=== PATIENT | male | born 1965 | race African-American/Black ===

== ENCOUNTER 2016-09-10 13:02 | Inpatient (IN) | payer MEDICARE, MEDICAID ==
[2016-09-10] VITALS (7 sets, daily range): BP systolic 167–184; BP diastolic 80–99
[~2016-09-10] VITALS: Ht 185.4 cm; Wt 95.0 kg
[~2016-09-10 13:02] MED LIST: CEPHALEXIN500 MG OR; FLEXERIL OR; GLIPIZIDE ER10 MG OR; KEFLEX500 MG PO; LORTAB 10 PO; LORTAB 5 OR; MEDDOSEPAK OR; METFORMIN500 MG PO; NAPROXEN375 MG OR; NEURONTIN100 MG PO; NEURONTIN300 MG OR; NOVOLIN 70/30 SC; NOVOLIN 701000 UNITS SC; NOVOLOG MIX100 U/ML SC; REGLAN10 MG PO; ULTRAM50 M1 PO; ZOFRAN ODT8 MG OR; [UNRECOGNIZED DRUG - REMARK]
[2016-09-10 14:32] LABS: HEMATOCRIT 29.3 % (39.0-50.0); HEMOGLOBIN 9.3 g/dl (14.0-18.0); IMMATURE GRANULOCYTES 1.3 % (0.0-1.0); MEAN CELL VOLUME 79.8 fL CALC (80.0-100.0); MEAN CORPUSCULAR HGB 25.3 pG CALC (26.0-32.0); MEAN CORPUSCULAR HGB CONC 31.7 g/L CALC (32.0-36.0); NEUT# 24.48 thou/uL (1.82-7.42); RED BLOOD COUNT 3.67 mill/uL (4.70-6.10); RED CELL DISTRI WIDTH 14.7 % (11.5-15.5)
[2016-09-10 14:51] LABS: ALBUMIN 3.9 g/dL (3.2-5.0); ALKALINE PHOSPHATASE 207 u/l (38-126); AMYLASE 187 u/l (30-110); ANION GAP 31 (6-22 (CALC)); BILIRUBIN, TOTAL 1.1 mg/dL (0.0-1.4); BUN 21 mg/dL (9-20); BUN/CREATININE RATIO 14 (12-20 (CALC)); CALCIUM 9.9 mg/dL (8.4-10.2); CARBON DIOXIDE 16 mmol/l (22-30); CHLORIDE 97 mmol/l (95-108); CREATININE 1.6 mg/dL (0.7-1.3); GFR 45 ML/MIN (>=60 (CALC)); GFR FOR AFR.AMER. 55 ML/MIN (>=60 (CALC)); LIPASE 17 u/l (23-300); POTASSIUM 4.2 mmol/l (3.5-5.1); SGOT/AST 14 u/l (17-59); SGPT/ALT 15 u/l (21-72); SODIUM 139 mmol/l (137-146); TOTAL PROTEIN 8.9 g/dL (6.3-8.2)
[2016-09-10 14:59] LABS: GLUCOSE 630 mg/dL (75-110)
[2016-09-10 15:02] LABS: MYOGLOBIN 79 ng/mL (0 - 121)
[2016-09-10 18:52] LABS: POTASSIUM 4.5 mmol/l (3.5-5.1)
[2016-09-10 23:37] LABS: URINE BILIRUBIN - DIPSTICK NEGATIVE (NEGATIVE); URINE BLOOD DIPSTICK LARGE (NEGATIVE); URINE CLARITY CLEAR; URINE COLOR YELLOW; URINE GLUCOSE - DIPSTICK >=1000 mg/dL (NEGATIVE); URINE KETONE >=80 mg/dL (NEGATIVE); URINE LEUK ESTERASE NEGATIVE (Negative); URINE NITRITE - DIPSTICK NEGATIVE (Negative); URINE PH 5.5 (4.5-8.0); URINE PROTEIN - DIPSTICK >=300 mg/dL (NEG-TRACE); URINE UROBILINOGEN - DIPSTICK 0.2 E.U./dL (0.2)
[2016-09-10 23:52] LABS: URINE WBC 0-2 WBC/hpf (0-5)
[2016-09-11] VITALS (26 sets, daily range): BP systolic 142–197; BP diastolic 55–112
[2016-09-11 00:52] LABS: POTASSIUM 4.1 mmol/l (3.5-5.1)
[2016-09-11 04:40] LABS: HEMATOCRIT 31.4 % (39.0-50.0); HEMOGLOBIN 10.2 g/dl (14.0-18.0); MEAN CELL VOLUME 78.3 fL CALC (80.0-100.0); MEAN CORPUSCULAR HGB 25.4 pG CALC (26.0-32.0); MEAN CORPUSCULAR HGB CONC 32.5 g/L CALC (32.0-36.0); NEUT# 22.36 thou/uL (1.82-7.42); RED BLOOD COUNT 4.01 mill/uL (4.70-6.10); RED CELL DISTRI WIDTH 15.2 % (11.5-15.5)
[2016-09-11 04:58] LABS: MAGNESIUM 1.8 mg/dL (1.6-2.3)
[2016-09-11 05:01] LABS: ANION GAP 24 (6-22 (CALC)); BUN 18 mg/dL (9-20); BUN/CREATININE RATIO 16 (12-20 (CALC)); CALCIUM 9.7 mg/dL (8.4-10.2); CARBON DIOXIDE 18 mmol/l (22-30); CHLORIDE 109 mmol/l (95-108); CREATININE 1.1 mg/dL (0.7-1.3); GFR > 60 ML/MIN (>=60 (CALC)); GFR FOR AFR.AMER. > 60 ML/MIN (>=60 (CALC)); GLUCOSE 373 mg/dL (75-110); POTASSIUM 3.9 mmol/l (3.5-5.1); SODIUM 147 mmol/l (137-146)
[2016-09-11 10:42] LABS: ANION GAP 19 (6-22 (CALC)); BUN 16 mg/dL (9-20); BUN/CREATININE RATIO 16 (12-20 (CALC)); CALCIUM 9.5 mg/dL (8.4-10.2); CARBON DIOXIDE 22 mmol/l (22-30); CHLORIDE 109 mmol/l (95-108); GFR > 60 ML/MIN (>=60 (CALC)); GFR FOR AFR.AMER. > 60 ML/MIN (>=60 (CALC)); GLUCOSE 300 mg/dL (75-110); POTASSIUM 3.6 mmol/l (3.5-5.1); SODIUM 146 mmol/l (137-146)
[2016-09-11 14:09] LABS: ANION GAP 19 (6-22 (CALC)); BUN 14 mg/dL (9-20); BUN/CREATININE RATIO 15 (12-20 (CALC)); CALCIUM 9.4 mg/dL (8.4-10.2); CARBON DIOXIDE 20 mmol/l (22-30); CHLORIDE 109 mmol/l (95-108); GFR > 60 ML/MIN (>=60 (CALC)); GFR FOR AFR.AMER. > 60 ML/MIN (>=60 (CALC)); GLUCOSE 283 mg/dL (75-110); POTASSIUM 3.7 mmol/l (3.5-5.1); SODIUM 145 mmol/l (137-146)
[2016-09-12] VITALS (10 sets, daily range): BP systolic 150–179; BP diastolic 78–97
[2016-09-12 04:40] LABS: HEMATOCRIT 35.5 % (39.0-50.0); HEMOGLOBIN 11.6 g/dl (14.0-18.0); IMMATURE GRANULOCYTES 0.9 % (0.0-1.0); MEAN CORPUSCULAR HGB 25.2 pG CALC (26.0-32.0); MEAN CORPUSCULAR HGB CONC 32.7 g/L CALC (32.0-36.0); NEUT# 16.95 thou/uL (1.82-7.42); RED BLOOD COUNT 4.61 mill/uL (4.70-6.10); RED CELL DISTRI WIDTH 15.5 % (11.5-15.5)
[2016-09-12 05:03] LABS: ALBUMIN 3.3 g/dL (3.2-5.0); ALKALINE PHOSPHATASE 190 u/l (38-126); ANION GAP 19 (6-22 (CALC)); BILIRUBIN, TOTAL 0.7 mg/dL (0.0-1.4); BUN 15 mg/dL (9-20); BUN/CREATININE RATIO 16 (12-20 (CALC)); CALCIUM 9.3 mg/dL (8.4-10.2); CARBON DIOXIDE 22 mmol/l (22-30); CHLORIDE 103 mmol/l (95-108); CREATININE 0.9 mg/dL (0.7-1.3); GFR > 60 ML/MIN (>=60 (CALC)); GFR FOR AFR.AMER. > 60 ML/MIN (>=60 (CALC)); GLUCOSE 280 mg/dL (75-110); MAGNESIUM 1.5 mg/dL (1.6-2.3); POTASSIUM 3.7 mmol/l (3.5-5.1); SGOT/AST 14 u/l (17-59); SGPT/ALT 21 u/l (21-72); SODIUM 139 mmol/l (137-146)
== END 2016-09-12 12:25 | DRG 871 ==
LOC: ED 13:02 → ED-I 16:00 → ED 17:44 → ICU 17:45
PROVIDERS: Emergency Medicine; ADMIT Internal Medicine; ATTEND Internal Medicine
PROC: 02HV33Z Insertion of Infusion Device into Superior Vena Cava, Percutaneous Approach (ICD-10-PCS; principal; 2016-09-11)
PROC: B518ZZA Fluoroscopy of Superior Vena Cava, Guidance (ICD-10-PCS; 2016-09-11)
DX: A41.02 Sepsis due to Methicillin resistant Staphylococcus aureus (principal); E13.10 Other specified diabetes mellitus with ketoacidosis without coma; N17.9 Acute kidney failure, unspecified; M86.9 Osteomyelitis, unspecified; R65.20 Severe sepsis without septic shock; E11.40 Type 2 diabetes mellitus with diabetic neuropathy, unspecified; E11.621 Type 2 diabetes mellitus with foot ulcer; E11.69 Type 2 diabetes mellitus with other specified complication; I10 Essential (primary) hypertension; L97.529 Non-pressure chronic ulcer of other part of left foot with unspecified severity; Z79.4 Long term (current) use of insulin; Z91.14 Patient's other noncompliance with medication regimen
CPT/HCPCS: J3370

== ENCOUNTER 2017-09-14 19:41 | Emergency (ER) | payer MEDICARE, MEDICAID ==
[~2017-09-14] VITALS: Ht 185.4 cm; Wt 102.6 kg
[2017-09-14 20:45] VITALS: BP 149/81
== END 2017-09-14 20:45 | disposition home or self-care (01) ==
LOC: ED 19:41
DX: T63.2X1A Toxic effect of venom of scorpion, accidental (unintentional), initial encounter (principal); E11.9 Type 2 diabetes mellitus without complications; C95.90 Leukemia, unspecified not having achieved remission; Z89.512 Acquired absence of left leg below knee

== ENCOUNTER 2018-06-14 20:40 | Emergency (ER) | payer MEDICARE, OTHER ==
[~2018-06-14] VITALS: Ht 185.4 cm; Wt 95.0 kg
[2018-06-14] MEDS ORDERED: AMOXICILLIN500 MG PO (22:47)
[2018-06-14 22:50] VITALS: BP 151/92
== END 2018-06-14 23:10 | disposition home or self-care (01) ==
LOC: ED 20:40
DX: J20.9 Acute bronchitis, unspecified (principal); E11.9 Type 2 diabetes mellitus without complications; C95.90 Leukemia, unspecified not having achieved remission; Z89.512 Acquired absence of left leg below knee

== ENCOUNTER 2018-10-02 09:39 | Emergency (ER) | payer MEDICARE, MEDICAID ==
[~2018-10-02] VITALS: Ht 185.4 cm; Wt 100.0 kg
[~2018-10-02 09:39] MED LIST changes: +AMOXICILLIN500 MG PO
[2018-10-02] MEDS ORDERED: CLEOCIN300 MG PO (10:42)
[2018-10-02 10:45] VITALS: BP 146/78
== END 2018-10-02 10:51 | disposition home or self-care (01) ==
LOC: ED 09:39
DX: S91.331A Puncture wound without foreign body, right foot, initial encounter (principal); E11.9 Type 2 diabetes mellitus without complications; Z89.512 Acquired absence of left leg below knee; W45.0XXA Nail entering through skin, initial encounter

== ENCOUNTER 2018-12-11 10:58 | Observation (INO) | payer MEDICARE, MEDICAID ==
[~2018-12-11] VITALS: Ht 185.4 cm; Wt 93.9 kg
[~2018-12-11 10:58] MED LIST changes: +CLEOCIN300 MG PO
[2018-12-11 11:21] LABS: HEMATOCRIT 36.7 % (39.0-50.0); HEMOGLOBIN 12.2 g/dl (14.0-18.0); IMMATURE GRANULOCYTES 0.4 % (0.0-5.0); MEAN CORPUSCULAR HGB 26.9 pG CALC (26.0-32.0); MEAN CORPUSCULAR HGB CONC 33.2 g/L CALC (32.0-36.0); NEUT# 5.59 thou/uL (1.82-7.42); RED BLOOD COUNT 4.53 mill/uL (4.70-6.10); RED CELL DISTRI WIDTH 12.7 % (11.5-15.5)
[2018-12-11 11:40] LABS: ALBUMIN 3.4 g/dL (3.2-5.0); BILIRUBIN, TOTAL 0.7 mg/dL (0.0-1.4); CREATININE 1.5 mg/dL (0.7-1.3); POTASSIUM 4.5 mmol/l (3.5-5.1); TOTAL PROTEIN 6.9 g/dL (6.3-8.2)
[2018-12-11 13:31] LABS: URINE BILIRUBIN - DIPSTICK NEGATIVE (NEGATIVE); URINE BLOOD DIPSTICK SMALL (NEGATIVE); URINE COLOR YELLOW; URINE GLUCOSE - DIPSTICK >=1000 mg/dL (NEGATIVE); URINE KETONE NEGATIVE (NEGATIVE); URINE LEUK ESTERASE NEGATIVE (NEGATIVE); URINE NITRITE - DIPSTICK NEGATIVE (Negative); URINE PH 5.5 (4.5-8.0); URINE PROTEIN - DIPSTICK 100 mg/dL (NEG-TRACE); URINE SPECIFIC GRAVITY 1.015; URINE UROBILINOGEN - DIPSTICK 0.2 E.U./dL (0.2)
[2018-12-11 13:34] LABS: URINE EPITHELIAL CELLS FEW EPI/hpf (0-FEW); URINE MUCUS FEW hpf (NONE-FEW); URINE WBC 0-2 WBC/hpf (0-5)
[2018-12-11 14:49] VITALS: BP 164/80
[2018-12-11 19:15] VITALS: BP 128/76
[2018-12-12 00:10] VITALS: BP 131/80
[2018-12-12 04:22] VITALS: BP 139/83
[2018-12-12 05:56] LABS: HEMATOCRIT 33.7 % (39.0-50.0); HEMOGLOBIN 11.2 g/dl (14.0-18.0); IMMATURE GRANULOCYTES 0.4 % (0.0-5.0); MEAN CELL VOLUME 81.2 fL CALC (80.0-100.0); MEAN CORPUSCULAR HGB CONC 33.2 g/L CALC (32.0-36.0); NEUT# 3.78 thou/uL (1.82-7.42); RED BLOOD COUNT 4.15 mill/uL (4.70-6.10); RED CELL DISTRI WIDTH 12.7 % (11.5-15.5)
[2018-12-12 06:07] LABS: ALBUMIN 2.7 g/dL (3.2-5.0); ALKALINE PHOSPHATASE 113 u/l (38-126); AMYLASE 62 u/l (30-110); ANION GAP 8 (6-22 (CALC)); BILIRUBIN, TOTAL 0.6 mg/dL (0.0-1.4); BUN 19 mg/dL (9-20); BUN/CREATININE RATIO 19 (12-20 (CALC)); CARBON DIOXIDE 26 mmol/l (22-30); CHLORIDE 107 mmol/l (95-108); GFR > 60 ML/MIN (>=60 (CALC)); GFR FOR AFR.AMER. > 60 ML/MIN (>=60 (CALC)); LIPASE 38 u/l (23-300); MAGNESIUM 1.4 mg/dL (1.6-2.3); POTASSIUM 4.1 mmol/l (3.5-5.1); SGOT/AST 14 u/l (17-59); SODIUM 138 mmol/l (137-146); TOTAL PROTEIN 5.7 g/dL (6.3-8.2)
[2018-12-12 08:07] VITALS: BP 140/78
[2018-12-12 12:12] VITALS: BP 139/83
[2018-12-12] MEDS ORDERED: LEVEMIR100 UNIT/M SC (13:58)
[2018-12-12] MEDS ORDERED: LISINOPRIL20 M1 PO (13:58)
[2018-12-12] MEDS ORDERED: PANTOPRAZOLE SO40 M1 PO (13:58)
== END 2018-12-12 14:30 | disposition home or self-care (01) ==
LOC: ED 10:58 → ED-I 13:12 → ED 13:30 → MS2 13:31
PROVIDERS: Family Medicine; ADMIT Internal Medicine Nephrology; ATTEND Internal Medicine Nephrology
DX: E11.65 Type 2 diabetes mellitus with hyperglycemia (principal); E11.40 Type 2 diabetes mellitus with diabetic neuropathy, unspecified; E11.51 Type 2 diabetes mellitus with diabetic peripheral angiopathy without gangrene; I10 Essential (primary) hypertension; C95.90 Leukemia, unspecified not having achieved remission; Z91.11 Patient's noncompliance with dietary regimen; Z79.4 Long term (current) use of insulin; Z89.512 Acquired absence of left leg below knee
CPT/HCPCS: J1650

== ENCOUNTER 2019-02-17 11:09 | Emergency (ER) | payer MEDICARE, MEDICAID ==
[~2019-02-17] VITALS: Ht 185.4 cm; Wt 100.0 kg
[~2019-02-17 11:09] MED LIST changes: +LEVEMIR100 UNIT/M SC; +LISINOPRIL20 M1 PO; +PANTOPRAZOLE SO40 M1 PO
[2019-02-17] MEDS ORDERED: LISINOPRIL20 M1 PO (12:03)
[2019-02-17] MEDS ORDERED: PROTONIX40 MG PO (12:04)
[2019-02-17] MEDS ORDERED: MEDDOSEPAK PO (12:19)
[2019-02-17] MEDS ORDERED: DICLOFENAC50 MG PO (12:19)
[2019-02-17 12:25] VITALS: BP 149/87
== END 2019-02-17 12:25 | disposition home or self-care (01) ==
LOC: ED 11:09
DX: M25.512 Pain in left shoulder (principal); G89.29 Other chronic pain; E11.9 Type 2 diabetes mellitus without complications; Z89.512 Acquired absence of left leg below knee; Z79.4 Long term (current) use of insulin

== ENCOUNTER 2019-03-19 10:52 | Emergency (ER) | payer MEDICARE, MEDICAID ==
[~2019-03-19] VITALS: Ht 185.4 cm; Wt 110.0 kg
[~2019-03-19 10:52] MED LIST changes: +DICLOFENAC50 MG PO; +MEDDOSEPAK PO; +PROTONIX40 MG PO
[2019-03-19] MEDS ORDERED: IBUPROFEN600 MG PO (11:52)
[2019-03-19] MEDS ORDERED: KEFLEX500 MG PO (11:52)
[2019-03-19 12:30] VITALS: BP 121/86
== END 2019-03-19 12:29 | disposition home or self-care (01) ==
LOC: ED 10:52
DX: S80.02XA Contusion of left knee, initial encounter (principal); E11.9 Type 2 diabetes mellitus without complications; W17.2XXA Fall into hole, initial encounter; Z96.653 Presence of artificial knee joint, bilateral; Z79.4 Long term (current) use of insulin

== ENCOUNTER 2019-05-25 10:18 | Emergency (ER) | payer MEDICARE, MEDICAID ==
[~2019-05-25] VITALS: Ht 185.4 cm; Wt 111.0 kg
[~2019-05-25 10:18] MED LIST changes: +IBUPROFEN600 MG PO
[2019-05-25 12:49] LABS: HEMATOCRIT 35.7 % (39.0-50.0); HEMOGLOBIN 11.2 g/dl (14.0-18.0); IMMATURE GRANULOCYTES 0.3 % (0.0-5.0); MEAN CELL VOLUME 84.6 fL CALC (80.0-100.0); MEAN CORPUSCULAR HGB 26.5 pG CALC (26.0-32.0); MEAN CORPUSCULAR HGB CONC 31.4 g/L CALC (32.0-36.0); NEUT# 4.06 thou/uL (1.82-7.42); RED BLOOD COUNT 4.22 mill/uL (4.70-6.10); RED CELL DISTRI WIDTH 13.7 % (11.5-15.5)
[2019-05-25 13:05] LABS: ALBUMIN 2.9 g/dL (3.2-5.0); ALKALINE PHOSPHATASE 137 u/l (38-126); ANION GAP 10 (6-22 (CALC)); BILIRUBIN, TOTAL 0.4 mg/dL (0.0-1.4); BUN 16 mg/dL (9-20); BUN/CREATININE RATIO 14 (12-20 (CALC)); CARBON DIOXIDE 22 mmol/l (22-30); CHLORIDE 113 mmol/l (95-108); CREATININE 1.2 mg/dL (0.7-1.3); GFR > 60 ML/MIN (>=60 (CALC)); GFR FOR AFR.AMER. > 60 ML/MIN (>=60 (CALC)); POTASSIUM 4.4 mmol/l (3.5-5.1); SODIUM 140 mmol/l (137-146); TOTAL PROTEIN 6.3 g/dL (6.3-8.2)
[2019-05-25 13:08] LABS: SGOT/AST 25 u/l (17-59)
[2019-05-25] MEDS ORDERED: KEFLEX500 MG PO (13:44)
[2019-05-25 14:34] VITALS: BP 159/60
--- NOTE | 2019-05-28 09:08 | NUR ---
Received critical results of blood culture growing gram positive cocci in 1 of 2 sets. Attempted to reach pt by phone, left voicemail message to return call. Per previous note, pt was contacted by ED nurse yesterday and pt stated he was feeling better. Possible contaminant in blood culture, however will continue to attempt to contact patient. Will follow-up with final results tomorrow.
--- NOTE | 2019-05-28 11:17 | NUR ---
DR GIRALDO NOTIFIED OF PRELIMINARY BLOOD CULTURE RESULTS.
--- NOTE | 2019-05-29 14:22 | NUR ---
Attempted to contact patient again, no answer. Notified Kayden Richard APRN, in ED of final blood culture results growing staph epi in 1 of 2 sets. Most likely a contaminant.
== END 2019-05-25 14:42 | disposition home or self-care (01) ==
LOC: ED 10:18
DX: T87.44 Infection of amputation stump, left lower extremity (principal); L03.116 Cellulitis of left lower limb; E11.9 Type 2 diabetes mellitus without complications; Y83.5 Amputation of limb(s) as the cause of abnormal reaction of the patient, or of later complication, without mention of misadventure at the time of the procedure; Z79.4 Long term (current) use of insulin

== ENCOUNTER 2019-06-27 13:43 | Emergency (ER) | payer MEDICARE, MEDICAID ==
[2019-06-27] MEDS ORDERED: NOVOLOG MIX SC (14:00)
[2019-06-27] MEDS ORDERED: TESSALON PER100 MG PO (14:34)
[2019-06-27] MEDS ORDERED: ZITHROMAX500 MG PO (14:34)
[2019-06-27 14:43] VITALS: BP 123/71
== END 2019-06-27 14:44 | disposition home or self-care (01) ==
LOC: ED 13:43
DX: J20.9 Acute bronchitis, unspecified (principal); E11.9 Type 2 diabetes mellitus without complications; Z79.4 Long term (current) use of insulin

== ENCOUNTER 2020-02-05 17:03 | Observation (INO) | payer MEDICARE, MEDICAID ==
[~2020-02-05] VITALS: Ht 185.4 cm; Wt 99.1 kg
[~2020-02-05 17:03] MED LIST changes: +NOVOLOG MIX SC; +TESSALON PER100 MG PO; +ZITHROMAX500 MG PO
--- NOTE | 2020-02-05 17:15 | NUR ---
PATIENT TO ROOM WITH A STEADY GAIT.
[2020-02-05] MEDS ORDERED: NOVOLOG MIX SC ×2 (17:24→17:25)
[2020-02-05] MEDS ORDERED: NOVOLIN 70/30 SC (17:24)
[2020-02-05 17:42] LABS: HEMATOCRIT 39.5 % (39.0-50.0); HEMOGLOBIN 12.7 g/dl (14.0-18.0); IMMATURE GRANULOCYTES 0.3 % (0.0-5.0); MEAN CELL VOLUME 82.3 fL CALC (80.0-100.0); MEAN CORPUSCULAR HGB 26.5 pG CALC (26.0-32.0); MEAN CORPUSCULAR HGB CONC 32.2 g/dL CAL (32.0-36.0); NEUT# 6.28 thou/uL (1.82-7.42); RED BLOOD COUNT 4.8 mill/uL (4.70-6.10); RED CELL DISTRI WIDTH 13.2 % (11.5-15.5)
[2020-02-05 17:53] LABS: BILIRUBIN, TOTAL 0.4 mg/dL (0.0-1.4); POTASSIUM 3.7 mmol/l (3.5-5.1); TOTAL PROTEIN 7.4 g/dL (6.3-8.2)
[2020-02-05 17:54] LABS: ALBUMIN 3.5 g/dL (3.2-5.0); CREATININE 4.2 mg/dL (0.7-1.3)
--- NOTE | 2020-02-05 18:10 | NUR ---
EDP AT BEDSIDE TO DISCUSS CLINICAL FINDINGS WITH PT AND POC
--- NOTE | 2020-02-05 18:20 | NUR ---
PT PRESENTS WITH ACHES ALL OVER BODY AND STATES THAT HE IS DIABETIC, DOES NOT CHECK HIS BG FREQUENTLY BUT DOES TAKE HIS MEDICATION. INTERM HEADACHES. PT DISCRIBES ACHES CRAMPING. STARTED A FEW DAYS AGO. AOX4. DENIES ANY OTHER COMPLICATIONS. WILL CONTINUE TO MONITOR.
--- NOTE | 2020-02-05 19:30 | NUR ---
GAVE REPORT TO MED SURG NURSE
--- NOTE | 2020-02-05 19:38 | NUR ---
Admission Note Report Given to: SBAR PRINTED TO FLOOR Transported by: X Wheelchair Stretcher Transported with: X Nurse Transporter X Patent IV O2 X Small Engine Technician Location: ICU X MS2
--- NOTE | 2020-02-05 19:44 | NUR ---
PT TRANSPORTED TO MED SURG VIA W/C STABLE AND IN NO DISTRESS. CARE ASSUMED TO MED SURG NURSE
--- NOTE | 2020-02-05 19:49 | NUR ---
REPORT RECIEVED FROM NETTIE ANGULO. PT ARRIVED TO [facility] ROOM 272 IN STABLE CONDITIION VIA PORTABLE ACCOMPAINED BY OR STAFF. PT AMBULATED FROM PORTABLE TO BED WITH LITTLE DIFFICULTY. INTRODUCED SELF TO PT AND DISCUSSED POC. ASSESSMENT AND VITALS COMPLETED AT THIS TIME. RESPIRATIONS ARE EVEN AND UNLABORED WITH NO SIGNS OF DISTRESS. LUNG SOUNDS ARE CLEAR. HEART RHYTHM IS NORMAL WITH TELE IN PLACE. BOWEL SOUNDS ARE ACTIVE IN ALL QUADRANTS, LSDT REPORTED BM 02/05/20. RADIAL AND RIGHT PEDAL PULSES ARE STRONG WITH NORMAL CAPILLARY REFILL. LEFT LEG IS AMPUTATED. PT HAS CANE AND PROSTHETIC LEG AT BEDSIDE.FALL RISK BAND APPLIED. #20 IN RAC FLUSHED, SITE APPEARS HEALTHY AND PATENT. NS STARTED AT 125 ML ORDERED. PT COMPLAINS OF CRAMPING IN THIGHS, WRITTER OFFERED TYLENOL. PT REDUSED STATING "MAYBE I WILL WAIT TILL A LITTLE LATER." PT INFORMS WRITTER THAT HE DOES NOT HAVE ANY ALLERGIES, ALLERY BAND APPLIED.PT INFORMS WRITTER THAT HE DOES SMOKE MARIJUANA AND DRINK "ONCE IN A BLUE KAYE" PT INFORMED WRITTER THAT HE HAS NOT EATEN, TURKEY SANDWICH GIVEN DUE TO KITCHEN BEING CLOSED. PT ORIENTED TO ROOM AND CALL LIGHT SYSTEM AT THIS TIME. ALL SAFETY PRECAUTIONS ARE IN PLACE WITH CALL LIGHT IN REACH. WILL CONTINUE TO MONITOR.
--- NOTE | 2020-02-05 20:19 | NUR ---
REPORT FROM AMARIS SHORE. PT SITTING UP IN BED EATING SANDWICH. NO APPARENT DISTRESS NOTED. PT DENIES ANY CURRENT WANTS OR NEEDS. CALL LIGHT WITHIN REACH. WILL CONTINUE TO MONITOR.
[2020-02-05 20:57] VITALS: BP 136/83
--- NOTE | 2020-02-06 00:36 | NUR ---
PT RESTING IN BED WITH EYES CLOSED. NO APPARENT DISTRESS NOTED. RESPIRATIONS EVEN AND UNLABORED. CALL LIGHT WITHIN REACH. WILL CONTINUE TO MONITOR.
--- NOTE | 2020-02-06 03:28 | NUR ---
PT MEDICATED FOR HEADACHE WITH PRN APAP. PT DENIES ANY OTHER WANTS OR NEEDS AT THIS TIME. CALL LIGHT WITHIN REACH. WILL CONTINUE TO MONITOR.
[2020-02-06 04:50] VITALS: BP 130/87
[2020-02-06 06:50] LABS: HEMATOCRIT 37.8 % (39.0-50.0); HEMOGLOBIN 11.9 g/dl (14.0-18.0); MEAN CELL VOLUME 84.2 fL CALC (80.0-100.0); MEAN CORPUSCULAR HGB 26.5 pG CALC (26.0-32.0); MEAN CORPUSCULAR HGB CONC 31.5 g/dL CAL (32.0-36.0); RED BLOOD COUNT 4.49 mill/uL (4.70-6.10); RED CELL DISTRI WIDTH 13.2 % (11.5-15.5)
[2020-02-06 07:09] LABS: POTASSIUM 3.8 mmol/l (3.5-5.1)
[2020-02-06 07:10] LABS: CREATININE 2.8 mg/dL (0.7-1.3); MAGNESIUM 2.3 mg/dL (1.6-2.3)
[2020-02-06 07:11] VITALS: BP 118/76
--- NOTE | 2020-02-06 07:11 | NUR ---
PT SLEEPING IN BED. AWAKENED TO COMPLETE ASSESSMENT. A&O X3. NO DISTRESS NOTED. PT DENIES ANY NEEDS OR PAIN AT THIS TIME. ASSESSMENT COMPLETED. DISCUSSED POC. CALL LIGHT IN REACH. CONTINUE TO MONITOR.
[2020-02-06 11:05] VITALS: BP 137/83
--- NOTE | 2020-02-06 13:45 | NUR ---
PT SITTING IN BED WATCHING TV. NO DISTRESS OR NEEDS AT THIS TIME. CALL LIGHT IN REACH. CONTINUE TO MONITOR.
[2020-02-06 15:02] VITALS: BP 143/89
--- NOTE | 2020-02-06 16:50 | NUR ---
PT SITTING IN BED WATCHING TV. NO DISTRESS OR NEEDS AT THIS TIME. CALL LIGHT IN REACH. CONTINUE TO MONITOR.
[2020-02-06 17:01] LABS: URINE BILIRUBIN - DIPSTICK NEGATIVE (NEGATIVE); URINE BLOOD DIPSTICK SMALL (NEGATIVE); URINE COLOR YELLOW; URINE GLUCOSE - DIPSTICK NEGATIVE (NEGATIVE); URINE KETONE NEGATIVE (NEGATIVE); URINE LEUK ESTERASE NEGATIVE (NEGATIVE); URINE NITRITE - DIPSTICK NEGATIVE (Negative); URINE PROTEIN - DIPSTICK 100 mg/dL (NEG-TRACE); URINE SPECIFIC GRAVITY 1.025; URINE UROBILINOGEN - DIPSTICK 0.2 E.U./dL (0.2)
[2020-02-06 17:29] LABS: URINE SQUAMOUS EPITHELIAL CELL FEW EPI/hpf (0-FEW)
--- NOTE | 2020-02-06 19:05 | NUR ---
REPORT FROM AUTUMN RN. PT NOTED RESTING IN BED WATCHING TV. PT ALERT AND ORIENTED. NO APPARENT DISTRESS NOTED. RESPIRATIONS EVEN AND UNLABORED. PT DENIES ANY PAIN OR DISCOMFORT. IVF INFUSING WITHOUT DIFFICULTY. DISCUSSED POC. PT VERBALIZED UNDERSTANDING. CALL LIGHT WITHIN REACH. WILL CONTINUE TO MONITOR.
[2020-02-06 19:22] VITALS: BP 147/87
--- NOTE | 2020-02-06 20:41 | NUR ---
PT MEDICATED ORDERED. DIABETIC SNACK PROVIDED AT THIS TIME. PT DENIES ANY OTHER WANTS OR NEEDS. CALL LIGHT WITHIN REACH. WILL CONTINUE TO MONITOR.
--- NOTE | 2020-02-06 23:16 | NUR ---
PT RESTING IN BED WITH EYES CLOSED. NO APPARENT DISTRESS NOTED. RESPIRATIONS EVEN AND UNLABORED. CALL LIGHT WITHIN REACH. WILL CONTINUE TO MONITOR.
[2020-02-07 00:23] VITALS: BP 138/86
--- NOTE | 2020-02-07 03:45 | NUR ---
PT RESTING IN BED WITH EYES CLOSED. NO APPARENT DISTRESS NOTED. RESPIRATIONS EVEN AND UNLABORED. CALL LIGHT WITHIN REACH. WILL CONTINUE TO MONITOR.
[2020-02-07 05:03] VITALS: BP 137/79
[2020-02-07 07:36] VITALS: BP 152/92
--- NOTE | 2020-02-07 07:36 | NUR ---
PT SLEEPING IN BED. AWAKENED TO COMPLETE ASSESSMENT. A&O X3. NO DISTRESS NOTED. PT DENIES ANY PAIN AT THIS TIME. ASSESSMENT COMPLETED. DISCUSSED POC. CALL LIGHT IN REACH. CONTINUE TO MONITOR.
[2020-02-07] MEDS ORDERED: ATORVASTATIN CA40 MG PO (10:52)
[2020-02-07 11:14] VITALS: BP 150/89
--- NOTE | 2020-02-07 13:02 | NUR ---
PT SITTING IN BED WATCHING TV, NO NEEDS AT THIS TIME. CALL LIGHT IN REACH. CONTINUE TO MONITOR.
--- NOTE | 2020-02-07 13:56 | NUR ---
Discharge instructions given. Patient verbalizes understanding of same. Discharged in stable condition via Wheelchair to Home accompanied by this ticket writer. All belongings sent with pt.
== END 2020-02-07 13:56 | disposition home or self-care (01) ==
LOC: ED 17:03 → ED-I 18:02 → ED 18:12 → MS2 18:13
PROVIDERS: Family Medicine; Nurse Practitioner; ADMIT Internal Medicine; ATTEND Internal Medicine
DX: N17.9 Acute kidney failure, unspecified (principal); E86.0 Dehydration; E11.40 Type 2 diabetes mellitus with diabetic neuropathy, unspecified; E11.65 Type 2 diabetes mellitus with hyperglycemia; E11.69 Type 2 diabetes mellitus with other specified complication; E78.5 Hyperlipidemia, unspecified; C95.90 Leukemia, unspecified not having achieved remission; Z79.4 Long term (current) use of insulin; Z89.512 Acquired absence of left leg below knee; Z91.14 Patient's other noncompliance with medication regimen; Z20.828 Contact with and (suspected) exposure to other viral communicable diseases
CPT/HCPCS: G0378

== ENCOUNTER 2020-07-19 09:28 | Inpatient (IN) | payer MEDICARE, MEDICAID ==
[~2020-07-19] VITALS: Ht 185.4 cm; Wt 93.0 kg
[~2020-07-19 09:28] MED LIST changes: +ATORVASTATIN CA40 MG PO
[2020-07-19 10:08] LABS: HEMATOCRIT 34.7 % (39.0-50.0); HEMOGLOBIN 10.9 g/dl (14.0-18.0); IMMATURE GRANULOCYTES 0.6 % (0.0-5.0); MEAN CELL VOLUME 85.7 fL CALC (80.0-100.0); MEAN CORPUSCULAR HGB 26.9 pG CALC (26.0-32.0); MEAN CORPUSCULAR HGB CONC 31.4 g/dL CAL (32.0-36.0); NEUT# 16.81 thou/uL (1.82-7.42); RED BLOOD COUNT 4.05 mill/uL (4.70-6.10); RED CELL DISTRI WIDTH 14.1 % (11.5-15.5)
[2020-07-19] MEDS ORDERED: METFORMIN HCL500 M1 PO (10:10)
[2020-07-19] MEDS ORDERED: SMZ-TMP DS1 TAB PO (10:11)
[2020-07-19 10:26] LABS: ALBUMIN 3.4 g/dL (3.2-5.0); CREATININE 2.3 mg/dL (0.7-1.3); TOTAL PROTEIN 7.1 g/dL (6.3-8.2)
[2020-07-19 10:27] LABS: BILIRUBIN, TOTAL 0.9 mg/dL (0.0-1.4)
[2020-07-19 10:28] LABS: ACT PARTIAL THROMBO TIME 29.8 SECONDS (20.0-32.5); PROTHROMBIN TIME 9.8 SECONDS (9.0-12.5)
[2020-07-19 13:38] VITALS: BP 132/77
[2020-07-19 15:47] VITALS: BP 136/72
[2020-07-19 18:30] VITALS: BP 127/70
[2020-07-20] VITALS: BP 125/70
[2020-07-20 03:30] VITALS: BP 141/78
[2020-07-20 05:58] LABS: HEMATOCRIT 30.8 % (39.0-50.0); HEMOGLOBIN 9.6 g/dl (14.0-18.0); MEAN CELL VOLUME 86.8 fL CALC (80.0-100.0); MEAN CORPUSCULAR HGB CONC 31.2 g/dL CAL (32.0-36.0); RED BLOOD COUNT 3.55 mill/uL (4.70-6.10); RED CELL DISTRI WIDTH 14.1 % (11.5-15.5)
[2020-07-20 06:23] LABS: CREATININE 2.1 mg/dL (0.7-1.3); MAGNESIUM 1.6 mg/dL (1.6-2.3); POTASSIUM 4.3 mmol/l (3.5-5.1)
[2020-07-20 06:57] VITALS: BP 138/78
[2020-07-20 10:52] VITALS: BP 149/74
[2020-07-20 15:00] VITALS: BP 144/81
[2020-07-20 19:05] VITALS: BP 139/79
[2020-07-21 00:30] VITALS: BP 125/60
[2020-07-21 04:42] VITALS: BP 152/89
[2020-07-21 06:14] LABS: HEMATOCRIT 29.6 % (39.0-50.0); HEMOGLOBIN 9.3 g/dl (14.0-18.0); MEAN CELL VOLUME 85.1 fL CALC (80.0-100.0); MEAN CORPUSCULAR HGB 26.7 pG CALC (26.0-32.0); MEAN CORPUSCULAR HGB CONC 31.4 g/dL CAL (32.0-36.0); RED BLOOD COUNT 3.48 mill/uL (4.70-6.10); RED CELL DISTRI WIDTH 13.7 % (11.5-15.5)
[2020-07-21 06:47] LABS: CREATININE 2.2 mg/dL (0.7-1.3); POTASSIUM 4.3 mmol/l (3.5-5.1)
[2020-07-21 07:45] VITALS: BP 148/64
[2020-07-21 10:50] VITALS: BP 144/78
[2020-07-21 15:25] VITALS: BP 151/82
[2020-07-21 19:25] VITALS: BP 139/81
[2020-07-22] VITALS (11 sets, daily range): BP systolic 133–160; BP diastolic 68–88
[2020-07-22 08:47] LABS: HEMATOCRIT 32.6 % (39.0-50.0); HEMOGLOBIN 10.6 g/dl (14.0-18.0); IMMATURE GRANULOCYTES 0.6 % (0.0-5.0); MEAN CELL VOLUME 85.1 fL CALC (80.0-100.0); MEAN CORPUSCULAR HGB 27.7 pG CALC (26.0-32.0); MEAN CORPUSCULAR HGB CONC 32.5 g/dL CAL (32.0-36.0); NEUT# 5.9 thou/uL (1.82-7.42); RED BLOOD COUNT 3.83 mill/uL (4.70-6.10); RED CELL DISTRI WIDTH 13.6 % (11.5-15.5)
[2020-07-22 09:06] LABS: ALBUMIN 2.9 g/dL (3.2-5.0); TOTAL PROTEIN 6.4 g/dL (6.3-8.2)
[2020-07-22 09:11] LABS: BILIRUBIN, TOTAL 0.5 mg/dL (0.0-1.4)
[2020-07-23 04:00] VITALS: BP 137/84
[2020-07-23 07:09] VITALS: BP 141/72
[2020-07-23 08:31] LABS: HEMATOCRIT 32.1 % (39.0-50.0); HEMOGLOBIN 9.9 g/dl (14.0-18.0); MEAN CELL VOLUME 84.9 fL CALC (80.0-100.0); MEAN CORPUSCULAR HGB 26.2 pG CALC (26.0-32.0); MEAN CORPUSCULAR HGB CONC 30.8 g/dL CAL (32.0-36.0); RED BLOOD COUNT 3.78 mill/uL (4.70-6.10); RED CELL DISTRI WIDTH 13.5 % (11.5-15.5)
[2020-07-23 09:03] LABS: CREATININE 1.8 mg/dL (0.7-1.3); POTASSIUM 4.3 mmol/l (3.5-5.1)
[2020-07-23] MEDS ORDERED: LEVAQUIN750 M1 PO (10:09)
[2020-07-23 10:55] VITALS: BP 146/77
[2020-07-23] MEDS ORDERED: LORTAB5 PO (11:19)
== END 2020-07-23 13:30 | disposition home health service (06) | DRG 501 ==
LOC: ED 09:28 → ED-I 11:30 → ED 11:38 → MS2 11:39
PROVIDERS: Nurse Practitioner; Student in an Organized Health Care Education/Training Program; ADMIT Internal Medicine; ATTEND Internal Medicine
PROC: 0J9P0ZZ Drainage of Left Lower Leg Subcutaneous Tissue and Fascia, Open Approach (ICD-10-PCS; principal; 2020-07-22)
DX: T87.44 Infection of amputation stump, left lower extremity (principal); L02.416 Cutaneous abscess of left lower limb; N17.9 Acute kidney failure, unspecified; E11.40 Type 2 diabetes mellitus with diabetic neuropathy, unspecified; E11.65 Type 2 diabetes mellitus with hyperglycemia; E11.51 Type 2 diabetes mellitus with diabetic peripheral angiopathy without gangrene; E11.22 Type 2 diabetes mellitus with diabetic chronic kidney disease; I12.9 Hypertensive chronic kidney disease with stage 1 through stage 4 chronic kidney disease, or unspecified chronic kidney disease; N18.9 Chronic kidney disease, unspecified; E11.69 Type 2 diabetes mellitus with other specified complication; E78.5 Hyperlipidemia, unspecified; B96.89 Other specified bacterial agents as the cause of diseases classified elsewhere; Y83.5 Amputation of limb(s) as the cause of abnormal reaction of the patient, or of later complication, without mention of misadventure at the time of the procedure; Z79.4 Long term (current) use of insulin; Z89.512 Acquired absence of left leg below knee; Z20.822 Contact with and (suspected) exposure to COVID-19
CPT/HCPCS: J0692; J1650; J3370; Q3014

== ENCOUNTER 2020-11-17 09:40 | Observation (INO) | payer MEDICARE, MEDICAID ==
[~2020-11-17] VITALS: Ht 185.4 cm; Wt 93.0 kg
[~2020-11-17 09:40] MED LIST changes: -LIPITOR40 M1 PO; -METFORMIN500 M2 PO
--- NOTE | 2020-11-17 09:40 | NUR ---
TO ROOM FOR TRIAGE
--- NOTE | 2020-11-17 10:00 | NUR ---
PATIENT ACCUCHECK REDONE. PHYSICIAN AWARE
--- NOTE | 2020-11-17 10:40 | NUR ---
PATIENT RESTING QUIETLY. CALL MILLER IN REACH
--- NOTE | 2020-11-17 11:00 | NUR ---
REPORTED ACCUCHECK TO PHYSICIAN. PATIENT STABLE. CALL MILLER IN REACH
[2020-11-17 11:22] LABS: HEMATOCRIT 32.1 % (39.0-50.0); HEMOGLOBIN 10.3 g/dl (14.0-18.0); IMMATURE GRANULOCYTES 0.3 % (0.0-5.0); MEAN CELL VOLUME 82.9 fL CALC (80.0-100.0); MEAN CORPUSCULAR HGB 26.6 pG CALC (26.0-32.0); MEAN CORPUSCULAR HGB CONC 32.1 g/dL CAL (32.0-36.0); NEUT# 4.64 thou/uL (1.82-7.42); RED BLOOD COUNT 3.87 mill/uL (4.70-6.10)
[2020-11-17 12:26] LABS: ALBUMIN 2.8 g/dL (3.2-5.0); BILIRUBIN, TOTAL 0.4 mg/dL (0.0-1.4); CREATININE 2.7 mg/dL (0.7-1.3); POTASSIUM 4.6 mmol/l (3.5-5.1); TOTAL PROTEIN 6.2 g/dL (6.3-8.2)
--- NOTE | 2020-11-17 14:53 | NUR ---
REPORT CALLED TO FLOOR
--- NOTE | 2020-11-17 15:06 | NUR ---
PATIENT BELONGING LIST COMPLETED
[2020-11-17 15:34] VITALS: BP 161/86
--- NOTE | 2020-11-17 15:34 | NUR ---
PT ARRIVED TO MED-SURG FLOOR IN STABLE CONDITION VIA STRETCHER ACCOMPANIED BY ED NURSEPARUL;VS AND ASSESSMENT WERE COMPLETED;ARM BANDS WERE PLACED ON PT;BELONGING INVENTORY WAS COMPLETED;PT WAS ORIENTED TO ROOM, TV AND CALL LIGHT;HEART SOUNDS ARE REGULAR IN RATE AND RHYTHM;LUNG SOUNDS ARE CLEAR;RESPIRATIONS ARE EVEN AND UNLABORED ON RA;TELE IS IN PLACE;#20G IV IN LH IS SL, PATENT AND FREE OF COMPLICATIONS;PT IS A LT BKA;SCD IN PLACE ON RT LEG;BOWEL SOUNDS ARE ACTIVE IN ALL QUADRANTS;NO EDEMA PRESENT;SKIN INTACT;SAFETY PRECAUTIONS IN PLACE;CALL LIGHT WITHIN REACH;BED IN LOWEST POSITION;WILL CONTINUE TO MONITOR.
[2020-11-17 19:00] VITALS: BP 147/89
--- NOTE | 2020-11-17 20:00 | NUR ---
PHYSICAL ASSESMENT COMPLETE. PT CURRENTLY DENIES PAIN OR DISCOMFORT. SCHEDULED MEDICATIONS AND PRN MEDICATION ADMINISTERED, SEE E-MAR. PT DENIES ANY NEEDS AT THIS TIME. PLAN OF CARE REVIEWED, PT DENIES QUESTIONS, VERBALIZES UNDERSTANDING. ITEMS WITHIN REACH, BED LOCKED IN LOW POSITION W/ BEDRAILS UP X2. CALL MILLER WITHIN REACH, AGREES TO CALL PRN.
--- NOTE | 2020-11-17 23:54 | NUR ---
PT C/O OF LIGHTHEADNESS. GLUCOSE CHECKED 51.GAVE THE PT AN ORANGE JUICE AND AN EGG/SAUAGE SANDWICH. WILL RECHECK GLUCOSE IN 15 MINUTES.
--- NOTE | 2020-11-18 00:10 | NUR ---
RETOOK PTS GLUCOSE. READING WAS 41. PT STATES HE IS MUCH BETTER; NO LIGHT HEADEDNESS. PT A&O. PROVIDED PT WITH A JELLO. WILL RETAKE BP IN 15 MINUTES.
--- NOTE | 2020-11-18 00:56 | NUR ---
PTS GLUCOSE AT 125. PT IS A&O. PT STATES HE FEELS FINE NOW. WILL CONTINUE TO MONITOR.
--- NOTE | 2020-11-18 03:46 | NUR ---
PT RESTING IN BED, NO SIGNS OF DISTRESS NOTED, RESP EVEN AND UNLABORED. PT VOICES NO NEEDS OR COMPLAINTS AT THIS TIME. CALL LIGHT IN REACH, CONTINUE TO MONITOR.
[2020-11-18 04:00] VITALS: BP 138/79
[2020-11-18 04:53] LABS: HEMATOCRIT 30.6 % (39.0-50.0); HEMOGLOBIN 9.7 g/dl (14.0-18.0); MEAN CELL VOLUME 83.4 fL CALC (80.0-100.0); MEAN CORPUSCULAR HGB 26.4 pG CALC (26.0-32.0); MEAN CORPUSCULAR HGB CONC 31.7 g/dL CAL (32.0-36.0); RED BLOOD COUNT 3.67 mill/uL (4.70-6.10); RED CELL DISTRI WIDTH 14.1 % (11.5-15.5)
[2020-11-18 05:10] LABS: CREATININE 2.4 mg/dL (0.7-1.3); MAGNESIUM 1.7 mg/dL (1.6-2.3); POTASSIUM 4.4 mmol/l (3.5-5.1)
[2020-11-18 07:05] VITALS: BP 144/88
--- NOTE | 2020-11-18 07:05 | NUR ---
PATIENT LAYING IN BED AT THIS TIME. PATIENT DENIES ANY NEEDS. PATIENT PRESENTS WITH A BELOW THE KNEE LEFT AMPUTION FROM PAST AND IS WITHOUT ANY REDDNESS, OPEN WOUNDS. PATIENT GIVEN 2 UNITS OF HUMALOG FOR BLOOD GLUCOSE OF 163 AT THIS TIME. PATIENT DENIES ANY PAIN SIDERAILS ARE UP X 2 CALL LIGHT WITHIN REACH. TICKET MACHINE OPERATOR DONE SEE INTERVENTIONS. LUNG STOUT ARE CLEAR AT THIS TIME.
--- NOTE | 2020-11-18 12:01 | NUR ---
PATIENT SITTING UP IN BED AT THIS TIME EATING LUNCH. PAITENT DENIES ANY NEEDS AND OR PAIN SIDERAILS ARE UP X 2 CALL LIGHT IS WITHIN REACH.
[2020-11-18] MEDS ORDERED: METFORMIN500 M2 PO (12:43)
--- NOTE | 2020-11-18 13:12 | NUR ---
PATIENT D/C AT THIS TIME. PATIENT VERBALIZES UNDERSTANDING OF D/C INSTRUCTIONS AT THIS TIME.
--- NOTE | 2020-11-18 14:02 | NUR ---
Discharge instructions given. Patient verbalizes understanding of same. Discharged in stable condition via Wheelchair to Home with *Other. All belongings sent with pt.
== END 2020-11-18 14:02 | disposition home or self-care (01) ==
LOC: ED 09:40 → ED-I 13:40 → ED 13:53 → MS2 13:54
PROVIDERS: Emergency Medicine; Nurse Practitioner; ADMIT Internal Medicine; ATTEND Internal Medicine
DX: E11.65 Type 2 diabetes mellitus with hyperglycemia (principal); N17.9 Acute kidney failure, unspecified; D64.9 Anemia, unspecified; E86.0 Dehydration; T87.89 Other complications of amputation stump; L97.829 Non-pressure chronic ulcer of other part of left lower leg with unspecified severity; I12.9 Hypertensive chronic kidney disease with stage 1 through stage 4 chronic kidney disease, or unspecified chronic kidney disease; E11.22 Type 2 diabetes mellitus with diabetic chronic kidney disease; N18.9 Chronic kidney disease, unspecified; E11.40 Type 2 diabetes mellitus with diabetic neuropathy, unspecified; T38.3X6A Underdosing of insulin and oral hypoglycemic [antidiabetic] drugs, initial encounter; Y83.5 Amputation of limb(s) as the cause of abnormal reaction of the patient, or of later complication, without mention of misadventure at the time of the procedure; Z91.128 Patient's intentional underdosing of medication regimen for other reason; Z91.11 Patient's noncompliance with dietary regimen; Z89.512 Acquired absence of left leg below knee; Z53.09 Procedure and treatment not carried out because of other contraindication; Z79.4 Long term (current) use of insulin
CPT/HCPCS: G0378; J1650

== ENCOUNTER → 2020-11-17 | Day surgery (SDC) | payer MEDICARE, MEDICAID ==
[~2020-11-17] VITALS: Ht 185.4 cm; Wt 95.3 kg
[~2020-11-17] MED LIST changes: +LEVAQUIN750 M1 PO; +LIPITOR40 M1 PO; +LORTAB5 PO; +METFORMIN HCL500 M1 PO; +METFORMIN500 M2 PO; +SMZ-TMP DS1 TAB PO
[2020-11-17 08:57] VITALS: BP 152/78
--- NOTE | 2021-01-16 14:48 | NUR ---
SPOKE WITH PATIENT, STATES DOING BETTER, NO FURTHER CONCERNS AT THIS TIME WITH BKA STUMP PREVIOUSLY NOTED. STATES WILL CANCEL ANY FURTHER PROCEDURES, TESTS, VISITS. CONTINUES TO FOLLOW UP WITH PRIMARY CARE PHYSICIAN IN REGARDS TO BLOOD SUGAR PER PREVIOUS EMERGENCY ROOM VISIT. STATES WILL REQUEST REFERRAL IF NEEDED FROM PRIMARY CARE PHYSICIAN.
== END | disposition home or self-care (01) ==
LOC: ORM 08:00
PROVIDERS: ATTEND Surgery
DX: T87.89 Other complications of amputation stump (principal); E11.65 Type 2 diabetes mellitus with hyperglycemia; Y83.5 Amputation of limb(s) as the cause of abnormal reaction of the patient, or of later complication, without mention of misadventure at the time of the procedure; Z53.09 Procedure and treatment not carried out because of other contraindication; Z79.4 Long term (current) use of insulin; Z89.512 Acquired absence of left leg below knee

== ENCOUNTER 2021-01-09 12:06 | Observation (INO) | payer MEDICARE, MEDICAID ==
[~2021-01-09] VITALS: Ht 185.4 cm; Wt 97.0 kg
[2021-01-09] VITALS (7 sets, daily range): BP systolic 138–160; BP diastolic 80–95
[~2021-01-09 12:06] MED LIST changes: +METFORMIN500 M2 PO
--- NOTE | 2021-01-09 12:10 | NUR ---
PT TO ROOM # 14 FOR BEDSIDE TRIAGE
[2021-01-09 13:35] LABS: HEMATOCRIT 36.2 % (39.0-50.0); IMMATURE GRANULOCYTES 0.2 % (0.0-5.0); MEAN CELL VOLUME 85.4 fL CALC (80.0-100.0); MEAN CORPUSCULAR HGB 27.6 pG CALC (26.0-32.0); MEAN CORPUSCULAR HGB CONC 32.3 g/dL CAL (32.0-36.0); NEUT# 3.98 thou/uL (1.82-7.42); RED BLOOD COUNT 4.24 mill/uL (4.70-6.10); RED CELL DISTRI WIDTH 13.8 % (11.5-15.5)
[2021-01-09 13:36] LABS: HEMOGLOBIN 11.7 g/dl (14.0-18.0)
[2021-01-09 13:53] LABS: BILIRUBIN, TOTAL 0.5 mg/dL (0.0-1.4); CREATININE 3.1 mg/dL (0.7-1.3); POTASSIUM 4.4 mmol/l (3.5-5.1); TOTAL PROTEIN 7.3 g/dL (6.3-8.2)
[2021-01-09 13:56] LABS: ALBUMIN 3.5 g/dL (3.2-5.0)
--- NOTE | 2021-01-09 14:21 | NUR ---
PT RESTING IN BED, GIVEN A URINAL TO GET UA
[2021-01-09 14:40] LABS: URINE BILIRUBIN - DIPSTICK NEGATIVE (NEGATIVE); URINE BLOOD DIPSTICK SMALL (NEGATIVE); URINE COLOR YELLOW; URINE GLUCOSE - DIPSTICK >=1000 mg/dL (NEGATIVE); URINE KETONE NEGATIVE (NEGATIVE); URINE LEUK ESTERASE NEGATIVE (NEGATIVE); URINE PH 5.5 (4.5-8.0); URINE PROTEIN - DIPSTICK >=300 mg/dL (NEG-TRACE); URINE SPECIFIC GRAVITY 1.025; URINE UROBILINOGEN - DIPSTICK 0.2 E.U./dL (0.2)
[2021-01-09 14:43] LABS: URINE NITRITE - DIPSTICK NEGATIVE (Negative)
[2021-01-09 14:48] LABS: URINE RBC 0-2 RBC/hpf (0-5); URINE SQUAMOUS EPITHELIAL CELL RARE EPI/hpf (0-FEW)
--- NOTE | 2021-01-09 15:30 | NUR ---
PT RESTING IN BED, CALL LIGHT IN REACH
[2021-01-09 18:12] LABS: CREATININE 2.7 mg/dL (0.7-1.3); POTASSIUM 4.6 mmol/l (3.5-5.1)
--- NOTE | 2021-01-09 19:08 | NUR ---
REPORT GIVEN TO ALFRED SHEFFIELD
--- NOTE | 2021-01-09 19:45 | NUR ---
CARE ASSUMED, PT RESTING AWARE OF PLANNED ADMISSION INSULIN GTT INFUSING WITH IVF, WILL COTNINUE TO MONITOR.
--- NOTE | 2021-01-09 20:10 | NUR ---
PT TRANSFERRED TO ICU BED 5 VIA STRETCHER, ALL BELONGINGS SENT WITH PATIENT.
--- NOTE | 2021-01-09 20:11 | NUR ---
55 yr old black male admitted icu5 per stretcher from er. transferred self to bed. bed weight obtained. registered nurse cardiac telemetry shows sinus rhythm. #20 lac. ns infusing @ 125cchr, insulin gtt infusing @ 1u/hr. insulin gtt d/c'd as last blood sugar in er was 135. history obtained per pt & er record. oriented to room. fall precautions initiated.
--- NOTE | 2021-01-09 20:35 | NUR ---
lab here. blood drawn.
[2021-01-09 21:01] LABS: CREATININE 2.7 mg/dL (0.7-1.3); POTASSIUM 4.5 mmol/l (3.5-5.1)
--- NOTE | 2021-01-09 21:20 | NUR ---
lab results rec'd. dr patel called. updated on pts condition. orders rec'd.
--- NOTE | 2021-01-09 21:30 | NUR ---
supper meal given & yolie well.
[2021-01-10] VITALS (8 sets, daily range): BP systolic 135–159; BP diastolic 81–91
--- NOTE | 2021-01-10 00:01 | NUR ---
eyes closed. no distress. hall monitor shows sinus rhythm hr 66.
--- NOTE | 2021-01-10 02:00 | NUR ---
resting quietly. resps even & unlabored. no apparent distress. ivf infusing well.
--- NOTE | 2021-01-10 04:00 | NUR ---
eyes closed. no distress. compliance monitor shows sinus rhythm hr 70.
--- NOTE | 2021-01-10 05:18 | NUR ---
lab here. blood drawn.
[2021-01-10 05:47] LABS: HEMATOCRIT 34.1 % (39.0-50.0); MEAN CELL VOLUME 84.8 fL CALC (80.0-100.0); MEAN CORPUSCULAR HGB 27.4 pG CALC (26.0-32.0); MEAN CORPUSCULAR HGB CONC 32.3 g/dL CAL (32.0-36.0); RED BLOOD COUNT 4.02 mill/uL (4.70-6.10); RED CELL DISTRI WIDTH 13.7 % (11.5-15.5)
[2021-01-10 06:00] LABS: CHOLESTEROL HDL RATIO 8.2 (<4.4 (CALC)); CREATININE 2.5 mg/dL (0.7-1.3); MAGNESIUM 1.6 mg/dL (1.6-2.3); POTASSIUM 4.2 mmol/l (3.5-5.1)
[2021-01-10] MEDS ORDERED: LIPITOR40 M1 PO (09:35)
[2021-01-10] MEDS ORDERED: IBUPROFEN600 MG PO (09:36)
[2021-01-10] MEDS ORDERED: DICLOFENAC50 MG PO (09:37)
--- NOTE | 2021-01-10 09:46 | NUR ---
PT IS ALERT AND ORIENTED X 3. LUNGS CLEAR, RA. IVF AT 150 ML/HR, DOWN TO 75 ML/HR PER DOCTOR ORDER. NO DISTRESS, NO NAUSEA. L BKA.
--- NOTE | 2021-01-10 11:57 | NUR ---
PT SEEN AT REST IN THE BED, NO DISTRESS, NO COMPLAINTS. DR WALKER HAS SEEN PT, POSSIBLE DISCHARGE TO HOME TOMORROW.
--- NOTE | 2021-01-10 13:22 | NUR ---
PT RESTS IN THE BED, NO DISTRESS. PT WITH ORDERS TO TRANSFER TO MED/SURG, BUT NO BEDS AVAILABLE.
--- NOTE | 2021-01-10 19:47 | NUR ---
PT IN BED IN LOW FOWLERS POSITION WITH TV ON AND LIGHTS LOW. V/S HAVE BEEN ASSESSED. ICEWATER PROVIDED. PT ORIENTED TO ROOM, CALL SYSTEM, LIGHTS, BED AND TV. ASSESSMENT COMPLETED AT THIS TIME AND IVF STARTED PER ORDERS. DENIES ANY OTHER NEEDS AT THIS TIME.
--- NOTE | 2021-01-10 21:47 | NUR ---
PT MEDICATED ORDERS PROVIDE. ASSESSMENT HAS BEEN COMPLETED. PT TREATED FOR ELEVATED GLUCOSE PER ACCU-CHECK OF 259.
[2021-01-11 04:00] VITALS: BP 145/79
--- NOTE | 2021-01-11 05:40 | NUR ---
PT MEDICATED ORDERS PROVIDE. IVF REPLENISHED AT THIS TIME. PT REPORTS TRYING TO SLEEP, RETURNING TO SLEEP I LEAVE THE ROOM, DENIES ANY DISTRESSES OR NEEDS AT THIS TIME.
[2021-01-11 06:23] LABS: HEMATOCRIT 34.5 % (39.0-50.0); HEMOGLOBIN 11.2 g/dl (14.0-18.0); IMMATURE GRANULOCYTES 0.2 % (0.0-5.0); MEAN CELL VOLUME 85.6 fL CALC (80.0-100.0); MEAN CORPUSCULAR HGB 27.8 pG CALC (26.0-32.0); MEAN CORPUSCULAR HGB CONC 32.5 g/dL CAL (32.0-36.0); NEUT# 3.14 thou/uL (1.82-7.42); RED BLOOD COUNT 4.03 mill/uL (4.70-6.10); RED CELL DISTRI WIDTH 13.7 % (11.5-15.5)
[2021-01-11 07:06] LABS: CREATININE 2.3 mg/dL (0.7-1.3); POTASSIUM 4.5 mmol/l (3.5-5.1)
[2021-01-11 07:41] VITALS: BP 167/96
--- NOTE | 2021-01-11 07:41 | NUR ---
PT SLEEPING IN BED. AWAKENED TO COMPLETE ASSESSMENT., A&O X4. NO DISTRESS NOTED. PT DENIES ANY PAIN AT THIS TIME. CLEAR BREATH SOUNDS UPON AUSCULTATION. ACTIVE BOWEL SOUNDS X4 QUADRANTS. LT BKA AMPUTATION, RT PEDAL PULSE STRONG. NO OTHER NEEDS AT THIS TIME. ASSESSMENT COMPLETED. DISCUSSED POC. CALL LIGHT WITHIN REACH.
--- NOTE | 2021-01-11 09:44 | NUR ---
DR WALKER AND Dana DAVID APRN AT BEDSIDE DISCUSSING POC
--- NOTE | 2021-01-11 10:58 | NUR ---
PT LAYING IN BED NO DISTRESS NOTED. CALL LIGHT WITHIN REACH.
[2021-01-11] MEDS ORDERED: NOVOLOG MIX SC (11:47)
--- NOTE | 2021-01-11 14:33 | NUR ---
d/c instructions given to pt
== END 2021-01-11 14:57 | disposition home or self-care (01) ==
LOC: ED 12:06 → ED-I 15:17 → ICU 15:34 → ED 15:34 → MS2 01-10 19:15
PROVIDERS: Nurse Practitioner; ADMIT Internal Medicine; ATTEND Internal Medicine
DX: E11.65 Type 2 diabetes mellitus with hyperglycemia (principal); N17.9 Acute kidney failure, unspecified; I12.9 Hypertensive chronic kidney disease with stage 1 through stage 4 chronic kidney disease, or unspecified chronic kidney disease; E11.22 Type 2 diabetes mellitus with diabetic chronic kidney disease; N18.9 Chronic kidney disease, unspecified; E11.40 Type 2 diabetes mellitus with diabetic neuropathy, unspecified; E11.69 Type 2 diabetes mellitus with other specified complication; E78.5 Hyperlipidemia, unspecified; E87.2 Acidosis; C95.90 Leukemia, unspecified not having achieved remission; T38.3X6A Underdosing of insulin and oral hypoglycemic [antidiabetic] drugs, initial encounter; Z79.4 Long term (current) use of insulin; Z91.128 Patient's intentional underdosing of medication regimen for other reason; Z89.512 Acquired absence of left leg below knee; Z20.822 Contact with and (suspected) exposure to COVID-19
CPT/HCPCS: G0378

== ENCOUNTER 2021-04-08 12:43 | Inpatient (IN) | payer MEDICARE, MEDICAID ==
[~2021-04-08] VITALS: Ht 185.4 cm; Wt 96.0 kg
[~2021-04-08 12:43] MED LIST changes: +LIPITOR40 M1 PO
--- NOTE | 2021-04-08 12:48 | NUR ---
PT NOT IN WAITING ROOM WHEN CALLED BACK, ADVISED BY REGISTRATION PT IN BR.
--- NOTE | 2021-04-08 12:53 | NUR ---
PT TO ROOM # 6 FOR BEDSIDE TRIAGE
[2021-04-08 13:58] LABS: HEMATOCRIT 31.8 % (39.0-50.0); HEMOGLOBIN 10.2 g/dl (14.0-18.0); IMMATURE GRANULOCYTES 0.3 % (0.0-5.0); MEAN CORPUSCULAR HGB 27.3 pG CALC (26.0-32.0); MEAN CORPUSCULAR HGB CONC 32.1 g/dL CAL (32.0-36.0); NEUT# 14.6 thou/uL (1.82-7.42); RED BLOOD COUNT 3.74 mill/uL (4.70-6.10); RED CELL DISTRI WIDTH 13.4 % (11.5-15.5)
[2021-04-08 14:06] LABS: ALBUMIN 3.5 g/dL (3.2-5.0); POTASSIUM 4.4 mmol/l (3.5-5.1); TOTAL PROTEIN 8.1 g/dL (6.3-8.2)
--- NOTE | 2021-04-08 14:06 | NUR ---
OPEEN WOUND NOTED TO RIGHT GREAT TOE. PT REPORTS PAIN TO SITE X 2 WEEKS.
[2021-04-08 14:12] LABS: CREATININE 3.7 mg/dL (0.7-1.3)
[2021-04-08 16:09] LABS: URINE BILIRUBIN - DIPSTICK NEGATIVE (NEGATIVE); URINE BLOOD DIPSTICK MODERATE (NEGATIVE); URINE COLOR YELLOW; URINE GLUCOSE - DIPSTICK >=1000 mg/dL (NEGATIVE); URINE KETONE NEGATIVE (NEGATIVE); URINE LEUK ESTERASE NEGATIVE (NEGATIVE); URINE PROTEIN - DIPSTICK 100 mg/dL (NEG-TRACE); URINE SPECIFIC GRAVITY 1.025; URINE UROBILINOGEN - DIPSTICK 0.2 E.U./dL (0.2)
[2021-04-08 16:10] LABS: URINE NITRITE - DIPSTICK NEGATIVE (Negative)
[2021-04-08 16:20] LABS: URINE WBC 0-2 WBC/hpf (0-5)
--- NOTE | 2021-04-08 16:41 | NUR ---
PT REPORT CALLED TO RICHARD FOR INTENDED ROOM 272
--- NOTE | 2021-04-08 17:00 | NUR ---
PATIENT PRESENTED TO FLOOR FROM ED AT THIS TIME. PATIENT ALERT AND ORIENTED AT THIS TIME. PATIENT DOES PRESENT WITH LEFT BELOW AMPUTATION AT THIS TIME. AND HAS A RIGHT GREAT TOE THAT IS LARGE AND SCABBED OVER AND PATIENT STATES THAT HE STUBBED IT. PATIENT LUNG STOUT ARE CLEAR AND NO SIGNS OF COUGHING AT THIS TIME. PATIENT ACCU CHECK SHOW 268 AND WAS GIVNE 5 UNITS OF SLIDING SCALE INSULIN. PATIENT DENIES ANY PAIN AND IS ALERT AND ORIENTED AT THIS TIME. PATIENT HAS A TELE IN PLACE AND READING S/R HR 91. PATIENT WILL BE CONTINUED TO BE MONITORED AT THIS TIME. IP ATTORNEY DONE SEE INTERVENTIONS.
[2021-04-08 17:43] VITALS: BP 155/77
[2021-04-08 19:20] VITALS: BP 139/81
--- NOTE | 2021-04-08 19:30 | NUR ---
PATIENT RESTING IN BED WITH HOB SLIGHTLY ELEVATED AND EYES CLOSED. RESPS ARE EVEN AND UNLABORED. APPEARS SLEEPING-IVF NS PATENT AND INFUSING AT 75CC/HR. VIA LAC SITE. CALL LIGHT IN REACH. WILL CONT TO MONITOR.
--- NOTE | 2021-04-08 21:31 | NUR ---
PATIENT RESTING IN BED AT THIS TIME WATCHING TV. AWAKE ALERT AND ORIENTEDX3. PATIENT WITH TELE MONITOR IN PLACE WITH THE LAST READING BEING SR-85. IV SITE TO LAC INTACT WITH IVF PATENT AND INFUSING AT 75CC/HR. SITE REMAINS HEALTHY AT THIS TIME. ACCU-CHECK WAS 263-COVERED WITH 5UNITS OF HUMALOG PER SLIDING SCALE COVERAGE PROTOCOL. PROVIDED WITH HS SNACK. RIGHT GRFEAT TOE IS INFLAMMED AND SWOLLEN-DRY NO DRAINAGE AT THIS TIME. ENCOURAGED PATIENT TO ELEVATE FOOT ON PILLOWS. SAFETY PRECAUTIONS REINFORCED. CALL LIGHT IN REACH. WILL CONT TO MONTIOR.
--- NOTE | 2021-04-08 23:56 | NUR ---
PATIENT RESTING IN BED AT THIS TIME WITH EYES CLOSED. RESPS ARE EVEN AND UNLABORED. IVF NS PATENT AND INFUSING VIA LAC SITE AT 75CC/HR. TELE MONITOR IN PLACE. CALL LIGHT IN REACH. WILL CONT TO MONITOR.
[2021-04-09] VITALS: BP 145/70
[2021-04-09 04:00] VITALS: BP 157/74
--- NOTE | 2021-04-09 04:15 | NUR ---
PATIENT RESTING IN BED WITH EYES CLOSED AT THIS TIME. TELE MONITOR IN PLACE-LAST READING SR-71. IVF NS PATENT AND INFUSING AT 75CC/HR. RESPS ARE EVEN AND UNLABORED. CALL LIGHT IN REACH. WILL CONT TO MONITOR.
[2021-04-09 04:51] LABS: HEMOGLOBIN 9.7 g/dl (14.0-18.0); IMMATURE GRANULOCYTES 0.2 % (0.0-5.0); MEAN CELL VOLUME 82.6 fL CALC (80.0-100.0); MEAN CORPUSCULAR HGB 26.7 pG CALC (26.0-32.0); MEAN CORPUSCULAR HGB CONC 32.3 g/dL CAL (32.0-36.0); NEUT# 9.62 thou/uL (1.82-7.42); RED BLOOD COUNT 3.63 mill/uL (4.70-6.10); RED CELL DISTRI WIDTH 13.4 % (11.5-15.5)
[2021-04-09 05:11] LABS: ALBUMIN 2.8 g/dL (3.2-5.0); BILIRUBIN, TOTAL 0.8 mg/dL (0.0-1.4); CREATININE 3.3 mg/dL (0.7-1.3); POTASSIUM 4.1 mmol/l (3.5-5.1); TOTAL PROTEIN 6.8 g/dL (6.3-8.2)
--- NOTE | 2021-04-09 06:16 | NUR ---
PATIENT RESTING IN BED AT THIS TIME-REFUSED HEPARIN AT THIS TIME. CALL LIGHT IN REACH. WILL CONT TO MONITOR.
[2021-04-09 07:41] VITALS: BP 119/60
--- NOTE | 2021-04-09 07:54 | NUR ---
SIHFT CHANGE REPORT, PT SLEEPING BUT AROUSES TO VERBAL STIMULI, ORIENTED, DEMIES DISCOMFORT, TELE MONITOR IN PLACE, IVF 0.9 NS INFUSING @ 75CC/HR TO SITE IN LAC, RIGHT GREAT TOE SWOLEN WITH SCANT AMOUNT CLEAR DRAINAGE, NEEDS ADDRESSED, CALL MILLER IN REACH AND BED LOCKED IN LOWEST POSITION.
--- NOTE | 2021-04-09 10:16 | NUR ---
MD ROUNDED AND DISCUSSED PLAN OF CARE, PT STATED UNDERSTANDING BUT APPEARS TO NEED MOTIVATION AND REINFORCEMENT.
--- NOTE | 2021-04-09 10:20 | NUR ---
PT PRESENTS WITH SEPSIS SECONDARY TO SOFT TISSUE INFECTION. VANCOMYCIN ORDERED FOR PHARMACY TO DOSE. ALL MEDS IT PTS CHART REVIEWED. CRCL = 32.8 ML/MIN HT = 73 IN WT = 94 KG WBC = 12.9 THOUS/UL TEMP = 98.4 F BLOOD CX PENDING. PT IS ALSO ON ZOSYN 2.25G IV Q6H. START VANCOMYCIN 1G IV Q24H. TROUGH TO BE DRAWN 04/11 @ 1430. GOAL TROUGH IS 15-20 MCG/ML. PHARMACY WILL CONTINUE TO FOLLOW.
[2021-04-09 10:58] VITALS: BP 147/85
--- NOTE | 2021-04-09 11:58 | NUR ---
PICC LINE FLUSHED AND REMOVED, PRESSURE DRESSING APPLIED FOR 6 MINS WITH ARM ELEVATED OVER HEAD, PT THEN GOT UP AND WENT TO BR, CALLED SHORTLY AFTER REPORTING BLEEDING, ON OBSERVATION BLOOD PACKET SEEN UNDER TRANSPARENT DRESSING, PT WAS PLACED BACK IN BED, ICE AND PRESSURE APPLIED 12 MINS, ICE REMOVED, PRESSURE DRESSING APPLIED, WILL CONTINUE TO MONITOR AND RECHECK BEFORE PT LEAVES FOR HOME.
--- NOTE | 2021-04-09 13:08 | NUR ---
RESTING IN BED, DENIES DISCOMFORT, ALL NEEDS ADDRESSED.
--- NOTE | 2021-04-09 14:56 | NUR ---
PT REFUSED SQ HEPARIN AT THIS TIME, EDUCATED ON REASON FOR ORDER AND RISK OF DEVELOPING EMBOLI DUE TO HIS MEDICAL CONDITION AND LIMITED MOBILITY BUT STATED HE KNOWS AND DOES NOT WANT MED.
[2021-04-09 15:43] VITALS: BP 150/89
--- NOTE | 2021-04-09 16:40 | NUR ---
RESTING IN BED, SLEEPING, NO SIGN DISCOMFORT, BREATHING EVEN AND NON-LABORED, WILL CONTINUE TO MONITOR.
[2021-04-09 19:00] VITALS: BP 154/86
--- NOTE | 2021-04-09 19:38 | NUR ---
PATIENT ALERT AND ORIENTED. ABLE TO MAKE NEEDS KNOWN. DENIES ANY PAIN OR DISCOMFORT AT THIS TIME. DRESSING INTACT TO RIGHT GREAT TOE. CALL LIGHT AND BELONGINGS REMAIN IN REACH.
[2021-04-10] VITALS: BP 154/83
--- NOTE | 2021-04-10 01:30 | NUR ---
NEW IV SITE TO RIGHT HAND. PREVIOUS IV OBSERVED LEAKING. PATIENT TOLERATED WELL.
[2021-04-10 04:00] VITALS: BP 142/76
[2021-04-10 04:51] LABS: HEMATOCRIT 29.4 % (39.0-50.0); HEMOGLOBIN 9.6 g/dl (14.0-18.0); IMMATURE GRANULOCYTES 0.2 % (0.0-5.0); MEAN CELL VOLUME 82.6 fL CALC (80.0-100.0); MEAN CORPUSCULAR HGB CONC 32.7 g/dL CAL (32.0-36.0); NEUT# 8.88 thou/uL (1.82-7.42); RED BLOOD COUNT 3.56 mill/uL (4.70-6.10); RED CELL DISTRI WIDTH 13.3 % (11.5-15.5)
[2021-04-10 05:05] LABS: MAGNESIUM 1.6 mg/dL (1.6-2.3); POTASSIUM 4.1 mmol/l (3.5-5.1)
--- NOTE | 2021-04-10 05:19 | NUR ---
PATIENT RESTING IN HIS BED, TURNED HIMSELF OVER TO HIS RIGHT SIDE. NO COMPLAINTS VOICED AT THIS TIME. CALL LIGHT AND BELONGINGS REMAIN IN REACH.
[2021-04-10 07:53] VITALS: BP 150/95
--- NOTE | 2021-04-10 08:00 | NUR ---
PT IS AWAKE IN SEMI HU POSITION IN BED. A&O X3, IV #24G RIGHT HAND WITH NS INFUSING AT 75 ML/HR NO SIGN OF INFILTRATION/ LEAKAGE. PT HAS A LEFT LEG AMPUTATION WITH THE RIGHT LEG BIG TOE INFECTION DRESSING CDI. TELE ON PT SHOWING SINUS RYTHMN. PT DENIES HAVING PAIN. ASSESSMENT COMPLETED: LUNG SOUNDS CLEAR UPPER AND LOWER LOBES, BOWEL SOUNDS ARE ACTIVE ALL 4 QUADRANTS. PT STATES HAVING BOWEL MOVEMENT YESTERDAY. CALL LIGHT WITHIN REACH.
--- NOTE | 2021-04-10 10:15 | NUR ---
DR NETTLES AND Dana DAVID APRN AT BEDSIDE DISCUSSING POC
[2021-04-10 11:02] VITALS: BP 162/95
--- NOTE | 2021-04-10 12:00 | NUR ---
PT LAYING IN BED WATCHING TV. DENIES ANY PAIN. IV SITE IS PATENT SHOWS NO SIGN OF INFILTRATION. TELE MONITOR IN PLACE. PT IS ENCOURAGED TO USE CALL LIGHT. CALL LIGHT WITHIN REACH. DRESSING CDI NO SIGN OF SATURATION.
--- NOTE | 2021-04-10 15:03 | NUR ---
PT TAKEN VIA WC IN STABLE CONDITION ACCOMPANIED BY E NOTT IMMERSION METAL CLEANER TO MRI.
--- NOTE | 2021-04-10 15:32 | NUR ---
PT BIG RIGHT TOE APPEARS RED/CALLUSED. WOUND CULTURE OBTAINED AT 1436. PT DENIES PAIN, TOLERATED WELL. CALL LIGHT WITHIN REACH.
--- NOTE | 2021-04-10 18:50 | NUR ---
RT TOE WOUND CLEANSED AND DRIED. DRY DRESSING APPLIED WITH TELFA FOR PROTECTION. NO OTHER NEEDS AT THIS TIME. CALL LIGHT WITHIN REACH.
[2021-04-10 19:00] VITALS: BP 143/79
--- NOTE | 2021-04-10 19:30 | NUR ---
REPORT RECEIVED FROM William BAZAN RN
[2021-04-11] VITALS (7 sets, daily range): BP systolic 138–185; BP diastolic 72–92
--- NOTE | 2021-04-11 00:15 | NUR ---
REPORT RECEIVED FROM ROMAN SHEFFIELD
--- NOTE | 2021-04-11 00:22 | NUR ---
PATIENT ARRIVED VIA STRETCHER ACCOMPANIED BY Ely CONTE LPN
--- NOTE | 2021-04-11 00:30 | NUR ---
PATIENT RESTING COMFORTABLY, NO APPARENT DISTRESS AT THIS TIME
--- NOTE | 2021-04-11 04:39 | NUR ---
ALERT AND ORIENTED X3. NORMAL HEART SOUNDS, SR ON TELEMETRY. CLEAR LUNG SOUNDS. PT HAS A #24 IN THE RIGHT HAND INFUSING PER EMAR.. IV FLUSHED AND PATENT. PLAN OF CARE REVIEWED, CALL LIGHT AND BEDSIDE TABLE WITHIN REACH.
[2021-04-11 05:23] LABS: HEMATOCRIT 30.1 % (39.0-50.0); MEAN CORPUSCULAR HGB 27.2 pG CALC (26.0-32.0); MEAN CORPUSCULAR HGB CONC 33.2 g/dL CAL (32.0-36.0); RED BLOOD COUNT 3.67 mill/uL (4.70-6.10); RED CELL DISTRI WIDTH 13.2 % (11.5-15.5)
[2021-04-11 05:42] LABS: CREATININE 3.2 mg/dL (0.7-1.3); MAGNESIUM 1.6 mg/dL (1.6-2.3); POTASSIUM 4.4 mmol/l (3.5-5.1)
--- NOTE | 2021-04-11 05:51 | NUR ---
ANTIBIOTIC PAUSED AT THIS TIME. IC ACCESS OCCLUDED.
--- NOTE | 2021-04-11 06:06 | NUR ---
ANTIBIOTICS RESTARTED. NEW IV #22 IN RIGHT WRIST.
--- NOTE | 2021-04-11 07:05 | NUR ---
PATIENT LAYING IN BED AT THIS TIME. ALERT AND ORIENTED X [address] DR[address] JENKINS IN TO SEE PATIENT AND TOLD PATIENT THAT HE WILL BE GOING TO SURGERY SATURDAY OR SATURDAY. PATIENT RADHA ANY PAIN FUR CLEANER DONE SEE INTERVENITON TOE DRESSED AND DRY.
--- NOTE | 2021-04-11 07:45 | NUR ---
PT CARE RESUMED; REPORT REC FROM Jame ROLON RN
--- NOTE | 2021-04-11 10:23 | NUR ---
DR NETTLES AND Dana DAVID APRN AT BEDSIDE DISCUSSING POC
--- NOTE | 2021-04-11 11:17 | NUR ---
PT LAYING IN BED. NO DISTRESS NOTED. NO PAIN REPORTED AT THIS TIME. CALL LIGHT WITHIN REACH.
--- NOTE | 2021-04-11 14:45 | NUR ---
LAB AT BEDSIDE OBTAINING VANCOTROUGH SAMPLE
--- NOTE | 2021-04-11 15:26 | NUR ---
PER Dana DAVID APRN AND Alexei AMOR APRN HEPARIN TO BE HELD IN AM. TONIGHTS DOSE OKAY TO BE ADMINISTERED; MORNING DOSE TO BE HELD; MEDICATION MARKED NOT GIVEN FOR TOMORROW'S 6 AM DOSE.
--- NOTE | 2021-04-11 16:26 | NUR ---
S: GABRIELA BELTRAN is a 55 M who presents with CELLULITIS. He has a history of SEPSIS. All medications in patient's chart were reviewed. O: VS: BP 157/81, P 97, RR 18,T 98.1 W 96kg, HT 73IN, Scr= 3.2, A: Blood culture <is pending WOUND culture <is pending P: Patient is on CEFEPIME 2GRAMS Q12H. Vancomycin ordered for pharmacy to dose. CONTINUE Vancomycin 1000MG IV Q24H. Vancomycin trough is drawn before the 4th dose on 04/14/21 @1430 TROUGH ON 04/11/21 IS 13 GIVEN THE PATIENTS UNSTABLE SCR WE WILL CONTINUE CURRENT DOSE Vancomycin goal trough is between <15-20 mcg/ml>. Pharmacy will follow and or advise on antibiotics use as needed. EZE NICHOLED
--- NOTE | 2021-04-11 17:46 | NUR ---
PT LAYING IN BED. NO NEEDS OR PAIN REPORTED AT THIS TIME. CALL LIGHT WITHIN REACH.
--- NOTE | 2021-04-11 18:55 | NUR ---
REPORT RECEIVED FROM William BAZAN RN.
--- NOTE | 2021-04-11 19:04 | NUR ---
REPORT GIVEN TO Jame LOUIE RN ; EXPLAINED TO HOLD MORNING DOSE OF HEPARIN PER RADIO PROGRAM CHECKER INSTRUCTIONS
--- NOTE | 2021-04-11 19:15 | NUR ---
ALERT AND ORIENTED X3. NORMAL HEART SOUNDS, SR ON TELEMETRY. CLEAR LUNG SOUNDS. PT HAS A #24 IN THE RIGHT HAND INFUSING PER EMAR.. IV FLUSHED AND PATENT. PT HAS A LEFT BELOW THE KNEE AMPUTATION. 6 AM HEPARING IS TO BE HELD PENDING A PICC LINE INSERTION TOMORROW. PLAN OF CARE REVIEWED, CALL LIGHT AND BEDSIDE TABLE WITHIN REACH.
--- NOTE | 2021-04-11 19:20 | NUR ---
ER NOTIFIED WRITTER, PATIENT CURRENTLY OFF TELEMETRY, PATIENT UP TO SHOWER AT THIS TIME. WILL REPLACE WHEN DONE.
--- NOTE | 2021-04-11 20:17 | NUR ---
PATIENT NOTIFIED WRITTER HE IS OUT OF THE SHOWER, PT RECONNECTED TO CONTINOUS IVF
--- NOTE | 2021-04-11 23:30 | NUR ---
PATIENT COMPLAINING OF NAUSEA, ASKED PATIENT IF HE WOULD LIKE ME TO CALL DR AND HAVE SOMETHING ORDERED, PT STATES IT IS NOT "THAT BAD" AND HE CAN DEAL WITH IT. REMINDED PT TO LET ME KNOW IF IT WAS NOT GETTING BETTER OR IF IT WAS WORSENING. CALL LIGHT AND BEDSIDE TABLE WITHIN REACH.
[2021-04-12] VITALS (7 sets, daily range): BP systolic 112–179; BP diastolic 65–80
--- NOTE | 2021-04-12 04:08 | NUR ---
PATIENT SLEEPING SOUNDLY, AWOKEN BY WRITTER. DENIES ANY CURRENT NEEDS AT THIS TIME. DENIES ANY MORE NAUSEA. CALL LIGHT AND BEDSIDE TABLE WITHIN REACH.
[2021-04-12 05:11] LABS: HEMATOCRIT 30.9 % (39.0-50.0); HEMOGLOBIN 9.8 g/dl (14.0-18.0); MEAN CELL VOLUME 85.4 fL CALC (80.0-100.0); MEAN CORPUSCULAR HGB 27.1 pG CALC (26.0-32.0); MEAN CORPUSCULAR HGB CONC 31.7 g/dL CAL (32.0-36.0); RED BLOOD COUNT 3.62 mill/uL (4.70-6.10); RED CELL DISTRI WIDTH 13.3 % (11.5-15.5)
[2021-04-12 05:28] LABS: CREATININE 3.1 mg/dL (0.7-1.3); POTASSIUM 4.6 mmol/l (3.5-5.1)
[2021-04-12 06:50] LABS: PROTHROMBIN TIME 10.5 SECONDS (9.0-12.5)
--- NOTE | 2021-04-12 07:33 | NUR ---
REPORT RECEIVED FROM NETTIE TAYLOR. PT RESTING IN BED SEMI FOWLERS LEANING TO RIGHT SIDE; ALERT AND ORIENTED X 4. DENIES PAIN; C/O NAUSEA SINCE YESTERDAY. RESPIRATIONS EVEN AND UNLABORED ON ROOM AIR. RIGHT GREAT TOE IS SWOLLEN AND RED WITH SCANT BLOOD DRAINAGE TO DISTAL END; UNABLE TO PALPATE PEDAL PULSE; AUSCULTATED WITH DOPPLER; CAP REFILL <3; PT DOES NOT HAVE PAIN WHEN TOUCHING FOOT AND TOE. IV FLUIDS INFUSING WITHOUT DIFFICULTY; IV SITE APPEARS HEALTHY. POC REVIEWED INCLUDING PLAN FOR PICC LINE PLACEMENT TODAY; PT ENCOURAGED TO VERBALIZE CONCERNS. STATES UNDERSTANDING. SAFETY MEASURES IN PLACE. CALL LIGHT WITHIN REACH.
--- NOTE | 2021-04-12 09:00 | NUR ---
OFF UNIT VIA WHEELCHAIR FOR SCHEDULED PICC LINE PLACEMENT.
--- NOTE | 2021-04-12 10:05 | NUR ---
PT RETURNED TO ROOM AT 0941; NOW HAS SINGLE LUMEN KEN PICC LINE. DR. NETTLES AND NEPTALI MONIQUE AT BEDSIDE. NEW ORDERS FOR BLOOD CULTURES X 2. FIRST SET DRAWN FROM PICC LINE AT THIS TIME; PICC LINE HAS GOOD BLOOD RETURN AND FLUSHES WELL. DRESSING HAS BLOODY DRAINAGE.
--- NOTE | 2021-04-12 11:23 | NUR ---
CENTRAL LINE DRESSING CHANGED DUE TO MODERATE AMOUNT OF BLOODY DRAINAGE. ZOFRAN GIVEN FOR NAUSEA. NO OTHER REQUESTS AT THIS TIME. CALL LIGHT WITHIN REACH.
--- NOTE | 2021-04-12 14:54 | NUR ---
DR. KWOK AT VIRTUAL BEDSIDE FOR ID CONSULT.
--- NOTE | 2021-04-12 15:39 | NUR ---
RETURNED TO ROOM AT 1521 IN STABLE CONDITION. PT STOOD AND AMBULATED SHORT DISTANCE TO BED. BEDSIDE REPORT RECEIVED FROM OR NURSE. 3 LAP SITES TO ABDOMEN WELL APPROXIMATED WITH DERMABOND. VSS. SCD'S APPLIED TO BLE; INCENTIVE SPIROMETER PROVIDED AND EDUCATED PT ON USE; RETURN DEMONSTRATION. DENIES PAIN CURRENTLY. REQUESTING WATER AND JELLO. LLE SHACKED TO BED; GUARDS AGAIN AT BEDSIDE.
--- NOTE | 2021-04-12 20:00 | NUR ---
PT RESTING IN BED WATCHING TV, NO SIGNS OF DISTRESS NOTED, RESP EVEN AND UNLABORED. PT ALERT AND ORIENTED X3, PT LBKA, NOTED WARM TO TOUCH TO R FOOT, GREAT TOE, OPEN TO AIR, NO DRAINAGE NOTED AT THIS TIME. DISCUSSED POC, PT MEDICATED PER MAR, ASSESSEMENT COMPLETED, CALL LIGHT IN REACH,CONTINUE TO MONITOR.
[2021-04-13] VITALS (13 sets, daily range): BP systolic 146–190; BP diastolic 72–97
--- NOTE | 2021-04-13 | NUR ---
PT RESTING IN BED WITH EYES CLOSED, NO SIGNS OF DISTRESS NOTED, RESP EVEN AND UNLABORED. CALL LIGHT IN REACH,CONTINUE TO MONITOR.
--- NOTE | 2021-04-13 04:00 | NUR ---
PT RESTING IN BED, NO SIGNS OF DISTRESS NOTED, RESP EVEN AND UNLABORED. PT VOICES NO NEEDS OR COMPLAINTS AT THIS TIME. CALL LIGHT IN REACH,CONTINUE TO MONITOR.
--- NOTE | 2021-04-13 05:57 | NUR ---
RECEIVED CALL FROM DR. NOLEN,VERBAL ORDERS TO MAKE PT NPO, PLANS FOR SURGERY AT NOON. DISCUSSED WITH PT, CALL LIGHT IN REACH,CONTINUE TO MONITOR.
[2021-04-13 06:03] LABS: HEMATOCRIT 28.7 % (39.0-50.0); HEMOGLOBIN 9.4 g/dl (14.0-18.0); MEAN CELL VOLUME 82.7 fL CALC (80.0-100.0); MEAN CORPUSCULAR HGB 27.1 pG CALC (26.0-32.0); MEAN CORPUSCULAR HGB CONC 32.8 g/dL CAL (32.0-36.0); RED BLOOD COUNT 3.47 mill/uL (4.70-6.10); RED CELL DISTRI WIDTH 13.4 % (11.5-15.5)
[2021-04-13 06:06] LABS: MAGNESIUM 1.6 mg/dL (1.6-2.3); POTASSIUM 4.3 mmol/l (3.5-5.1)
--- NOTE | 2021-04-13 08:00 | NUR ---
PT SLEEPING UPON ENTERING ROOM. PT STATES THEY DONT REPORT PAIN. IV SITE IS INTACT NO SIGN OF LEAKING/ INFILTRATION. PT IS A&O X3, LUNG SOUNDS ARE CLEAR UPPER/LOWER LOBES. BOWEL SOUNDS ARE ACTIVE X4. RIGHT BIG TOE IS CRUSTED AND CALLUSED. PT HAS SURGERY TODAY AT 1200. CALL LIGHT IS WITHIN REACH.
--- NOTE | 2021-04-13 09:37 | NUR ---
PHOTO OF RT BIG TOE WOUND OBTAINED; SEE CHART FOR PHOTO
--- NOTE | 2021-04-13 10:35 | NUR ---
DR. NETTLES AND NEPTALI PEREZ IN PT ROOM DISCUSSING POC.
--- NOTE | 2021-04-13 11:04 | NUR ---
PT TAKEN VIA STRECTHER ACCOMPANIED BY Benny ARMAS RN AND Ha PORTILLO RN TO THE OR FOR SCHEDULED PROCEDURE WITH DR JENKINS IN STABLE CONDITION.
--- NOTE | 2021-04-13 12:00 | NUR ---
AFTER PHONE CONVERSATION WITH ELSIE GUNDERSON; PICC LINE NOT TO BE USED IN KEN; NEW PICC LINE TO BE PLACED TOMORROW; HEPARIN TO BE HELD TONIGHT.
--- NOTE | 2021-04-13 12:20 | NUR ---
PT SLEEPING UPON ENTERING ROOM. REPORTS NO PAIN AT THIS TIME STATES HAD A RESTFUL SLEEP. ASSESSMENT WAS PERFORMED AT THIS TIME. A&o X3 LUNG SOUNDS ARE CLEAR UPON AUSCULATION UPPER/LOWER LOBES. HEART SOUNDS ARE REGULAR, TELE MONITOR IN PLACE. BOWEL SOUNDS ARE ACTIVE X4 QUADRANTS. RADIAL PULSES ARE STRONG, RIGHT PEDIAL PULSE WEAK. HAS A SURGERY SCHEDULED WITH DR. JENKINS AT 1200. IS NPO AT THIS TIME. PT HAS SINGLE LUMEN PICCLINE IN KEN INFUSING NS @ 75. CALL LIGHT WITHIN REACH.
--- NOTE | 2021-04-13 12:28 | NUR ---
PT STILL IN SURGERY AT THIS TIME.
--- NOTE | 2021-04-13 14:20 | NUR ---
PT ARRIVED VIA STRETCHER ACCOMPANIED BY Kaden AGUIRRE RN AND Sushma HARDING RN. PT DROWSY BUT ABLE TO OPEN EYES WHEN SPOKEN TO. ABLE TO MOVE TO BED. NEW IV SITE TO LT WRIST; PER TRANSMISSION SPECIALIST ORDERS DO NOT USE KEN PICC LINE; PICC LINE TO BE CHANGED TOMORROW. AMPUTATION TO RT BIG TOE; DRESSING CDI. BED ALARM IN PLACE FOR SAFETY. LEG ELEVATED ON PILLOW. CALL LIGHT WITHIN REACH.
--- NOTE | 2021-04-13 16:00 | NUR ---
PT HEPARIN WAS HELD PER ORDERS. PICC LINE CAN NOT BE USED DUE TO IT BEING COMPRIMISED. WRAPPED PT ARM WITH COBAN. PT RESTING IN BED IV INFUSING NS @75ML/HR. NO PAIN REPORTED AT THIS TIME. PT IS ABLE TO TOLERATE FOOD, REPORTS NO NAUSEA OR VOMITING. CALL LIGHT WITHIN REACH
--- NOTE | 2021-04-13 16:05 | NUR ---
FACILITY PROTOCOL FOLLOWED REGARDING ACTIVE CODE BROWN ABDON MALAVE; PT TRANSFERRED IN BED TO SAFETY UNTIL CODE WAS CLEARED; PT TRANSFERRED BACK TO ROOM IN STABLE CONDITION AFTER CLEARANCE
--- NOTE | 2021-04-13 17:12 | NUR ---
FUNGAL CULTURE AND ASB CULTURE NOT REC PER RICO IN LAB. THIS CLIENT RELATIONSHIP MANAGER DID NOT OBTAIN ORDERS FOR THESE CULTURES PATIENT WAS DOWN IN THE OR; PER RICO OTHER SAMPLES OBTAINED; RICO TRYING TO GET AHOLD OF THE OR; UNSUCCESSFUL; PER RICO SHE WILL CANCEL THE ORDERS DUE TO NOT OBTAINING CULTURES FROM OR
--- NOTE | 2021-04-13 19:00 | NUR ---
PT RESTING IN BED, NO SIGNS OF DISTRESS NOTED, RESP EVEN AND UNLABORED. PT DENIES ANY PAIN OR NEEDS AT THIS TIME. DISCUSSED POC, PT IS TO BE NWB TO RLE, PT VERBALIZED UNDERSTANDING. STATES HE WILL CALL IF HE NEEDS TO GE UP. DRESSING TO RLE CDI, ELEVATED ON PILLOW. TOES ARE WARM TO TOUCH, CAPILLARY REFILL BRISK. IVF TO PIV TO LW. PICC LINE SECURED WITH DRESSING UNTIL PROCEDURE IN AM. ASSESSMENT COMPLETED, CALL LIGHT IN REACH,CONTINUE TO MONITOR.
--- NOTE | 2021-04-13 23:37 | NUR ---
PT RESTING IN BED WITH EYES CLOSED, NO SIGNS OF DISTRESS NOTED, RESP EVEN AND UNLABORED. CALL LIGHT IN REACH,CONTINUE TO MONITOR.
[2021-04-14] VITALS: BP 171/85
[2021-04-14 04:00] VITALS: BP 165/79
--- NOTE | 2021-04-14 05:13 | NUR ---
PT RESTING IN BED, NO SIGNS OF DISTRESS NOTED, RESP EVEN AND UNLABORED. NEW IV BAG OF FLUIDS HUNG, PT VOICES NO NEEDS OR COMPLAINTS AT THIS TIME,CALL LIGHT IN REACH,CONTINUE TO MONITOR.
[2021-04-14 07:05] VITALS: BP 155/79
--- NOTE | 2021-04-14 07:10 | NUR ---
PATIENT RESTING IN BED AT THIS TIME. PATIENT DENIES ANY PAIN. RIGHT TOE BANDAGE IN PLACE AND DRY. DR. BRANDON IN TO SEE PATIENT AT THIS TIME. ROOMING HOUSE KEEPER DONE PATIENT HAS RUPPER ARM PICC NOT BEING USED AT THIS TIME. PATIENT HAS IV IN LWRIST #22 MAINTAINING AT THIS TIME. SIDERAILS ARE UP CALL LIGHT WITHIN REACH ROOMING HOUSE KEEPER DONE SEE INTERVENTIONS.
[2021-04-14 11:00] VITALS: BP 199/98
--- NOTE | 2021-04-14 11:46 | NUR ---
PATIENT LAYING IN BED AT THIS TIME. PATIENT DENIES ANY PAIN AT THIS TIME. TELE MONITOR IN PLACE AND BEING MONITORED BY ED. SIDERAILS ARE UP CALL LIGHT WITHIN REACH.
--- NOTE | 2021-04-14 15:44 | NUR ---
PATIENT LAYING IN BED AT THIS TIME RIGHT TOE DRESSING INTACT AND DRY. PATIENT HAS RIGHT UPPER ARM PICC LINE SINGLE LUMEN AND HAS CONTINUOUS IV FLUIDS RUNNING WITHOUT ANY ISSUES. SIDERAILS ARE UP CALL LIGHT IS WITHIN REACH. PATIENT RADHA ANY PAIN.
[2021-04-14 19:46] VITALS: BP 161/96
--- NOTE | 2021-04-14 21:08 | NUR ---
PT SITTING ON SIDE OF BED, PT STATES HE HAD A BM, PT AMBULATED WITH PROTHESIS AND WALKER TOLERATED WELL. DRESSING TO R FOOT CDI. DISCUSSED POC, ENCOURAGED ELEVATION WHILE IN BED. RESP EVEN AND UNLABORED. ASSESSMENT COMPLETED PT MEDICATED PER AUG. VOICES NO NEEDS OR COMPLAINTS AT THIS TIME. CALL LIGHT IN REACH, CONTINUE TO MONITOR.
[2021-04-14 23:59] VITALS: BP 156/82
--- NOTE | 2021-04-15 | NUR ---
PT RESTING IN BED WITH EYES CLOSED, NO SIGNS OF DISTRESS NOTED, RESP EVEN AND UNLABORED. CALL LIGHT IN REACH,CONTINUE TO MONITOR.
[2021-04-15 04:00] VITALS: BP 133/70
--- NOTE | 2021-04-15 04:30 | NUR ---
PT RESTING IN BED, DISCUSSED LAB DRAW FROM PICC LINE PT AGREED. LABS OBTAINED, PT TOLERATED WELL. VOICES NO NEEDS OR COMPLAINTS AT THIS TIME. CALL LIGHT IN REACH,CONTINUE TO MONITOR.
[2021-04-15 05:22] LABS: HEMATOCRIT 28.6 % (39.0-50.0); HEMOGLOBIN 8.9 g/dl (14.0-18.0); IMMATURE GRANULOCYTES 1.5 % (0.0-5.0); MEAN CELL VOLUME 85.1 fL CALC (80.0-100.0); MEAN CORPUSCULAR HGB 26.5 pG CALC (26.0-32.0); MEAN CORPUSCULAR HGB CONC 31.1 g/dL CAL (32.0-36.0); NEUT# 5.34 thou/uL (1.82-7.42); RED BLOOD COUNT 3.36 mill/uL (4.70-6.10); RED CELL DISTRI WIDTH 13.5 % (11.5-15.5)
[2021-04-15 05:47] LABS: ALBUMIN 2.5 g/dL (3.2-5.0); C-REACTIVE PROTEIN 2.4 mg/dL (0-0.9); CREATININE 2.6 mg/dL (0.7-1.3); POTASSIUM 4.1 mmol/l (3.5-5.1); TOTAL PROTEIN 6.5 g/dL (6.3-8.2)
[2021-04-15 06:00] LABS: BILIRUBIN, TOTAL 0.3 mg/dL (0.0-1.4)
[2021-04-15 07:39] VITALS: BP 156/90
--- NOTE | 2021-04-15 08:00 | NUR ---
PATIENT IS RESTING IN BED. ASSESSMENT DONE. PATIENT IS ALERT AND ORIENT X3. PATIENT DENIES PAIN. RESPS EVEN AND UNLABORED. TELE IN PLACE. RIGHT FOOT DRESSING CDI. PATIENT DENIES NEEDS. CALL LIGHT IN REACH.
[2021-04-15 11:09] VITALS: BP 182/94
--- NOTE | 2021-04-15 11:37 | NUR ---
MEDICATED PATIENT WITH APRESOLINE FOR BP 182/94. PATIENT DENIES PAIN AT THIS TIME OR NEEDS. CALL LIGHT IN REACH.
[2021-04-15 13:06] VITALS: BP 173/91
[2021-04-15 14:30] VITALS: BP 166/89
--- NOTE | 2021-04-15 14:38 | NUR ---
S: Patient states that R foot is not hurting today. Patient states that he will see the surgeon hopefully next week after he gets discharge from the hospital. O: Patient did the following: Patient did B LE AROM exercises doing hip flexion, hip adduction, hip abduction, knee extension, hamstring curls, and ankle pumps for 2 x 15 reps each routine with occasional verbal and tactile cuing to help decrease trick movements and fall risks. Patient also did log rolling supine to sitting bed mobility ADLs with SBA x 1. Patient was instructed on proper gait pattern with use of L prosthesis and NWB on the R LE while utilizing the RW for support. A: Patient exhibiting improving bed mobility and transfer ADLs, very careful not to drag the R LE on the bed. Patient also carries out his exercise protocol with occasional verbal and tactile cuing. Patient continues to struggle with maintaining NWB on the R LE when walking with L prosthesis and using the RW (originally uses the crutches). P: Patient to continue with present POC, emphasis on proper gait pattern with NWB on the R LE while using the RW and L prosthesis. Patient Am Pac score of 12 points, discharge recommendation would be extended care facility placement and I agree with this recommendation.
--- NOTE | 2021-04-15 15:00 | NUR ---
PATIENT IS RESTING IN BED WITH NO DISTRESS NOTED. PATIENT DENIES PAIN. TELE IN PLACE. CALL LIGHT IN REACH.
--- NOTE | 2021-04-15 18:50 | NUR ---
REPORT RECEIVED FROM Benny HOLLINS RN
[2021-04-15 19:30] VITALS: BP 139/75
--- NOTE | 2021-04-15 20:30 | NUR ---
ALERT ORIENTED X3. NORMAL HEART SOUNDS, LAST TELEMETRY READING SR 72. CLEAR LUNG SOUNDS BILATERALLY, ACTIVE BOWEL SOUNDS, LAST REPORTED BOWEL MOVEMENT TODAY 04/15. SINGLE LUMEN PICC LOCATED ON RIGHT ARM ABOVE AC, SALINE LOCKED. CDI NOTED TO RIGHT GREAT TOE AREA, RIGHT LEG, BELOW THE KNEE AMPUTEE. PLAN OF CARE DISCUSSED WITH PATIENT, CALL LIGHT AND BEDSIDE TABLE WITHIN REACH.
[2021-04-16] VITALS (8 sets, daily range): BP systolic 113–181; BP diastolic 63–102
--- NOTE | 2021-04-16 00:30 | NUR ---
WRITTER PROVIDED PT WITH SNACK. PT AWAKE WATCHING TV. DENIES ANY PAIN, DENIES ANY OTHER NEEDS AT THIS TIME. CALL LIGHT AND BEDSIDE TABLE WITHIN REACH.
--- NOTE | 2021-04-16 04:33 | NUR ---
WRITTER IN TO DRAW MORNING LABS AT THIS TIME. PT TOLERATED WELL. DENIES ANY NEEDS AT THIS TIME. CALL LIGHT AND BEDSIDE TABLE WITHIN REACH.
[2021-04-16 05:05] LABS: HEMATOCRIT 30.3 % (39.0-50.0); HEMOGLOBIN 9.4 g/dl (14.0-18.0); MEAN CELL VOLUME 85.6 fL CALC (80.0-100.0); MEAN CORPUSCULAR HGB 26.6 pG CALC (26.0-32.0); RED BLOOD COUNT 3.54 mill/uL (4.70-6.10); RED CELL DISTRI WIDTH 13.6 % (11.5-15.5)
[2021-04-16 05:27] LABS: CREATININE 2.9 mg/dL (0.7-1.3); MAGNESIUM 1.6 mg/dL (1.6-2.3)
--- NOTE | 2021-04-16 08:00 | NUR ---
ASSESSMENT DONE. PATIENT IS ALERT AND OREINT X3 BUT SLEEPY. PATIENT DENIES PAIN. TELE IN PLACE. RESPS EVEN AND UNLABORED. RIGHT FOOT DRESSING CDI. PATIENT DENIES NEEDS. CALL LIGHT REACH.
--- NOTE | 2021-04-16 11:00 | NUR ---
PATIENT IS RESTING IN BED WITH NO DISTRESS NOTED. PATIENT DENIES PAIN OR NEEDS. MEDICATED PATIENT WITH APRESOLINE FOR BP 174/90. CALL LIGHT IN REACH.
--- NOTE | 2021-04-16 16:20 | NUR ---
PATIENT IS SEMI-FOLWERS IN BED RESTING. PATIENT DENIES NEEDS AT THIS TIME. CALL LIGHT IN REACH.
--- NOTE | 2021-04-16 18:55 | NUR ---
REPORT RECEIVED FROM Benny HOLLINS RN
--- NOTE | 2021-04-16 19:20 | NUR ---
ALERT ORIENTED X3. NORMAL HEART SOUNDS, LAST TELEMETRY READING SR 80 CLEAR LUNG SOUNDS BILATERALLY, ACTIVE BOWEL SOUNDS, LAST REPORTED BOWEL MOVEMENT TODAY 04/15. SINGLE LUMEN PICC LOCATED ON RIGHT ARM ABOVE AC, SALINE LOCKED. CDI NOTED TO RIGHT GREAT TOE AREA, RIGHT LEG, BELOW THE KNEE AMPUTEE. PLAN OF CARE DISCUSSED WITH PATIENT, CALL LIGHT AND BEDSIDE TABLE WITHIN REACH.
--- NOTE | 2021-04-16 19:56 | NUR ---
WRITTER NOTIFIED BY Kaden MORROW CNA OF ELEVATED BP. WRITTER TO REASSESS AND TREAT ACCORDING TO EMAR.
--- NOTE | 2021-04-16 20:01 | NUR ---
B/P ASSESMENT 179/90, MEDICATED PER EMAR
--- NOTE | 2021-04-16 21:00 | NUR ---
REASSEMENT OF BP 135/65 TEMPERATURE 98.6
--- NOTE | 2021-04-16 21:11 | NUR ---
MEDICATIOSNA DMINISTERED PER EMAR
[2021-04-17] VITALS: BP 150/72
--- NOTE | 2021-04-17 00:45 | NUR ---
PATIENTS TEMPERATURE REASSED, TEMPERATURE WITHIN NORMAL LIMITS. PATIENT SLEEPS WITH FACE UNDER MULTIPLE COVERS. TEMPERATURE 98.9
[2021-04-17 04:00] VITALS: BP 150/79
--- NOTE | 2021-04-17 04:15 | NUR ---
WRITTER IN TO DRAW MORNING LABS VIA PICC. PT TOLERATED WELL.
[2021-04-17 05:17] LABS: HEMATOCRIT 29.7 % (39.0-50.0); HEMOGLOBIN 9.4 g/dl (14.0-18.0); MEAN CELL VOLUME 85.1 fL CALC (80.0-100.0); MEAN CORPUSCULAR HGB 26.9 pG CALC (26.0-32.0); MEAN CORPUSCULAR HGB CONC 31.6 g/dL CAL (32.0-36.0); RED BLOOD COUNT 3.49 mill/uL (4.70-6.10); RED CELL DISTRI WIDTH 13.5 % (11.5-15.5)
[2021-04-17 05:53] LABS: ALBUMIN 2.7 g/dL (3.2-5.0); BILIRUBIN, TOTAL 0.3 mg/dL (0.0-1.4); CREATININE 2.7 mg/dL (0.7-1.3); POTASSIUM 3.8 mmol/l (3.5-5.1)
[2021-04-17 08:00] VITALS: BP 140/76
--- NOTE | 2021-04-17 08:00 | NUR ---
PT AWAKE UPON ENTERING ROOM PT IS A&O X3. PICC LINE IS IN PLACE WITH NO SIGN OF INFILTRATION. BLOOD SUGAR THIS MORNING 186 COVERED BY 2 UNITS OF INSULIN. PT REPORTS NO PAIN AT THIS TIME. S1&S2 HEARD, REGULAR RYTHYM. LUNG SOUNDS ARE CLEAR UPPER/LOWER LOBES. BOWEL SOUNDS ARE ACTIVE X4. RIGHT REDAL PULSE WEAK. RADIAL PULSES ARE STRONG. RESPIRATIONS ARE EVEN/ UNLABORED. TELE MONITOR IN PLACE. CALL LIGHT WITHIN REACH.
--- NOTE | 2021-04-17 10:38 | NUR ---
DR FAGAN AND Dana DAVID HUB ASSOCIATE AT BEDSIDE DISCUSSING POC
[2021-04-17 11:15] VITALS: BP 163/90
--- NOTE | 2021-04-17 12:00 | NUR ---
PT RESTING WATCHING TV IN BED. REPORTS NO PAIN AT THIS TIME. CALL LIGHT WITHIN REACH.
[2021-04-17 12:30] VITALS: BP 145/80
--- NOTE | 2021-04-17 17:00 | NUR ---
S: Patient reported feeling good on this date. O: Patient performed: Transfers independtly Ambulation x 50 feet SBA x 1 with FWW Patient required verbal cuing to not put weight through his RLE. Patient also displayed LLE varus positioning with prosthesis. 2 x 15 each seated hip flexion 2 x 15 each seated knee flexion A: Patient was able to perform all activities without difficulty but required verbal cuing and education on how to ambulate and be non-weight bearing through RLE. Patient was very receptive and was also willing to try ambulating with crutches on the next date of PT after stating he did not feel comfortable using a 2 step gait pattern with FWW. P: Patient will need continued gait training and general BLE strengthening in order to continue to ambulate with the non-weight bearing RLE to allow for RLE surgical site to heal properly. Patient's Am Pac score on this date was 11 which would be a recommendation for an extended care facility. I agree with this recommendation as he has difficulty ambulating only on his prosthestic leg.
--- NOTE | 2021-04-17 18:17 | NUR ---
PT AWAKE WATCHING TELEVISION. DENIES ANY PAIN AT THIS TIME. PICC LINE REMAINS INTACT. MAGNESIUM SULFATE CONTINUES AT THIS TIME. TELE MONITOR IN PLACE. CALL LIGHT MONITOR WITHIN REACH.
[2021-04-17 19:00] VITALS: BP 169/89
--- NOTE | 2021-04-17 19:53 | NUR ---
PT IN BED LAYING ON LEFT SIDE WITH WALKER AND PROSTHESIS AT BEDSIDE W/IN REACH. LIGHTS ARE OFF IN THE ROOM, HE IS PROPPED UP WATCHING TV. IVP IS SOUNDING. IV ABX COMPLETE, SITE FLUSHED PATENT AND SL AT THIS TIME/PICC TO KEN. PT DENIES ANY NEEDS AT THIS TIME. CALL LIGHT IN HAND AND PT ENCOURAGED TO CALL NEEDS ARISE.
--- NOTE | 2021-04-17 21:09 | NUR ---
PT MEDICATED ORDERS PROVIDE. ASSESSMENT COMPLETED ALSO AT THIS TIME. DRESSING TO RIGHT FOOT CDI, PT DENIES ANY PAIN AT THIS TIME. INSTRUCTED TO CALL IF PAIN LEVEL RISES OR IF HE HAS ANY OTHER NEEDS, VERBALIZED UNDERSTANDING. PULSE TO R.FOOT PALPATED UNDER DRESSING STRONG AND CIRCULATION APPEARS INTACT, PT ABLE TO MOVE REMAINING TOES, COLOR IS GOOD.
[2021-04-18 00:12] VITALS: BP 142/72
--- NOTE | 2021-04-18 00:21 | NUR ---
ROOM IS DARK, TV IS OFF. PT APPEARS TO BE SLEEPING, NO S/O DISTRESS NOTED. CALL LIGHT IS W/IN REACH.
--- NOTE | 2021-04-18 02:11 | NUR ---
pt sleeping, lights off tv on low. no s/o distress noted.
[2021-04-18 05:02] VITALS: BP 132/70
--- NOTE | 2021-04-18 05:38 | NUR ---
PT MEDICATED ORDERS PROVIDE. NO S/O DISTRESS NOTED.
[2021-04-18 06:01] LABS: HEMATOCRIT 31.4 % (39.0-50.0); MEAN CELL VOLUME 84.9 fL CALC (80.0-100.0); MEAN CORPUSCULAR HGB CONC 31.8 g/dL CAL (32.0-36.0); RED BLOOD COUNT 3.7 mill/uL (4.70-6.10); RED CELL DISTRI WIDTH 13.7 % (11.5-15.5)
[2021-04-18 06:12] LABS: CREATININE 2.9 mg/dL (0.7-1.3); POTASSIUM 4.1 mmol/l (3.5-5.1)
[2021-04-18 06:18] LABS: MAGNESIUM 2.4 mg/dL (1.6-2.3)
[2021-04-18 07:41] VITALS: BP 160/81
--- NOTE | 2021-04-18 08:00 | NUR ---
PT AWAKE AND ALERT IN BED IN SEMI HU. A&OX3, S1&S2 HEARD, LUNG SOUNDS ARE CLEAR UPPER LOWER LOBES. BREATHING IS EVEN AND UNLABORED. BOWEL SOUNDS ARE ACTIVE X4. BANDAGE ON RIGHT FOOT IS CDI. ACCUCHECK @0630 WAS 234, 4 UNITS OF INSULIN WAS GIVEN. TELEMETRY IN PLACE. PICC LINE ON KEN IS PATENT NO SIGNS OF REDNESS/ INFLAMMATIO. ABLE TO FLUSH IV WITH NO RESTANCE. CALL LIGHT IS WITHIN REACH.
--- NOTE | 2021-04-18 08:32 | NUR ---
PT GIVEN PRUNE JUICE. COVID SAMPLE COLLECTED; SPECIMEN FROM BOTH NARES. PT TOLERATED WELL. SAMPLE LABELED WITH THIS WRITERS INITIALS, DATE, TIME AND SAMPLE LOCATION.
[2021-04-18 10:32] VITALS: BP 155/83
--- NOTE | 2021-04-18 10:44 | NUR ---
AND NEPTALI PEREZ AT BEDSIDE DISCUSSING POC WITH PT
--- NOTE | 2021-04-18 12:15 | NUR ---
PT EATING LUNCH. REPORTS NO PAIN AT THIS TIME. ACCUCHECK: 192 2 UNITS GIVEN. CALL LIGHT IS WITHIN REACH.
[2021-04-18] MEDS ORDERED: AMLODIPINE BESYL5 MG PO (13:18)
[2021-04-18] MEDS ORDERED: LEVEMIR100 UNIT SC (13:21)
--- NOTE | 2021-04-18 15:55 | NUR ---
Discharge instructions given. Patient verbalizes understanding of same. Discharged in stable condition via Medical Transport to [facility] with staff. All belongings sent with pt. UPPERARM PICC REMAINS IN PLACE. HEALTHY AND PATENT. REPORT GIVEN TO FACILITY.
--- NOTE | 2021-04-18 16:02 | NUR ---
S: Patient was alert and reported feeling "pretty good" on this date. O: Patient performed: 2 x 20 seated hip abduction with RTB around knees 2 x 20 each seated marching with RTB around knees 2 x 20 each seated knee flexion with RTB around ankle Ambulation x 40 feet with SBA x 1 Patient required multiple verbal cues to maintain non-weight bearing status on RLE. A: Patient is doing better with understanding the importance on non-weight bearing on RLE and is attempting to follow instruction but still needs to be reminded. Patient was also reminded that upon transfer to make sure that someone can bring newer prosthetic limb to the facility he is being transferred too in order to perform proper gait training. P: Patient will need to work on continued strengthening activities, gait training, and balance training to ambulate and maintain non-weight bearing status on RLE. Patient's Am Pac score on this date was 11 which would be a recommendation for an extended care facility. I agree with this recommedation due to patient being required to weight bear solely through prosthetic limb and BUE.
--- NOTE | 2021-04-18 16:28 | NUR ---
PT IN ROOM AWAITING ARRIVAL OF [facility]. REPORTS NO PAIN AT THIS TIME. CALL LIGHT IS WITHIN REACH.
== END 2021-04-18 16:07 | DRG 854 ==
LOC: ED 12:43 → ED-I 14:33 → MS2 14:59 → ED 14:59 → MS2 14:59
PROVIDERS: Emergency Medicine; Hospitalist; Nurse Practitioner; Nurse Practitioner Family; ADMIT Internal Medicine; ATTEND Internal Medicine
PROC: 3E02340 Introduction of Influenza Vaccine into Muscle, Percutaneous Approach (ICD-10-PCS; 2021-04-09)
PROC: 02HV33Z Insertion of Infusion Device into Superior Vena Cava, Percutaneous Approach (ICD-10-PCS; 2021-04-12)
PROC: B518ZZA Fluoroscopy of Superior Vena Cava, Guidance (ICD-10-PCS; 2021-04-12)
PROC: 0Y6M0Z9 Detachment at Right Foot, Partial 1st Ray, Open Approach (ICD-10-PCS; principal; 2021-04-13)
PROC: 0HXMXZZ Transfer Right Foot Skin, External Approach (ICD-10-PCS; 2021-04-13)
PROC: 02PY33Z Removal of Infusion Device from Great Vessel, Percutaneous Approach (ICD-10-PCS; 2021-04-14)
PROC: 02HV33Z Insertion of Infusion Device into Superior Vena Cava, Percutaneous Approach (ICD-10-PCS; 2021-04-14)
PROC: B518ZZA Fluoroscopy of Superior Vena Cava, Guidance (ICD-10-PCS; 2021-04-14)
DX: A41.9 Sepsis, unspecified organism (principal); M86.8X7 Other osteomyelitis, ankle and foot; N17.9 Acute kidney failure, unspecified; E87.2 Acidosis; E11.621 Type 2 diabetes mellitus with foot ulcer; L97.519 Non-pressure chronic ulcer of other part of right foot with unspecified severity; L03.031 Cellulitis of right toe; I12.9 Hypertensive chronic kidney disease with stage 1 through stage 4 chronic kidney disease, or unspecified chronic kidney disease; E11.22 Type 2 diabetes mellitus with diabetic chronic kidney disease; N18.9 Chronic kidney disease, unspecified; R65.20 Severe sepsis without septic shock; E11.40 Type 2 diabetes mellitus with diabetic neuropathy, unspecified; E11.610 Type 2 diabetes mellitus with diabetic neuropathic arthropathy; E11.65 Type 2 diabetes mellitus with hyperglycemia; E11.69 Type 2 diabetes mellitus with other specified complication; E78.5 Hyperlipidemia, unspecified; B95.1 Streptococcus, group B, as the cause of diseases classified elsewhere; Z23 Encounter for immunization; Z79.4 Long term (current) use of insulin; Z89.512 Acquired absence of left leg below knee; Z86.16 Personal history of COVID-19; Z91.19 Patient's noncompliance with other medical treatment and regimen; Z20.822 Contact with and (suspected) exposure to COVID-19
CPT/HCPCS: J0692; J3475; Q3014

== ENCOUNTER 2021-05-12 13:50 | Emergency (ER) | payer MEDICARE, MEDICAID ==
[~2021-05-12] VITALS: Ht 185.4 cm; Wt 108.8 kg
[~2021-05-12 13:50] MED LIST changes: +AMLODIPINE BESYL5 MG PO; +LEVEMIR100 UNIT SC
[2021-05-12 16:20] VITALS: BP 174/91
== END 2021-05-12 16:20 | disposition home or self-care (01) ==
LOC: ED 13:50
DX: Z48.01 Encounter for change or removal of surgical wound dressing (principal); E11.40 Type 2 diabetes mellitus with diabetic neuropathy, unspecified; I10 Essential (primary) hypertension; C95.90 Leukemia, unspecified not having achieved remission; Z86.16 Personal history of COVID-19; Z79.4 Long term (current) use of insulin; Z89.411 Acquired absence of right great toe

== ENCOUNTER 2021-10-18 14:49 | Emergency (ER) | payer OTHER, MEDICARE, MEDICAID ==
[~2021-10-18] VITALS: Ht 185.4 cm; Wt 100.0 kg
[~2021-10-18 14:49] MED LIST changes: +SPS15 GM/601 PO
[2021-10-18 15:01] VITALS: BP 146/78
[2021-10-18 15:15] VITALS: BP 136/81
[2021-10-18 15:53] VITALS: BP 136/81
[2021-10-18] MEDS ORDERED: MELOXICAM7.5 MG PO (17:12)
[2021-10-18] MEDS ORDERED: CYCLOBENZAPRINE10 MG PO (17:12)
== END 2021-10-18 17:23 | disposition home or self-care (01) | DRG 103 ==
LOC: ED 14:49
DX: R51.9 Headache, unspecified (principal); M54.2 Cervicalgia; I10 Essential (primary) hypertension; E11.40 Type 2 diabetes mellitus with diabetic neuropathy, unspecified; C95.90 Leukemia, unspecified not having achieved remission; Z79.4 Long term (current) use of insulin; Z89.512 Acquired absence of left leg below knee; Z86.16 Personal history of COVID-19; V49.50XA Passenger injured in collision with unspecified motor vehicles in traffic accident, initial encounter

== ENCOUNTER 2021-11-04 15:20 | Emergency (ER) | payer MEDICARE, MEDICAID ==
[~2021-11-04] VITALS: Ht 185.4 cm; Wt 81.8 kg
[~2021-11-04 15:20] MED LIST changes: +CYCLOBENZAPRINE10 MG PO; +MELOXICAM7.5 MG PO
[2021-11-04 16:38] VITALS: BP 123/82
[2021-11-04 17:00] VITALS: BP 129/79
[2021-11-04 17:30] VITALS: BP 139/93
[2021-11-04] MEDS ORDERED: MELOXICAM15 MG PO (18:12)
[2021-11-04 18:17] VITALS: BP 139/93
== END 2021-11-04 18:30 | disposition home or self-care (01) ==
LOC: ED 15:20
DX: R51.9 Headache, unspecified (principal); E11.40 Type 2 diabetes mellitus with diabetic neuropathy, unspecified; I10 Essential (primary) hypertension; C95.90 Leukemia, unspecified not having achieved remission; Z86.16 Personal history of COVID-19; Z89.512 Acquired absence of left leg below knee; Z79.4 Long term (current) use of insulin

== ENCOUNTER 2021-11-23 13:51 | Emergency (ER) | payer MEDICARE ==
[~2021-11-23] VITALS: Ht 185.4 cm; Wt 100.0 kg
[~2021-11-23 13:51] MED LIST changes: +MELOXICAM15 MG PO
[2021-11-23 15:19] LABS: ALBUMIN 3.2 g/dL (3.2-5.0); CREATININE 4.3 mg/dL (0.7-1.3); TOTAL PROTEIN 7.1 g/dL (6.3-8.2)
[2021-11-23 15:21] LABS: BILIRUBIN, TOTAL 0.9 mg/dL (0.0-1.4); POTASSIUM 4.4 mmol/l (3.5-5.1)
[2021-11-23 16:02] LABS: HEMATOCRIT 33.5 % (39.0-50.0); HEMOGLOBIN 10.6 g/dl (14.0-18.0); IMMATURE GRANULOCYTES 0.4 % (0.0-5.0); MEAN CELL VOLUME 86.6 fL CALC (80.0-100.0); MEAN CORPUSCULAR HGB 27.4 pG CALC (26.0-32.0); MEAN CORPUSCULAR HGB CONC 31.6 g/dL CAL (32.0-36.0); NEUT# 9.52 thou/uL (1.82-7.42); RED BLOOD COUNT 3.87 mill/uL (4.70-6.10); RED CELL DISTRI WIDTH 13.7 % (11.5-15.5)
[2021-11-23] MEDS ORDERED: BACTRIM DS1 TAB PO (18:18)
[2021-11-23] MEDS ORDERED: CEPHALEXIN500 MG PO (18:18)
[2021-11-23 19:09] VITALS: BP 118/72
== END 2021-11-23 19:25 | disposition home or self-care (01) ==
LOC: ED 13:51
PROVIDERS: Family Medicine
DX: T87.44 Infection of amputation stump, left lower extremity (principal); E11.40 Type 2 diabetes mellitus with diabetic neuropathy, unspecified; I12.9 Hypertensive chronic kidney disease with stage 1 through stage 4 chronic kidney disease, or unspecified chronic kidney disease; E11.22 Type 2 diabetes mellitus with diabetic chronic kidney disease; N18.9 Chronic kidney disease, unspecified; C95.90 Leukemia, unspecified not having achieved remission; Y83.5 Amputation of limb(s) as the cause of abnormal reaction of the patient, or of later complication, without mention of misadventure at the time of the procedure; Z79.4 Long term (current) use of insulin; Z86.16 Personal history of COVID-19; Z89.512 Acquired absence of left leg below knee

== ENCOUNTER 2021-12-29 11:45 | Emergency (ER) | payer MEDICARE, OTHER ==
[~2021-12-29] VITALS: Ht 185.4 cm; Wt 95.0 kg
[~2021-12-29 11:45] MED LIST changes: +BACTRIM DS1 TAB PO; +CEPHALEXIN500 MG PO
[2021-12-29 13:47] VITALS: BP 160/100
[2021-12-29] MEDS ORDERED: VIBRAMYCIN100 M2 PO (13:51)
[2021-12-29 13:54] VITALS: BP 160/100
== END 2021-12-29 14:22 | disposition home or self-care (01) ==
LOC: ED 11:45
DX: L03.211 Cellulitis of face (principal); L02.01 Cutaneous abscess of face; E11.40 Type 2 diabetes mellitus with diabetic neuropathy, unspecified; I10 Essential (primary) hypertension; C95.90 Leukemia, unspecified not having achieved remission; Z89.512 Acquired absence of left leg below knee; Z86.16 Personal history of COVID-19; Z79.4 Long term (current) use of insulin

== ENCOUNTER 2022-04-29 11:37 | Inpatient (IN) | payer MEDICARE, MEDICAID ==
[~2022-04-29] VITALS: Ht 185.4 cm; Wt 86.4 kg
[2022-04-29] VITALS (17 sets, daily range): BP systolic 128–183; BP diastolic 76–115
[~2022-04-29 11:37] MED LIST changes: +VIBRAMYCIN100 M2 PO
--- NOTE | 2022-04-29 11:50 | NUR ---
PATIENT TO ROOM AMBULATING WITH A CRUTCH.
[2022-04-29 12:47] LABS: HEMATOCRIT 33.1 % (39.0-50.0); HEMOGLOBIN 10.3 g/dl (14.0-18.0); IMMATURE GRANULOCYTES 0.1 % (0.0-5.0); MEAN CELL VOLUME 87.8 fL CALC (80.0-100.0); MEAN CORPUSCULAR HGB 27.3 pG CALC (26.0-32.0); MEAN CORPUSCULAR HGB CONC 31.1 g/dL CAL (32.0-36.0); NEUT# 7.49 thou/uL (1.82-7.42); RED BLOOD COUNT 3.77 mill/uL (4.70-6.10); RED CELL DISTRI WIDTH 14.9 % (11.5-15.5)
[2022-04-29 13:48] LABS: ALBUMIN 3.8 g/dL (3.2-5.0); BILIRUBIN, TOTAL 0.6 mg/dL (0.0-1.4); TOTAL PROTEIN 8.3 g/dL (6.3-8.2)
[2022-04-29 13:59] LABS: CREATININE 5.8 mg/dL (0.7-1.3); POTASSIUM 6.9 mmol/l (3.5-5.1)
--- NOTE | 2022-04-29 18:03 | NUR ---
BEDSIDE REPORT GIVEN TO GIANCARLO SHEFFIELD ON MED SURG UNIT
[2022-04-29 18:15] LABS: CREATININE 5.4 mg/dL (0.7-1.3); POTASSIUM 5.7 mmol/l (3.5-5.1)
--- NOTE | 2022-04-29 18:48 | NUR ---
PT ARRIVED ON UNIT @ 1752 TRNSPORTED VIA STRETCHER AND TRANSFERRED TO BED. BEDSIDE REPORT RECEIVED FROM MARITZA IN ED. PT ALERT AND ORIENTED X 3, C/O NAUSEA AND VOMITTING AT THIS TIME STATING HE HAS BEEN NAUTIOUS AND VOMITTING SINCE YESTERDAY. TELE MONITOR IN PLACE, CALL MILLER IN REACH AND BED LOCKED IN LOWEST POSITION. PT HSS PROSTHESIS FOR LEFT LEG AT BEDSIDE.
--- NOTE | 2022-04-29 19:40 | NUR ---
BEDSIDE REPORT RECEIVED FROM NETTIE RIGGINS. PATIENT RESTING IN BED WATCHING TV. NO DISTRESS NOTED, DENIES PAIN AT THIS TIME. CALL LIGHT WITHIN REACH.
--- NOTE | 2022-04-29 20:00 | NUR ---
NORBERTO HELD PER DIALYSIS NURSE RECOMMENDATION.
--- NOTE | 2022-04-29 21:30 | NUR ---
VERBAL REPORT AND WRITTEN HAND-OFF RECEIVED FROM PRIMARY NURSE Brian RANDHAWA RN. PT TRANSFERRED FROM ROOM 276 TO ROOM 286 FOR DIALYSIS IN BED WITH ASSIST FROM Maira MARTINES CNA.
--- NOTE | 2022-04-29 21:40 | NUR ---
PATIENT TRANSPORTED TO DIALYSIS VIA BED.
--- NOTE | 2022-04-30 01:46 | NUR ---
PT REPORTS NAUSEA POST HD, ZOFRAN ADMINISTERED WITH GOOD EFFECT, POINT OF CARE GLUCOSE 112mg/dl.
--- NOTE | 2022-04-30 01:50 | NUR ---
DIALYSIS NOTE: START TIME: 2134 END TIME: 145 TIME COMPLETED: 3 HOURS 50 MINUTES FLUID REMOVED: 500ml PRE TX WEIGHT: 87 KG POST TX WEIGHT: 86.5 KG PRE TX VS: NIBP 160/99 mmHg HR 82 bpm RR 18/MIN T 97 F POST TX VS: NIBP 149/83 mmHg HR 80 bpm RR 18/MIN T 97 F HEP B ANTIGEN: NEGATIVE (04/29/22) HEP B ANTIBODY: NEGATIVE (04/29/22) VERIFIED INFORMED CONSENT SIGNED BY PATIENT AND DR. BERMUDEZ, WITNESSED BY Santosh ROSALES RN. LABS REVIEWED, ASSESMENT COMPLETED. ORDERS FOR HEMODIALYSIS OBTAINED FROM DR. BERMUDEZ. EDUCATION PROVIDED TO PATIENT. ACCESS: RIGHT IJ DOUBLE LUMEN CVC INSERTED 04/29/[address] AVALOS IN ED. CXR REVIEWED FOR PLACEMENT VERIFICATION. DRESSING IS C/D/I. ACCESSED PER [facility] HD CVC POLICY. FLUSHES EASILY WITH GOOD BLOOD RETURN. POST HD TX CVC FLUSHES EASILY WITH GOOD BLOOD RETURN. SALINE FLUSHED WITH 10ML PER LUMEN AND HEPLOCKED WITH 1.2ML HEPARIN 1000 UNITS/ML. TEGO CONNECTORS AND SWAB CAPS APPLIED TO EACH LUMEN. LUMEN CLAMPS ENGAGED. EXPOSED LUMEN WRAPPED WITH 4X4 GAUZE AND SECURED WITH PAPER TAPE. ASEPTIC TECHNIQUE MAINTAINED THROUGHOUT ACCESS AND DEACCESS PROCEDURES. MEDICATIONS ADMINISTERED: HEPARIN 2,000 UNITS LOADING DOSE, HEPARIN 1,000 UNIT /ML 1.2 ML FOR HEPLOCK TO EACH LUMEN. ZOFRAN FOR C/O NAUSEA. SEE E-MAR. ASSESMENT: PT A/OX3, NO APPARENT DISTRESS. VERBALIZES UNDERSTANDING OF PROVIDED DIALYSIS EDUCATION. NO GROSS EDEMA NOTED. RESPIRATIONS REGULAR AND UNLABORED. LUNGS CLEAR. NSR ON TELEMETRY. TABLO SERIAL #: [id number] DIALYZER/LOT #: OPTIFLUX [id number] CARTRIDGE LOT#: [id number] PH: 7.2 WATER TEMP: 73 R/O REJECTION: 98.9% EXPECTED CONDUCTIVITY: 13.7 ACTUAL CONDUCTIVITY: 13.6
--- NOTE | 2022-04-30 01:55 | NUR ---
VERBAL REPORT AND WRITTEN HAND-OFF PROVIDED TO PRIMARY NURSE Brian RANDHAWA RN. PT RETURNED TO ROOM 267 IN BED POST HEMODIALYSIS. CARE OF PT SURRENDERED TO Brian RANDHAWA RN AT THIS TIME.
--- NOTE | 2022-04-30 02:08 | NUR ---
Patient arrived back from dialysis, report received from NETTIE Khan. Patient resting quietly alert and oriented x3. VSS. Assessment completed. No distress noted, denies pain at this time. Call light in reach.
[2022-04-30 04:35] VITALS: BP 170/95
[2022-04-30 05:07] LABS: URINE BILIRUBIN - DIPSTICK NEGATIVE (NEGATIVE); URINE BLOOD DIPSTICK SMALL (NEGATIVE); URINE CLARITY CLEAR; URINE COLOR YELLOW; URINE GLUCOSE - DIPSTICK 100 mg/dL (NEGATIVE); URINE KETONE TRACE mg/dL (NEGATIVE); URINE LEUK ESTERASE NEGATIVE (Negative); URINE NITRITE - DIPSTICK NEGATIVE (Negative); URINE PROTEIN - DIPSTICK >=300 mg/dL (NEG-TRACE); URINE UROBILINOGEN - DIPSTICK 0.2 E.U./dL (0.2)
[2022-04-30 05:11] LABS: URINE BACTERIA FEW hpf; URINE EPITHELIAL CELLS FEW EPI/hpf (0-FEW)
[2022-04-30 06:08] VITALS: BP 159/95
[2022-04-30 06:52] LABS: HEMATOCRIT 32.1 % (39.0-50.0); HEMOGLOBIN 10.2 g/dl (14.0-18.0); MEAN CELL VOLUME 85.8 fL CALC (80.0-100.0); MEAN CORPUSCULAR HGB 27.3 pG CALC (26.0-32.0); MEAN CORPUSCULAR HGB CONC 31.8 g/dL CAL (32.0-36.0); RED BLOOD COUNT 3.74 mill/uL (4.70-6.10); RED CELL DISTRI WIDTH 14.5 % (11.5-15.5)
--- NOTE | 2022-04-30 07:37 | NUR ---
PT RESTING IN LOW FOWLERS POSITION. PT A/OX3 ASSESSMENT AND VS COMPLETED. HEART RHYTHM ON TELE .RESPIRATIONS ON ROOM AIR. BOWEL SOUNDS ACTIVE. DIALYSIS CATH IN PLACE NOTED TO RIJ. S.L. PT DENIES ADDITIONAL NEEDS AT THE TIME ALL SAFETY PRECAUTIONS IN PLACE WITH CALL LIGHT IN REACH. ALL SAFTEY PRECAUTIONS IN PLACE CALL LIGHT IN REACH.
[2022-04-30 10:19] VITALS: BP 148/74
[2022-04-30 11:20] LABS: ALBUMIN 3.2 g/dL (3.2-5.0); POTASSIUM 4.6 mmol/l (3.5-5.1)
[2022-04-30 11:45] LABS: MAGNESIUM 1.4 mg/dL (1.6-2.3)
--- NOTE | 2022-04-30 12:00 | NUR ---
PT IV ABX HOLD PER DIALYSIS TO BE DONE.
--- NOTE | 2022-04-30 12:04 | NUR ---
CALLED DR LONG OFFICE REGARDING CONSULTATION. SPOKE TO DR LONG.
--- NOTE | 2022-04-30 14:20 | NUR ---
PT TO ROOM 286 FROM ROOM 267 FOR DIALYSIS VIA WHEELCHAIR, ACCOMPANIED BY CERTIFIED HOME HEALTH AIDE. VERBAL REPORT AND WRITTEN HAND-OFF RECEIVED FROM PRIMARY NURSE Dhara PHOENIX LPN. CARE OF PT ASSUMED AT THIS TIME.
--- NOTE | 2022-04-30 15:51 | NUR ---
PT CURRENTLY IN DIALYSIS .
--- NOTE | 2022-04-30 17:15 | NUR ---
DIALYSIS NOTE: START TIME: 1423 END TIME: 1712 TIME COMPLETED: 2 HOURS, 35 MINUTES FLUID REMOVED: 500ml PRE TX WEIGHT: 86 KG POST TX WEIGHT: 85.5 KG PRE TX VS: NIBP 147/83 mmHg HR 82 bpm RR 18/MIN T 97.3 F POST TX VS: NIBP 142/88 mmHg HR 70bpm RR 18/MIN T 98.2 F HEP B ANTIGEN: NEGATIVE (04/29/22) HEP B ANTIBODY: NEGATIVE (04/29/22) VERIFIED INFORMED CONSENT SIGNED BY PATIENT AND DR. BERMUDEZ, WITNESSED BY Santosh ROSALES RN. LABS REVIEWED, ASSESMENT COMPLETED. ORDERS FOR HEMODIALYSIS OBTAINED FROM DR. BERMUDEZ. EDUCATION PROVIDED TO PATIENT. ACCESS: RIGHT IJ DOUBLE LUMEN CVC INSERTED 04/29/[address] AVALOS IN ED. CXR REVIEWED FOR PLACEMENT VERIFICATION. DRESSING IS C/D/I. ACCESSED PER [facility] HD CVC POLICY. FLUSHES EASILY WITH GOOD BLOOD RETURN. POST HD TX CVC FLUSHES EASILY WITH GOOD BLOOD RETURN. SALINE FLUSHED WITH 10ML PER LUMEN AND HEPLOCKED WITH 1.2ML HEPARIN 1000 UNITS/ML. TEGO CONNECTORS AND SWAB CAPS APPLIED TO EACH LUMEN. LUMEN CLAMPS ENGAGED. EXPOSED LUMEN WRAPPED WITH 4X4 GAUZE AND SECURED WITH PAPER TAPE. ASEPTIC TECHNIQUE MAINTAINED THROUGHOUT ACCESS AND DEACCESS PROCEDURES. MEDICATIONS ADMINISTERED: HEPARIN 2,000 UNITS LOADING DOSE, HEPARIN 1,000 UNIT /ML 1.2 ML FOR HEPLOCK TO EACH LUMEN. SEE E-MAR. ASSESMENT: PT A/OX3, NO APPARENT DISTRESS. VERBALIZES UNDERSTANDING OF PROVIDED DIALYSIS EDUCATION. NO GROSS EDEMA NOTED. RESPIRATIONS REGULAR AND UNLABORED. LUNGS CLEAR. NSR ON TELEMETRY. TABLO SERIAL #:[id number] DIALYZER/LOT #: OPTIFLUX [id number] CARTRIDGE LOT #: [id number] PH: 7.2 WATER TEMP: 79 R/O REJECTION: 99% EXPECTED CONDUCTIVITY: 13.9 ACTUAL CONDUCTIVITY: 13.7
--- NOTE | 2022-04-30 17:25 | NUR ---
PT RETURNED TO ROOM 267 VIA WHEEL CHAIR POST HEMODIALYSIS TX. ACCOMPANIED BY CORPORATE TRAINING MANAGER. VERBAL REPORT AND WRITTEN HAND-OFF RETURNED TO PRIMARY NURSE Dhara PHOENIX LPN. CARE OF PT SURRENDERED AT THIS TIME.
--- NOTE | 2022-04-30 17:30 | NUR ---
PT RETURNED FROM DIALYSIS 500 REMOVED FROM PT. BLOOD SUGAR TO BE COLLECTED AND INSULIN TO BE PROVIDED IF NEEDED.
[2022-04-30 19:03] VITALS: BP 114/62
--- NOTE | 2022-04-30 19:05 | NUR ---
RECIEVED REPORT, ASSESSED PT AT BEDSIDE. A/O X3. WATCHING TV, BREATHING EVEN AND NON LABORED, NO O2. UPPER EXTREMITY STRENGTH STRONG, NO DRIFT. LOWER EXTREMITIES OBEY COMMANDS. CLEAR LUNGS. ABDOMEN NON-TENDER, NON FIRM WITH ACTIVE BOWEL SOUNDS. PT DENIES PAIN WHEN URINATING. ABCESS ON LOWER LEFT EXTREMITY NOT COVERED, RECIEVED IN REPORT NOT TO COVER. PT DENIES ANY NEEDS. ALL SAFETY PRECAUTIONS IN PLACE AT THIS TIME.
[2022-05-01] VITALS (8 sets, daily range): BP systolic 108–142; BP diastolic 59–88
--- NOTE | 2022-05-01 | NUR ---
PT AWAKE IN BED WATCHING TV. BREATHING REMAINS THE SAME, NO SIGNS OF RESPIRATORY DISTRESS. PT DENIES ANY PAIN OR DISCOMFORT. PT DENIES ANY NEEDS. ALL SAFETY PRECAUTIONS IN PLACE AT THIS TIME.
--- NOTE | 2022-05-01 01:30 | NUR ---
ATTEMPTED X3 TIMES TO PLACE AN IV FOR ANTIBIODIC MEDICATION. UNABLE TO OBTAIN A STABLE IV SITE. COLD PATCHER TRIED X2 TO PLACE IV SITE, UNABLE TO OBTAIN. NO ORDERS TO GIVE ANTIBIODIC THROUGH THE TEMPORARY DIALYSIS CATHETER PIGGY BACK. ATTEMPTED TO CALL AND DIAYLSIS NURSE UNSUCCESSFUL IN REACHING. DR. DAVILA ORDERED TO HOLD ANTIBIODIC ZOCYN 0100.
[2022-05-01 05:43] LABS: ALBUMIN 3.5 g/dL (3.2-5.0); CREATININE 3.5 mg/dL (0.7-1.3); POTASSIUM 3.7 mmol/l (3.5-5.1)
--- NOTE | 2022-05-01 07:07 | NUR ---
PT RESTING IN LOW FOWLERS POSITION. A/OX3 ASSESSMENT AND VS COMPLETED.HEARTRHYTHM ON TELE RESPIRATIONS UNLABORED. RIJ DIALYSIS CATH NOTED. NO KNEW ORDERS FOR MED USE. PT DENIES ADDITIONAL NEEDS AT THE TIME ALL SAFETY PRECAUTIONS IN PLACE.
--- NOTE | 2022-05-01 10:21 | NUR ---
PT RIJ IN CHART ABLE TO USE PER VERIFICATION WITH DIALYSIS NURSE AND CC. ALL MEDS ABLE TO GIVEN PER DIALYSIS NURSE. DIALYSIS AFTER LUNCH.
--- NOTE | 2022-05-01 12:00 | NUR ---
DIALYSIS NURSE APPROVAL OF USING IJ GLEN PROVIDER AWARE AND STATED APPROVAL WELL.
--- NOTE | 2022-05-01 16:00 | NUR ---
PT DENIES ADDITIONAL NEEDS AT THE TIME. PT INFORMED OF DIALYSIS TOMORROW. NO TIME PROVIDED. PT AWARE .
--- NOTE | 2022-05-01 19:05 | NUR ---
PT ASSESSED AT BEDSIDE. RECIEVED REPORT. PT A/OX3, CLEAR LUNGS, NON TENDER ABDOMEN, NON DISTENDED WITH ACTIVE BOWEL SOUNDS X4. NO URINE IN URINAL. PT DENIES PAIN. RIJ FLUSHED. BREATHING EVEN AND NON LBAORED. PT DENIES ANY NEEDS AT THIS TIME. ALL SAFETY PRECAUTIONS IN PLACE AT THIS TIME.
[2022-05-02] VITALS (7 sets, daily range): BP systolic 120–182; BP diastolic 63–101
--- NOTE | 2022-05-02 00:26 | NUR ---
PT SLEEPING IN BED, APPEARS PRN SONATA HELPED PT SLEEP. EASILY AROUSED. A/OX3. IV ANTIBIODIC STARTED. PT DENIES ANY PAIN OR DISCOMFORT. BREATHING REMAINS THE SAME. ALL SAFETY PRECAUTIONS IN PLACE AT THIS TIME
--- NOTE | 2022-05-02 04:07 | NUR ---
PT SLEEPING IN BED, BREATHING REMAINS EVEN AND NON LABORED. NO SIGNS OF DISTRESS OR DISCOMFORT. ALL SAFETY PRECAUTIONS IN PLACE AT THIS TIME
[2022-05-02 06:27] LABS: ALBUMIN 3.3 g/dL (3.2-5.0); POTASSIUM 4.1 mmol/l (3.5-5.1)
[2022-05-02 06:34] LABS: CREATININE 4.7 mg/dL (0.7-1.3); MAGNESIUM 1.9 mg/dL (1.6-2.3)
--- NOTE | 2022-05-02 07:28 | NUR ---
RECHECK BLOOD GLUCOSE AT THIS TIME, 70. JUICE AND CRACKERS PROVIDED. NONSYMPTOMATIC AT THIS TIME. WILL CONTINUE TO MONITOR.
--- NOTE | 2022-05-02 07:41 | NUR ---
REPORT FROM LILI SHORE. ASSUMED PT CARE.
--- NOTE | 2022-05-02 10:24 | NUR ---
DR. DAVILA AT BEDSIDE.
[2022-05-02] MEDS ORDERED: BACTRIM1 TAB PO (10:26)
--- NOTE | 2022-05-02 13:40 | NUR ---
IV ABT INFUSING WITHOUT DIFFICULTY VIA RIJ. PT TOLERATING WELL. PT DENIES ANY CURRENT WANTS OR NEEDS. CALL LIGHT WITHIN REACH. WILL CONTINUE TO MONITOR.
--- NOTE | 2022-05-02 15:00 | NUR ---
PT RECEIVED FROM ROOM 267 TO ROOM 286 FOR HEMODIALYSIS TREATMENT. TRANSFERRED VIA WHEEL CHAIR, ACCOMPANIED BY ANDROID SOFTWARE ENGINEER. PT ARRIVES WITH TELEMETRY AND NO OTHER ATTATCHMENTS. REPORT RECEIVED FROM PRIMARY NURSE Maira LOMELI RN, CARE OF PT ASSUMED AT THIS TIME.
--- NOTE | 2022-05-02 16:58 | NUR ---
NEEDLE BAR MOLDER SPOKE WITH PHARMACY REGARDING X1 DOSE OF BACTRIM PRIOR TO DISCHARGE AND IV ANTIBIOTICS ORDERED NEEDING CLARIFICATION. PT NOT DISCHARGING DUE TO NO CHAIR TIME SCHEDULED AT [facility] AND NO APPOINTMENT SCHEDULE FOR DIALYSIS PERM CATH PLACEMENT DUE TO PENDING LABS TEST PER CASE MANAGEMENT.
--- NOTE | 2022-05-02 18:25 | NUR ---
DIALYSIS NOTE: START TIME: 1507 END TIME: 1823 TIME COMPLETED: 3 HOURS FLUID REMOVED: 500ml PRE TX WEIGHT: 85.4 KG POST TX WEIGHT: 85 KG PRE TX VS: NIBP 169/92 mmHg HR 76 bpm RR 18/MIN T 97.9 F POST TX VS: NIBP 160/92 mmHg HR 77 bpm RR 18/MIN T 98.1 F HEP B ANTIGEN: NEGATIVE (04/29/22) HEP B ANTIBODY: NEGATIVE (04/29/22) VERIFIED INFORMED CONSENT SIGNED BY PATIENT AND DR. BERMUDEZ, WITNESSED BY Santosh ROSALES RN. LABS REVIEWED, ASSESMENT COMPLETED. ORDERS FOR HEMODIALYSIS OBTAINED FROM DR. BERMUDEZ. EDUCATION PROVIDED TO PATIENT. ACCESS: RIGHT IJ DOUBLE LUMEN CVC INSERTED 04/29/[address] AVALOS IN ED. CXR REVIEWED FOR PLACEMENT VERIFICATION. DRESSING IS C/D/I. ACCESSED PER [facility] HD CVC POLICY. FLUSHES EASILY WITH GOOD BLOOD RETURN. POST HD TX CVC FLUSHES EASILY WITH GOOD BLOOD RETURN. SALINE FLUSHED WITH 10ML PER LUMEN AND HEPLOCKED WITH 1.2ML HEPARIN 1000 UNITS/ML. TEGO CONNECTORS AND SWAB CAPS APPLIED TO EACH LUMEN. LUMEN CLAMPS ENGAGED. EXPOSED LUMEN WRAPPED WITH 4X4 GAUZE AND SECURED WITH PAPER TAPE. ASEPTIC TECHNIQUE MAINTAINED THROUGHOUT ACCESS AND DEACCESS PROCEDURES. MEDICATIONS ADMINISTERED: HEPARIN 3,000 UNITS LOADING DOSE, HEPARIN 1,000 UNIT /ML 1.2 ML FOR HEPLOCK TO EACH LUMEN. SEE E-MAR. ASSESMENT: PT A/OX3, NO APPARENT DISTRESS. VERBALIZES UNDERSTANDING OF PROVIDED DIALYSIS EDUCATION. NO GROSS EDEMA NOTED. RESPIRATIONS REGULAR AND UNLABORED. LUNGS CLEAR. NSR ON TELEMETRY. TABLO SERIAL #:[id number] DIALYZER/LOT #:[id number] CARTRIDGE LOT #: [id number] PH: 7.2 WATER TEMP: 80.2 R/O REJECTION: 99% EXPECTED CONDUCTIVITY: 14 ACTUAL CONDUCTIVITY: 14.2
--- NOTE | 2022-05-02 18:35 | NUR ---
PT RETURNED TO ROOM 267 POST HEMODIALYSIS TREATMENT VIA WHEELCHAIR. VERBAL REPORT AND WRITTEN HAND-OFF PROVIDED TO PRIMARY NURSE Maira LOMELI RN. CARE OF PT SURRENDERED AT THIS TIME.
--- NOTE | 2022-05-02 20:20 | NUR ---
RECEIVED REPORT FROM NETTIE LOMELI. PT SITTING ON BED LOW FOWLERS, WATCHING TV: A&O X3. EVEN AND UNLABORED RESPIRATIONS: CLEAR LUNG SOUNDS UPON AUSCULTATION. TELEMETRY IN PLACE. DIALYSIS PORT NOTED TO RIGHT IJ. ACTIVE BOWEL SLUNDS X4 QUADRANTS. BKA TO LEFT SIDE NOTED; DRESSING CDI. SAFETY PRECAUTIONS IN PLACE WITH CALL LIGHT IN REACH.
[2022-05-03] VITALS (7 sets, daily range): BP systolic 130–171; BP diastolic 74–95
--- NOTE | 2022-05-03 00:20 | NUR ---
PT RESTING WITH EYES CLOSED. VS OBTAINED AT THIS TIME. NO DISTRESS NOTED. PT DENIES PAIN AT THIS TIME. SAFETY PRECAUTIONS IN PLACE WITH CALL LIGHT IN REACH.
--- NOTE | 2022-05-03 04:30 | NUR ---
PT RESTING WITH EYES CLOSED. NO DISTRESS NOTED. VS OBTAINED AT THIS TIME. NO NEEDS AT THE MOMENT. SAFETY PRECAUTIONS IN PLACE WITH CALL LIGHT IN REACH.
--- NOTE | 2022-05-03 04:56 | NUR ---
PT REFUSED TO GET UP FOR HIS DAILY WEIGHT.
[2022-05-03 06:14] LABS: ALBUMIN 3.3 g/dL (3.2-5.0); CREATININE 3.8 mg/dL (0.7-1.3); MAGNESIUM 1.7 mg/dL (1.6-2.3); POTASSIUM 4.2 mmol/l (3.5-5.1)
--- NOTE | 2022-05-03 08:00 | NUR ---
GOT REPORT FROM LEAD QUALITY TECHNICIAN NURSE. PATIENT AWAKE IN BED, INTRODUCED MYSELF NEW ONCOMING NURSE. PATIENT ASSESSED, AOX3, PATIENT CURRENTLY ON ROOM AIR. PATIENT REFUSED TO HAVE DAILY WEIGHT CHECKED THIS AM. I EXPLAINED WHY WE GET THE DAILY WEIGHT AND MONITOR HIS FLUIDS. PATIENT AGREED TO HAVE STANDING WEIGHT DONE. PATIENT WEIGHT INCREASED FROM 85.KG TO 86.4KG. THIS IS AT A DIFFERENT TIME IN THE MORNING WELL. PATIENT DENIES ANY SXS OF DISTRESS. BED ALARM ON, CALL LIGHT AND BEDSIDE TABLE WITH IN REACH. ADVISED TO CALL IF SHE NEEDS ANYTHING.
--- NOTE | 2022-05-03 12:00 | NUR ---
PATIENT IS SITTING IN BED EATING LUNCH. PATIENT DENIES ANY SXS OF DISTRESS. BED ALARM ON, CALL LIGHT AND BEDSIDE TABLE WITH IN REACH. ADVISED TO CALL IF SHE NEEDS ANYTHING.
--- NOTE | 2022-05-03 14:25 | NUR ---
SPOKE WITH CASE MANAGEMENT PT HAS CHAIR AT [facility]. AND IS TO RECEIVE DIALYSIS TOMORROW. TDC PLACEMENT AT [facility] TO BE DONE 05/08/22. THEN DIALYSIS AT [facility] ON 05/09/2022.
--- NOTE | 2022-05-03 19:00 | NUR ---
RECEIVED REPORT FROM NETTIE SIERRA.
--- NOTE | 2022-05-03 20:50 | NUR ---
PT ON BED WATCHING TV: A&O X3. EVEN AND UNLABORED RESPIRATIONS; CLEAR LUNG SOUNDS UPON AUSCULTATION. TELEMETRY IN PLACE. 3 LUMEN DIALYSIS PORT NOTED TO RT IJ. BKA TO LEFT EXTREMITY NOTED. PT REMAINS ON CONTACT PRECAUTIONS. . PT BS 181, COVERED WITH HUMALOG 1 UNIT, 20 UNITS OF LEVEMIR PER EMAR, SNACK PROVIDED. PT DENIES PAIN AT THIS TIME. SAFETY PRECAUTIONS IN PLACE WITH CALL LIGHT IN REACH.
[2022-05-04] VITALS (7 sets, daily range): BP systolic 142–160; BP diastolic 63–111
--- NOTE | 2022-05-04 00:30 | NUR ---
PT SLEEPING. NO DISTRESS OR PAIN NOTED. PT REMAINS ON CONTACT PRECAUTIONS. NO NEEDS AT THIS TIME. SAFETY PRECAUTIONS IN PLACE WITH CALL LIGHT IN REACH.
--- NOTE | 2022-05-04 04:30 | NUR ---
PT SLEEPING ON HIS LEFT SIDE. NO DISTRESS NOTED. PT DENIES PAIN AT THIS TIME. DRESSING PLACED TO LEFT STUMP: CDI. TELEMETRY IN PLACE. SAFETY PRECAUTIONS IN PLACE WITH CALL LIGHT IN REACH.
--- NOTE | 2022-05-04 08:00 | NUR ---
GOT REPORT FROM NUCLEAR REACTOR TECHNICIAN NURSE. PATIENT IS IN BED SITTING UP EATING BREAKFAST. PATIENT IS AOX3. PATIENT ASSESSED. PATIENT IS ON RA. PATIENT HAS A WOUND ON LEFT BKA THAT IS OPEN TO AIR. WOUND DRESSING HAD FELL OFF. WOUND REDRESSED AND SECURED. ADVISED PATIENT TO CALL AND INFORM ME IF THE DRESSING FALLS OFF AGAIN. PATIENT DENIES ANY SXS OF DISTRESS OR DISCOMFORT. BED ALARM ON, CALL LIGHT AND BEDSIDE TABLE WITH IN REACH. ADVISED TO CALL IF ANY QUESTIONS OR CONCERNS. PATIENT VERBALIZED UNDERSTANDING.
[2022-05-04 08:03] LABS: ALBUMIN 3.2 g/dL (3.2-5.0); CREATININE 4.7 mg/dL (0.7-1.3)
[2022-05-04] MEDS ORDERED: PHOSLO667 MG PO (12:09)
[2022-05-04] MEDS ORDERED: AMLODIPINE BESYL5 MG PO (12:09)
--- NOTE | 2022-05-04 12:30 | NUR ---
PATIENT LEFT ROOM FOR DIALYSIS.
--- NOTE | 2022-05-04 14:00 | NUR ---
PATIENT IS STILL IN DIALYSIS
--- NOTE | 2022-05-04 16:00 | NUR ---
PATIENT IS STILL IN DIALYSIS
--- NOTE | 2022-05-04 16:10 | NUR ---
DIALYSIS NOTE: START TIME: 1249 END TIME: 1606 TIME COMPLETED: 3 HOURS FLUID REMOVED: 2000ml PRE TX WEIGHT: 86.4 KG POST TX WEIGHT: 84.4 KG PRE TX VS: NIBP 160/111 mmHg HR 74 bpm RR 18/MIN T 97.8 F POST TX VS: NIBP 129/73 mmHg HR 78 bpm RR 18/MIN T 97.6 F HEP B ANTIGEN: NEGATIVE (04/29/22) HEP B ANTIBODY: NEGATIVE (04/29/22) VERIFIED INFORMED CONSENT SIGNED BY PATIENT AND DR. BERMUDEZ, WITNESSED BY Santosh ROSALES RN. LABS REVIEWED, ASSESMENT COMPLETED. ORDERS FOR HEMODIALYSIS OBTAINED FROM DR. BERMUDEZ. EDUCATION PROVIDED TO PATIENT. ACCESS: RIGHT IJ DOUBLE LUMEN CVC INSERTED 04/29/[address] AVALOS IN ED. CXR REVIEWED FOR PLACEMENT VERIFICATION. DRESSING IS C/D/I. ACCESSED PER [facility] HD CVC POLICY. FLUSHES EASILY WITH GOOD BLOOD RETURN. POST HD TX CVC FLUSHES EASILY WITH GOOD BLOOD RETURN. SALINE FLUSHED WITH 10ML PER LUMEN AND HEPLOCKED WITH 1.2ML HEPARIN 1000 UNITS/ML. TEGO CONNECTORS AND SWAB CAPS APPLIED TO EACH LUMEN. LUMEN CLAMPS ENGAGED. EXPOSED LUMEN WRAPPED WITH 4X4 GAUZE AND SECURED WITH PAPER TAPE. ASEPTIC TECHNIQUE MAINTAINED THROUGHOUT ACCESS AND DEACCESS PROCEDURES. MEDICATIONS ADMINISTERED: HEPARIN 3,000 UNITS LOADING DOSE, HEPARIN 1,000 UNIT /ML 1.2 ML FOR HEPLOCK TO EACH LUMEN. SEE E-MAR. ASSESMENT: PT A/OX3, NO APPARENT DISTRESS. VERBALIZES UNDERSTANDING OF PROVIDED DIALYSIS EDUCATION. NO GROSS EDEMA NOTED. RESPIRATIONS REGULAR AND UNLABORED. LUNGS CLEAR. NSR ON TELEMETRY. TABLO SERIAL #: [id number] DIALYZER/LOT #: [id number] CARTRIDGE LOT #: [id number] PH: 7.2 WATER TEMP: 71.4 R/O REJECTION: 99.1% EXPECTED CONDUCTIVITY: 13.9 ACTUAL CONDUCTIVITY: 13.8
--- NOTE | 2022-05-04 16:10 | NUR ---
POST HEMODIALYSIS PATIENT RETURNED TO ROOM 267 VIA WHEELCHAIR, ACCOMPANIED BY Santosh ROSALES RN. VERBAL REPORT AND WRITTEN HAND-OFF PROVIDED TO PRIMARY NURSE Grayson ALONSO RN. CARE OF PT SURRENDERED AT THIS TIME.
--- NOTE | 2022-05-04 16:12 | NUR ---
GOT REPORT FROM NURSE. I AM RESUMING CARE OF PATIENT. INTRODUCED MYSELF TO PATIENT. PATIENT IS IN BED, AOX3, ON RA. NO SXS OF DISTRESS. CALL LIGHT AND BEDSIDE TABLE WITH IN REACH AND BED ALARM IS ON. ADVISED TO CALL IF HE NEEDED ANYTHING. PATIENT VERBALIZED UNDERSTANDING.
--- NOTE | 2022-05-04 16:15 | NUR ---
R-IJ CVC DISCONTINUED UNDER ASEPTIC TECHNIQUE. D/C CVC BEFORE DISCHARGE HOME DISCUSSED WITH DR. DAVILA. PT TOLERATED PRCEDURE WELL. PRESSURE HELD UNTIL SITE CLOTTED. SITE IS FREE FROM S/S OF INFECTION. CATHETER TIP INTACT. DSD SECURED OVER SITE.
--- NOTE | 2022-05-04 16:44 | NUR ---
Discharge instructions given. Patient verbalizes understanding of same. Discharged in stable condition via Wheelchair to Home with family. All belongings sent with pt.
== END 2022-05-04 16:44 | DRG 682 ==
LOC: ED 11:37 → ED-I 12:20 → ED 15:29 → MS2 15:30
PROVIDERS: Family Medicine; Internal Medicine Nephrology; ADMIT Internal Medicine; ATTEND Internal Medicine
PROC: 02HV33Z Insertion of Infusion Device into Superior Vena Cava, Percutaneous Approach (ICD-10-PCS; principal; 2022-04-29)
PROC: 5A1D70Z Performance of Urinary Filtration, Intermittent, Less than 6 Hours Per Day (ICD-10-PCS; 2022-04-29)
PROC: 5A1D70Z Performance of Urinary Filtration, Intermittent, Less than 6 Hours Per Day (ICD-10-PCS; 2022-04-30)
PROC: 3E02340 Introduction of Influenza Vaccine into Muscle, Percutaneous Approach (ICD-10-PCS; 2022-05-01)
PROC: 0HDLXZZ Extraction of Left Lower Leg Skin, External Approach (ICD-10-PCS; 2022-05-01)
PROC: 5A1D70Z Performance of Urinary Filtration, Intermittent, Less than 6 Hours Per Day (ICD-10-PCS; 2022-05-02)
PROC: 5A1D70Z Performance of Urinary Filtration, Intermittent, Less than 6 Hours Per Day (ICD-10-PCS; 2022-05-04)
DX: N17.9 Acute kidney failure, unspecified (principal); L89.893 Pressure ulcer of other site, stage 3; C95.90 Leukemia, unspecified not having achieved remission; I12.0 Hypertensive chronic kidney disease with stage 5 chronic kidney disease or end stage renal disease; E87.20 Acidosis, unspecified; L97.829 Non-pressure chronic ulcer of other part of left lower leg with unspecified severity; L03.116 Cellulitis of left lower limb; N18.6 End stage renal disease; E11.22 Type 2 diabetes mellitus with diabetic chronic kidney disease; E87.5 Hyperkalemia; E11.40 Type 2 diabetes mellitus with diabetic neuropathy, unspecified; E11.51 Type 2 diabetes mellitus with diabetic peripheral angiopathy without gangrene; E11.621 Type 2 diabetes mellitus with foot ulcer; D63.1 Anemia in chronic kidney disease; N25.81 Secondary hyperparathyroidism of renal origin; T87.89 Other complications of amputation stump; B95.62 Methicillin resistant Staphylococcus aureus infection as the cause of diseases classified elsewhere; B96.4 Proteus (mirabilis) (morganii) as the cause of diseases classified elsewhere; Y83.6 Removal of other organ (partial) (total) as the cause of abnormal reaction of the patient, or of later complication, without mention of misadventure at the time of the procedure; Z99.2 Dependence on renal dialysis; Z86.16 Personal history of COVID-19; Z79.4 Long term (current) use of insulin; Z89.512 Acquired absence of left leg below knee; Z23 Encounter for immunization
CPT/HCPCS: J1644; J3475

== ENCOUNTER 2022-06-09 12:06 | Inpatient (IN) | payer MEDICARE, MEDICAID ==
[~2022-06-09] VITALS: Ht 185.4 cm; Wt 84.2 kg
[~2022-06-09 12:06] MED LIST changes: +BACTRIM1 TAB PO; +PHOSLO667 MG PO
--- NOTE | 2022-06-09 12:11 | NUR ---
PATIENT TO ROOM 15 VIA EMS
[2022-06-09 13:17] LABS: BASO% 0.2 % (0-3); HEMATOCRIT 30.4 % (39.0-50.0); IMMATURE GRANULOCYTES 0.3 % (0.0-5.0); LYMPH% 2.8 % (15-41); MEAN CELL VOLUME 87.1 fL CALC (80.0-100.0); MEAN CORPUSCULAR HGB 28.7 pG CALC (26.0-32.0); MEAN CORPUSCULAR HGB CONC 32.9 g/dL CAL (32.0-36.0); MONO% 5.3 % (2-13); NEUT# 16.34 thou/uL (1.82-7.42); NEUT% 91.4 % (42-76); RED BLOOD COUNT 3.49 mill/uL (4.70-6.10); RED CELL DISTRI WIDTH 13.4 % (11.5-15.5)
[2022-06-09 13:30] LABS: TOTAL PROTEIN 8.5 g/dL (6.3-8.2)
[2022-06-09 13:31] LABS: BILIRUBIN, TOTAL 0.9 mg/dL (0.0-1.4); CREATININE 5.5 mg/dL (0.7-1.3)
--- NOTE | 2022-06-09 14:29 | NUR ---
Reassessment of patient completed. No distress noted. Patient offered water.
--- NOTE | 2022-06-09 15:24 | NUR ---
PATIENT TO ROOM 279
[2022-06-09 15:35] VITALS: BP 122/71
[2022-06-09 15:36] VITALS: BP 122/71
[2022-06-09 19:21] VITALS: BP 148/77
--- NOTE | 2022-06-09 20:13 | NUR ---
RECIEVED REPORT. PT A/OX3. RESPRATIONS EVEN AND UNLABORED ON ROOM AIR. LUNG SOUNDS CLEAR. TELE MONITORING IN PLACE. BOWEL SOUNDS ACTIVE. #22G LEJ PATENT. SKIN INTACT. LEFT BKA NOTED, DRESSING TO BE CHANGED DUE TO BEING SOILED. PT DENIES OF ANY PAINS OR DISCOMFORTS. TEMP NOTED, TYLENOL ADMINISTERED. PT DENIES OF ANY ADDITIONAL NEEDS. ALL SAFTEY PRECAUTIONS ARE IN PLACE WITH CALL LIGHT IN REACH.
--- NOTE | 2022-06-09 22:29 | NUR ---
REASSESSMENT O0F TEMP RESULTING IN 99.7. DRESSING TO LLE CHANGED. DRY DRESSING WITH ADAPTIC FOAM APPLIED. NO OPEN WOUNDS NOTED. DRESSING REMAINS CDI.
[2022-06-09 23:43] VITALS: BP 126/60
[2022-06-10] VITALS (10 sets, daily range): BP systolic 103–147; BP diastolic 54–80
--- NOTE | 2022-06-10 00:46 | NUR ---
PT SLEEPING IN SEMI FOWLERS POSITION. RESPIRATIONS EVEN AND UNLABORED ON ROOMA IR. TELE MONITORING IN PLACE. #22G LEJ INFUSING WITH IVF ABX. NO S/S OF ANY DISTRESS. ALL SAFTEY PRECAUTIONS ARE IN PLACE WITH CALL LIGHT IN REACH
--- NOTE | 2022-06-10 04:36 | NUR ---
PT SLEEPING IN SEMI FOWLERS POSITION. RESPIRTIONS EVEN AND UNLABORED ON ROOM AIR. TELE MONITORING IN PLACE. IV SITE NOTED. DRSSING TO LLE CDI. NO SIGNS OF ANY DISTRESS. ALL SAFTEY PRECAUTIONS ARE IN PLACE WITH CALL LIGHT IN REACH
[2022-06-10 06:11] LABS: ALBUMIN 3.2 g/dL (3.2-5.0); BUN 45 mg/dL (9-20); CARBON DIOXIDE 24 mmol/l (22-30); CHLORIDE 100 mmol/l (95-108); GFR FOR AFR.AMER. 11 ML/MIN (>=60 (CALC)); GFR OTHER RACES 9 ML/MIN (>=60 (CALC)); POTASSIUM 4.1 mmol/l (3.5-5.1); SODIUM 134 mmol/l (137-146)
[2022-06-10 06:15] LABS: CREATININE 6.5 mg/dL (0.7-1.3)
--- NOTE | 2022-06-10 06:19 | NUR ---
CRITICAL CREATINE OF 6.5. MD AWARE OF TREND. SCHEDULED TO RECIEVE DIALYSIS TODAY.
--- NOTE | 2022-06-10 06:50 | NUR ---
REPORT FROM AMARIS SHORE. ASSUMED PT CARE.
--- NOTE | 2022-06-10 10:55 | NUR ---
DR. AUSTIN AT BEDSIDE.
--- NOTE | 2022-06-10 14:32 | NUR ---
PT RESTING IN BED. A&O X4. NO APPPARENT DISTRESS NOTED. PT DENIES ANY PAIN OR DISCOMFORT. ORANGE JUIVE PROVIDED UPON REQUEST. PT DENIES ANY OTHER CURRENT WANTS OR NEEDS. CALL LIGHT WITHIN REACH. WILL CONTINUE TO MONITOR.
--- NOTE | 2022-06-10 20:00 | NUR ---
REPORT RECEIVED FROM Alfonso JOHNSON RN, CARE OF PT ASSUMED AT THIS TIME. PT WEIGHED ON STANDING SCALE, 85.2 KG. TAKEN TO ROOM 286 FOR HEMODIALYSIS VIA WHEELCHAIR.
--- NOTE | 2022-06-10 20:00 | NUR ---
PATIENT RESTING IN BED AT THIS TIME-TO H/D VIA WHEELCHEEL FOR TREATMENT.
--- NOTE | 2022-06-10 20:06 | NUR ---
HEMODIALYSIS TREATMENT INITIATED AT 2006. SEE HEMODIALYSIS TREATMENT PROCESS INTERVENTION AND TABLO TREATMENT FLOWSHEET FOR TREATMENT SPECIFIC DETAILS.
--- NOTE | 2022-06-10 20:39 | NUR ---
TUNNELED CVC DRESSING CHANGE. RIGHT SUBCLAVIAN TUNNELED CATHETER WITH DRY GAUZE DRESSING SECURED BY PAPER TAPE, VISIBLY SOILED WITH DRIED EXUDATE AND DRESSING MOSTLY PEELED OFF. SOILED DRESSING REMOVED AND CATHETER INSERTION SITE CLEANSED. ONCE CRUSTED EXUDATE CLEARED FROM AROUND CATHETER INSERTION SITE NO ACTIVE DRAINAGE OR ERYTHEMA NOTED. PT DENIES ANY DISCOMFORT AROUND CATHETER. BILATERAL LUMENS PATENT AND FLUSH EASILY WITH GOOD BLOOD RETURN. CHG IMPREGNATED DISK PLACED AROUND CATHETER INSERTION SITE AND CENTRAL LINE DRESSING PLACED. ASEPTIC TECHNIQUE MAINTAINED THROUGHOUT.
--- NOTE | 2022-06-10 22:50 | NUR ---
BLOOD CULTURE AND VANCO TROUGH DRAWN PRIOR TO ADMINISTRATION OF VANCOMYCIN DOSE, GIVEN WITHIN LAST 30 MINUTES OF HEMODIALYSIS TREATMENT. UF ADJUSTED TO ADDITIONAL 500ML TO ACCOUNT FOR VANCO VOLUME. RX CONSULT TO CONCENTRATE IV MEDICATIONS WHEN POSSIBLE ORDERED.
--- NOTE | 2022-06-10 23:30 | NUR ---
HEMODIALYSIS TREATMENT COMPLETED AT 2330. SEE HEMODIALYSIS TREATMENT PROCESS INTERVENTION AND TABLO TREATMENT FLOWSHEET FOR TREATMENT SPECIFIC DETAILS.
--- NOTE | 2022-06-10 23:35 | NUR ---
PT RETURNED TO ROOM 279 VIA WHEELCHAIR. REPORT ENDORSED TO Alfonso JOHNSON RN, CARE OF PT SURRENDERED AT THIS TIME.
[2022-06-11] VITALS (8 sets, daily range): BP systolic 96–135; BP diastolic 50–72
--- NOTE | 2022-06-11 00:15 | NUR ---
PATIENT RETURNED FROM H/D VIA WHEELCHAIR. AWAKE ALERT AND ORIENTEDX3. RECEIVED REPORT FROM DINESH RN-H/D STAFF. 3LITER REMOVED FROM PATIENT DURING PROCEDURE. VANCO WAS GIVEN AND LABS WERE DDRAWN. DRESSING TO EXT H/D CATH INTACT. IV TO LEFT NECK INTACT AND PATENT. ZOSYN HUNG ORDERRED. VOIDED SMALL AMT OF ISAÍAS URINE IN URINAL. PATIENT ON CONTACT ISOLATION. SAFETY PRECAUTIONS REINFORCED. CALL LIGHT IN REACH, WILL CONT TO MONITOR.
--- NOTE | 2022-06-11 03:00 | NUR ---
RESTING IN BED POSITONED ON RIGHT SIDE. SHEETS AND BLANKET OVER HIS HEAD. RESPS ARE EVEN AND UNLABORED. CALL LIGHT IN REACH. WILL CONT TO MONITOR.
[2022-06-11 05:19] LABS: BASO% 0.3 % (0-3); EOS% 0.8 % (0-8); IMMATURE GRANULOCYTES 0.3 % (0.0-5.0); LYMPH% 10.5 % (15-41); MEAN CELL VOLUME 88.2 fL CALC (80.0-100.0); MEAN CORPUSCULAR HGB 28.4 pG CALC (26.0-32.0); MEAN CORPUSCULAR HGB CONC 32.2 g/dL CAL (32.0-36.0); MONO% 11.4 % (2-13); NEUT# 11.16 thou/uL (1.82-7.42); NEUT% 76.7 % (42-76); RED BLOOD COUNT 2.71 mill/uL (4.70-6.10); RED CELL DISTRI WIDTH 13.5 % (11.5-15.5)
[2022-06-11 05:23] LABS: HEMATOCRIT 23.9 % (39.0-50.0); HEMOGLOBIN 7.7 g/dl (14.0-18.0)
[2022-06-11 05:42] LABS: ALBUMIN 3.5 g/dL (3.2-5.0); BILIRUBIN, TOTAL 0.7 mg/dL (0.0-1.4); TOTAL PROTEIN 7.6 g/dL (6.3-8.2)
[2022-06-11 05:48] LABS: CREATININE 4.8 mg/dL (0.7-1.3)
--- NOTE | 2022-06-11 08:21 | NUR ---
SHIFT CHANGE REPORT, PT RESTING IN BED IN SUPINE POSITION, DENIES DISCOMFORT, VERY FLAT EFFECT, TELE MONITOR IN PLACE, CALL MILLER IN REACH AND BED LOCKED IN LOWEST POSITION.
--- NOTE | 2022-06-11 13:30 | NUR ---
PT REFUSING DIALYSIS TREATMENT THIS AFTERNOON. PT STATES "IT MAKES ME TOO WEAK WHEN I HAVE IT TWO DAYS IN A ROW". DISCUSSED WITH PT THAT LABS SUPPORTED HEMODIALYSIS TREATMENT AND TX COULD BE TAILORED TO MEET PATIENTS NEEDS IF HE BECAME SYMPTOMATIC. PT ADAMENTLY REFUSES. DIALYSIS COORDINATOR SMITA ROSALES RN INFORMED AND DISCUSSED RISK V BENEFITS OF TX WELL WITH PT. PT CONTINUES TO REFUSE. DR BERMUDEZ MADE AWARE BY DIALYSIS COORDINATOR. PTS PRIMARY NURSE , GIANCARLO ALSO MADE AWARE OF REFUSAL.
--- NOTE | 2022-06-11 15:16 | NUR ---
REFUSE DIALYSIS TODAY STATING HE HAD IT YESTERDAY, INFORMED OF LAB VALUES FOR RENAL FUNCTION BUT STILL REFUSED, HE IS ASKING ABOUT HIS INSULIN MEDICATION, ADVISED JERRY WOULD INVESTIGATE AND ADDRESS CONCERN
--- NOTE | 2022-06-11 15:47 | NUR ---
Patient did not want HD. Vanco level is 20. No dose needed at this time.
--- NOTE | 2022-06-11 16:00 | NUR ---
INSULIN CONCERNS ADDRESSED AND MD GAVE ORDERS, NO OTHER CONCERNS AT THIS TIME
--- NOTE | 2022-06-11 19:45 | NUR ---
RECEUIVED REPORT FROM DAYSNJFT NURSE. PT LAYING IN BED ON RT SIDE WITH LIGHTS OFF WATCHING TV. PT REFUSED FOR LIGHT TO BE TURNED ON. PT ASSESSMENT COMPLETED TO BEST OF ABILITY. 22 IN LEJ NOTED AND APPEARS HEALTHY. PT ON CONTECT FOR POSITIVE MRSA SWABS. CONTACT PRECAUTIONS IN PLACE. SAFETY PRECAUTIONS IN PLACE AND PT ENCOURAGED TO USE CALL LIGHT. CALL LIGHT WITHIN REACH.
--- NOTE | 2022-06-12 00:15 | NUR ---
pt had a bp of 96/50 @2352. nurse cora notified @3067.
--- NOTE | 2022-06-12 00:23 | NUR ---
PT IN BED LAYING SUPINE, SLEEPING. NO S/S OF DISTRESS. CALL LIGHT WITHIN REACH AND CONTACT PRECAUTIONS IN PLACE.
[2022-06-12 04:28] LABS: BASO% 0.4 % (0-3); EOS% 3.5 % (0-8); HEMATOCRIT 27.7 % (39.0-50.0); HEMOGLOBIN 9.1 g/dl (14.0-18.0); IMMATURE GRANULOCYTES 0.5 % (0.0-5.0); LYMPH% 14.8 % (15-41); MEAN CELL VOLUME 87.4 fL CALC (80.0-100.0); MEAN CORPUSCULAR HGB 28.7 pG CALC (26.0-32.0); MEAN CORPUSCULAR HGB CONC 32.9 g/dL CAL (32.0-36.0); MONO% 12.9 % (2-13); NEUT# 7.13 thou/uL (1.82-7.42); NEUT% 67.9 % (42-76); RED BLOOD COUNT 3.17 mill/uL (4.70-6.10); RED CELL DISTRI WIDTH 13.6 % (11.5-15.5)
[2022-06-12 04:35] VITALS: BP 132/73
[2022-06-12 04:35] LABS: ALBUMIN 3.5 g/dL (3.2-5.0); POTASSIUM 3.7 mmol/l (3.5-5.1)
[2022-06-12 04:41] LABS: CREATININE 7.9 mg/dL (0.7-1.3)
--- NOTE | 2022-06-12 04:46 | NUR ---
LAB CALLED WITH CRITICAL. RECEIVED RESULT FROM GERI Carlin CREATININE AT 79. PHYSICIAN ALREADY AWARE OF TREND. RESULTS DOCUMMENTED APPROPRIATELY.
[2022-06-12 06:33] VITALS: BP 117/67
--- NOTE | 2022-06-12 07:00 | NUR ---
Report received from overnight babysitter - pt in bed stable - no s/s distress - call light in reach
[2022-06-12 08:21] VITALS: BP 117/67
--- NOTE | 2022-06-12 11:00 | NUR ---
Pt resting in bed - denies any pain or discomfort - no s/s distress - call light in reach
[2022-06-12 11:44] VITALS: BP 136/75
[2022-06-12 12:11] VITALS: BP 136/75
[2022-06-12 14:31] VITALS: BP 116/74
--- NOTE | 2022-06-12 16:00 | NUR ---
Pt denies any pain or needs - no s/s distress- call light in reach
--- NOTE | 2022-06-12 16:06 | NUR ---
S: GABRIELA BELTRAN is a 56 M who presents with BACTERMIA . He has a history of MRSA HD PORT INFECTION, ESRD . All medications in patient's chart were reviewed. O: VS: BP 116/74 , P 68, RR 18 ,T 98 W <84kg>, HT 73IN, Scr= 7.9,CrCl= HD A: Blood culture SHOW MRSA which is sensitive to VANCOMYCIN. WOUND culture show MRSA which is sensitive to VANCOMYCIN. P: Patient is on VANCO . Vancomycin ordered for pharmacy to dose. PATIENT REFUSED HD ON 06/11 VANCO LEVEL WAS 20 NO DOSES NEEDED AT THIS TIME. Vancomycin goal trough is between 10-20 mcg/ml. Pharmacy will follow and or advise on antibiotics use as needed.
[2022-06-13 00:43] VITALS: BP 140/70
[2022-06-13 03:20] VITALS: BP 140/75
--- NOTE | 2022-06-13 04:48 | NUR ---
pt refused standing scale weight when asked this morning @8624. Nurse Kitty notified.
--- NOTE | 2022-06-13 05:09 | NUR ---
PT DECLINED WEIGHT THIS AM. EDUCATED PT ON REASON FOR DAILY WEIGHT AND HE CONTINUES TO DECLINE WEIGHT.
[2022-06-13 05:57] LABS: BASO% 0.4 % (0-3); HEMATOCRIT 25.2 % (39.0-50.0); HEMOGLOBIN 8.2 g/dl (14.0-18.0); IMMATURE GRANULOCYTES 0.8 % (0.0-5.0); LYMPH% 18.3 % (15-41); MEAN CELL VOLUME 86.9 fL CALC (80.0-100.0); MEAN CORPUSCULAR HGB 28.3 pG CALC (26.0-32.0); MEAN CORPUSCULAR HGB CONC 32.5 g/dL CAL (32.0-36.0); MONO% 10.3 % (2-13); NEUT# 6.89 thou/uL (1.82-7.42); NEUT% 66.2 % (42-76); RED BLOOD COUNT 2.9 mill/uL (4.70-6.10); RED CELL DISTRI WIDTH 13.6 % (11.5-15.5)
[2022-06-13 06:01] LABS: ALBUMIN 3.4 g/dL (3.2-5.0); POTASSIUM 3.9 mmol/l (3.5-5.1); TOTAL PROTEIN 7.6 g/dL (6.3-8.2)
[2022-06-13 06:17] LABS: BILIRUBIN, TOTAL 0.4 mg/dL (0.0-1.4)
[2022-06-13 06:42] VITALS: BP 134/77
[2022-06-13 07:50] VITALS: BP 134/77
--- NOTE | 2022-06-13 07:52 | NUR ---
0700 BEDSIDE REPORT RECEIVED FROM NETTIE SMITH. PT RESTING IN BED WITH EYES OPEN. NO COMPLAINTS VOICED. NO SIGNS OF DISTRESS NOTED. RESPIRATIONS EVEN AND UNLABORED. PT UPDATED ON POC, VERBALIZES UNDERSTANDING AND DENIES QUESTIONS. ALL PERSONAL ITEMS WITHIN REACH. SAFETY PRECAUTIONS IN PLACE.
--- NOTE | 2022-06-13 10:51 | NUR ---
CALLED IN A PHYSICIAN CONSULT FOR DR FORBES. I SPOKE WITH VIRIDIANA AT 1037 HRS.
--- NOTE | 2022-06-13 17:38 | NUR ---
PT RETURNED TO ROOM FROM OR. PT ALERT AND ORIENTED X4. NO C/O PAIN VOICED. NO SIGNS OF DISTRESS NOTED. PERMACATH TO RIGHT UPPER CHEST REMOVED AND DRESSING C/D/I. NO COMPLICATIONS NOTED. TEMP DIALYSIS CATH TO RIGHT NECK, NO COMPLICATIONS NOTED. PT ADVISED TO CALL BEFORE GETTING OOB. ALL PERSONAL ITEMS WITHIN REACH. SAFETY PRECAUTIONS IN PLACE. BEDSIDE REPORT RECEIVED FROM NETTIE VICTOR @ 6877.
--- NOTE | 2022-06-13 18:30 | NUR ---
PT TAKEN TO ROOM 286 FOR HEMODIALYSIS VIA WHEELCHAIR. REPORT RECEIVED FROM Alfonso YANCEY RN. CARE OF PT ASSUMED AT THIS TIME.
--- NOTE | 2022-06-13 18:45 | NUR ---
PRIOR TO ACCESS OF NEW RIGHT IJ CVC, CXR REVIEWED TO VERIFY PLACEMENT.
--- NOTE | 2022-06-13 18:46 | NUR ---
HEMODIALYSIS TREATMENT INITIATED AT 1846. SEE HEMODIALYSIS TREATMENT PROCESS INTERVENTION AND TABLO TREATMENT FLOWSHEET
--- NOTE | 2022-06-13 19:38 | NUR ---
OBSERVED PATIENT IN DIALYSIS WITH DIALYSIS NURSE. SLEEPING. NO SIGNS OF DISTRESS N0R PAIN NOTED.
--- NOTE | 2022-06-13 21:52 | NUR ---
PT C/O NAUSEA, PT HYPOTENSIVE, SEE NIBPS ON TABLO FLOW SHEET. FLUID REMOVAL STOPPED. ALBUMIN ADMINISTERED, TEMP DECREASED TO 35.5, NA INCREASED TO 145. ZOFRAN ADMINISTERED FOR NAUSEA. PT REPORT RELIEF OF SYMPTOMS. NIBP INCREASING. WILL CON'T TO MONITOR.
--- NOTE | 2022-06-13 22:12 | NUR ---
HEMODIALYSIS TREATMENT COMPLETED AT 2212. SEE HEMODIALYSIS TREATMENT PROCESS INTERVENTION AND TABLO TREATMENT FLOWSHEET FOR TREATMENT SPECIFIC DETAILS.
[2022-06-13 22:15] VITALS: BP 155/82
--- NOTE | 2022-06-13 22:17 | NUR ---
PATIENT RETURNED BACK TO ROOM FROM DIALYSIS. ALERT AND ORIENTED. ABLE TO MAKE NEEDS KNOWN. DENIES ANY PAIN. NO DISTRESS. ASSESSMENT COMPLETE. PATIENT RECEIVED SNACK AND DRINK. PATIENT SET UP IN ROOM. BED IN LOW POSITON. CALL MILLER IN REACH.
--- NOTE | 2022-06-13 22:20 | NUR ---
PT TAKEN BACK TO ROOM 279. REPORT ENDORSED TO Yasmani LEY RN AT BEDSIDE. CARE OF PT SURRENDERED AT THIS TIME.
[2022-06-14 00:01] VITALS: BP 148/77
--- NOTE | 2022-06-14 01:00 | NUR ---
PATIENT RESTING IN BED WITH HOB ELEVATED. NO COMPLAINTS VOICED. NO SIGNS OF DISTRESS NOTED. BLOOD CULTURES DRAWN PER ORDER. BED REMAINS IN LOW POSITION. CALL MILLER AND BELONGINGS IN REACH.
--- NOTE | 2022-06-14 04:00 | NUR ---
MORNING LABS DRAWN. PATIENT TOLERATED WELL. NO COMPLAINTS VOICED. NO DISTRESS. BED REMAINS IN LOW POSITION. CALL LIGHT AND BELONGINGS IN REACH.
[2022-06-14 04:26] VITALS: BP 108/64
[2022-06-14 06:33] LABS: BASO% 0.4 % (0-3); EOS% 1.8 % (0-8); HEMATOCRIT 25.4 % (39.0-50.0); HEMOGLOBIN 8.2 g/dl (14.0-18.0); IMMATURE GRANULOCYTES 4.1 % (0.0-5.0); LYMPH% 16.7 % (15-41); MEAN CELL VOLUME 86.7 fL CALC (80.0-100.0); MEAN CORPUSCULAR HGB CONC 32.3 g/dL CAL (32.0-36.0); MONO% 6.8 % (2-13); NEUT# 9.01 thou/uL (1.82-7.42); NEUT% 70.2 % (42-76); RED BLOOD COUNT 2.93 mill/uL (4.70-6.10); RED CELL DISTRI WIDTH 13.5 % (11.5-15.5)
[2022-06-14 06:44] LABS: ALBUMIN 3.7 g/dL (3.2-5.0); POTASSIUM 4.2 mmol/l (3.5-5.1); TOTAL PROTEIN 7.5 g/dL (6.3-8.2)
[2022-06-14 06:46] LABS: BILIRUBIN, TOTAL 0.2 mg/dL (0.0-1.4); CREATININE 7.5 mg/dL (0.7-1.3)
[2022-06-14 07:02] VITALS: BP 120/71
--- NOTE | 2022-06-14 07:40 | NUR ---
0700 BEDSIDE REPORT RECEIVED FROM NETTIE GRIFFIN. PT RESTING IN BED WITH EYES CLOSED. NO SIGNS OF DISTRESS NOTED. RESPIRATIONS EVEN/UNLABORED. ALL PERSONAL ITEMS WITHIN REACH. SAFETY PRECAUTIONS IN PLACE.
[2022-06-14 11:09] VITALS: BP 133/71
--- NOTE | 2022-06-14 14:39 | NUR ---
S: GABRIELA BELTRAN is a 56 M who presents with MRSA BACTEREMIA. O: VS: BP 133/71, P 76, RR 21,T 98.3 W 83.6 kg, HT 73 in, SCr: 7.5, ESRD on hemodialysis Vancomycin trough 06/13@1028: 15 A: Blood culture is growing MRSA which is sensitive to vancomycin. P: Patient received vancomycin 1500 mg IV loading dose on 06/10. Vancomycin ordered for pharmacy to dose. Start Vancomycin 1 g IV 3x weekly post hemodialysis. Vancomycin trough is drawn before the next hemodialysis on 06/15/22. Vancomycin goal trough is between 15-20 mcg/ml. Pharmacy will follow and or advise on antibiotics use as needed.
[2022-06-14 16:03] VITALS: BP 125/67
[2022-06-14 19:27] VITALS: BP 146/77
--- NOTE | 2022-06-14 19:50 | NUR ---
PATIENT RESTING IN BED WITH HOB ELEVATED. ALERT AND ORIENTED. ABLE TO MAKE NEEDS KNOWN. ASSESSMENT COMPLETE. DENIES ANY PAIN. NO DISTRESS NOTED. BED REMAINS IN LOW POSITION. CALL MILLER AND BELONGINGS IN REACH.
--- NOTE | 2022-06-15 00:10 | NUR ---
PATIENT RESTING IN BED. NO COMPLAINTS VOICED AT THIS TIME. REMAINS ON ISOLATION PRECAUTIONS. BED REMAINS IN LOW POSITION. CALL MILLER IN REACH.
[2022-06-15 00:24] VITALS: BP 124/77
--- NOTE | 2022-06-15 05:00 | NUR ---
PATIENT LABS DRAWN PER ORDERS. PATIENT TOLERATED WELL. DENIES NEEDING ANYTHING AT THIS TIME. BED REMAINS IN LOW POSITION. CALL MILLER IN REACH.
[2022-06-15 05:04] VITALS: BP 132/72
--- NOTE | 2022-06-15 05:27 | NUR ---
PATIENT REFUSED TO DO DAILY WEIGHT, PATIENT SAID HE WOULD BE WILLING TO DO IT BEFORE BREAKFAST. NURSE NOTIFIED.
[2022-06-15 05:50] LABS: ALBUMIN 3.4 g/dL (3.2-5.0); BASO% 0.4 % (0-3); BILIRUBIN, TOTAL 0.2 mg/dL (0.0-1.4); HEMATOCRIT 24.6 % (39.0-50.0); HEMOGLOBIN 8.2 g/dl (14.0-18.0); LYMPH% 22.8 % (15-41); MEAN CELL VOLUME 86.9 fL CALC (80.0-100.0); MEAN CORPUSCULAR HGB CONC 33.3 g/dL CAL (32.0-36.0); MONO% 8.6 % (2-13); NEUT# 6.88 thou/uL (1.82-7.42); NEUT% 57.7 % (42-76); POTASSIUM 3.9 mmol/l (3.5-5.1); RED BLOOD COUNT 2.83 mill/uL (4.70-6.10); RED CELL DISTRI WIDTH 13.6 % (11.5-15.5); TOTAL PROTEIN 7.3 g/dL (6.3-8.2)
[2022-06-15 06:15] LABS: IMMATURE GRANULOCYTES 5.5 % (0.0-5.0)
--- NOTE | 2022-06-15 06:43 | NUR ---
INFORMED COURT CLERK OF PATIENTS CRITICAL CREATININE OF 10.0. NO NEW ORDERS. ALSO INFORMED PROVIDER OF PATIENT REFUSING DAILY WEIGHT THIS MORNING.
[2022-06-15 07:00] VITALS: BP 137/77
--- NOTE | 2022-06-15 07:39 | NUR ---
0700 BEDSIDE REPORT RECEIVED FROM NETTIE GRIFFIN. PT RESTING IN BED WITH EYES CLOSED. RESPIRATIONS EVEN AND UNLABORED. NO SIGNS OF DISTRESS NOTED. ALL PERSONAL ITEMS WITHIN REACH. SAFETY PRECAUTIONS IN PLACE.
--- NOTE | 2022-06-15 10:45 | NUR ---
BOOKED A INFECTIOUS DISEASE CONSULT WITH DR TORRES [facility]IA [facility].
[2022-06-15 11:26] VITALS: BP 149/78
--- NOTE | 2022-06-15 11:32 | NUR ---
COMPLETED AN INFECTIOUS DISEASE CONSULT WITH DR TORRES [facility]IA [facility] @ 3279 HRS.
--- NOTE | 2022-06-15 14:00 | NUR ---
PT TAKEN TO ROOM 286 FOR HEMODIALYSIS VIA WHEELCHAIR. REPORT RECEIVED FROM Alfonso YANCEY RN. CARE OF PT ASSUMED AT THIS TIME.
--- NOTE | 2022-06-15 14:15 | NUR ---
HEMODIALYSIS TREATMENT INITIATED AT 1415. SEE HEMODIALYSIS TREATMENT PROCESS INTERVENTION AND TABLO TREATMENT FLOWSHEET FOR TREATMENT SPECIFIC DETAILS.
--- NOTE | 2022-06-15 15:50 | NUR ---
PT TAKEN BACK TO ROOM 279. REPORT ENDORSED TO Alfonso YANCEY RN AT BEDSIDE. CARE OF PT SURRENDERED AT THIS TIME.
--- NOTE | 2022-06-15 16:22 | NUR ---
VANCO TROUGH IS 20. WE WILL GIVE VANCO 1 GRAM IV AFTER HD ON 06/15/22. NEXT TROUGH WILL BE BEFORE NEXT HD ON 06/18/22
--- NOTE | 2022-06-15 17:37 | NUR ---
HEMODIALYSIS TREATMENT COMPLETED AT 1737. SEE HEMODIALYSIS TREATMENT PROCESS INTERVENTION AND TABLO TREATMENT FLOWSHEET FOR TREATMENT SPECIFIC DETAILS.
[2022-06-15 17:40] VITALS: BP 156/82
--- NOTE | 2022-06-15 17:45 | NUR ---
RIGHT IJ CVC DRESSING CHANGED PER [facility] POLICY.
[2022-06-15 19:12] VITALS: BP 112/58
--- NOTE | 2022-06-15 20:30 | NUR ---
RECIEVED REPORT. PT RESTING IN SEMI FOWLERS POSITION. NO DISTRESS NOTED. ALL SAFTEY PRECAUTIONS IN PLACE WITH CALL LIGHT INR EACH
--- NOTE | 2022-06-15 21:00 | NUR ---
PT RESTING IN SEMI FOWLERS POSITION. PT A/OX3. RESPIRATIONS EVEN AND UNLABORED ON ROOM AIR. LUNG SOUNDS CLEAR. HEART RHYTHM NORMAL. BOWEL SOUNDS ACTIVE. RIJ TRIPLE LUMEN/DIALYSIS CATH NOTED. MEDICATION LUMEN PATENT. TRACE EDEMA NOTED TO RLE. LEFT BKA NOTED. PT C/O OF CRAMPING IN BLE, REFUSED TYLENOL. PT DENIES OF ANY ADDITIONAL NEEDS. ALL SAFTEY PRECAUTIONS ARE IN PLACE WITH CALL LIGHT IN REACH
--- NOTE | 2022-06-16 00:41 | NUR ---
PT RESTING IN SEMI FOWLERS POSITION WATCHING TV. RESPIRATIONS EVEN AND UNLABORED ON ROOMA IR. TELE MONITORING IN PLACE. RIJ NOTED, DRESSING CDI. PT DENIES OF ANY PAINS OR DISOCOMFORTS. ALL SAFTEY PRECAUTIONS ARE IN PLACE WITH CALL LIGHT IN REACH
[2022-06-16 00:42] VITALS: BP 137/66
--- NOTE | 2022-06-16 04:25 | NUR ---
PT SLEEPING IN SEMI FOWLERS POSITION. RESPRIATIONS EVEN AND UNLABORED ON ROOM AIR. [place] MONITOR[place] [facility] [place] NOTED. NO SIGNS OF ANY PAINS OR DISCOMFORTS. ALL SAFTEY PRECAUTIONS ARE IN PLACE WITH CALL LIGHT IN REACH
[2022-06-16 04:27] VITALS: BP 120/59
--- NOTE | 2022-06-16 05:06 | NUR ---
PATIENT REFUSED DAILY WEIGHT NURSE NOTIFIED
--- NOTE | 2022-06-16 05:09 | NUR ---
PT REFUSING WEIGHT AT THIS TIME.
[2022-06-16 05:15] LABS: BASO% 0.5 % (0-3); EOS% 3.7 % (0-8); HEMATOCRIT 26.2 % (39.0-50.0); HEMOGLOBIN 8.5 g/dl (14.0-18.0); LYMPH% 23.9 % (15-41); MEAN CELL VOLUME 87.3 fL CALC (80.0-100.0); MEAN CORPUSCULAR HGB 28.3 pG CALC (26.0-32.0); MEAN CORPUSCULAR HGB CONC 32.4 g/dL CAL (32.0-36.0); MONO% 8.6 % (2-13); NEUT# 7.37 thou/uL (1.82-7.42); NEUT% 56.3 % (42-76); RED CELL DISTRI WIDTH 13.9 % (11.5-15.5)
[2022-06-16 05:47] LABS: MAGNESIUM 1.7 mg/dL (1.6-2.3); POTASSIUM 4.6 mmol/l (3.5-5.1)
--- NOTE | 2022-06-16 05:49 | NUR ---
CRITCALLY HIGH CREATINE OF 7.8. MD AWARE OF TREND, PT DIALYSIS.
[2022-06-16 05:50] LABS: CREATININE 7.8 mg/dL (0.7-1.3)
[2022-06-16 06:44] VITALS: BP 120/59
--- NOTE | 2022-06-16 08:00 | NUR ---
PATIENT IN BED SLEEPING. CALL LIGHT IN REACH SAFETY MEASURES IN PLACE. NO IMMEDIATE NEEDS AT THIS TIME.
--- NOTE | 2022-06-16 12:15 | NUR ---
PATIENT IN BED. VITAL SIGNS STABLE. SAFETY MEASURES IN PLACE. NO IMMEDIATE NEEDS AT THIS TIME.
--- NOTE | 2022-06-16 17:14 | NUR ---
PATIENT IN BED SLEEPING. VITAL SIGNS STABLE. NO IMMEDIATE NEEDS AT THIS TIME. SAFETY MEASURES ARE IN PLACE.
[2022-06-16 19:00] VITALS: BP 138/76
[2022-06-16 19:13] VITALS: BP 138/76
--- NOTE | 2022-06-16 21:50 | NUR ---
PT IN BED WATCHING TV. DENIES PAIN OR DISCOMFORT. NO S/S OF DISTRESS NOTED. CALL LIGHT IN REACH AND BED IN LOWEST POSITION.
[2022-06-16 23:30] VITALS: BP 146/75
[2022-06-17] VITALS (7 sets, daily range): BP systolic 125–146; BP diastolic 72–78
--- NOTE | 2022-06-17 00:55 | NUR ---
PT IN NBED RESTING WITH EYES CLOSED BREATHING EVEN AND UNLABORED. NO S/S OF DISTRESS NOTED. CALL LIGHT IN REACH AND BED IN LOWEST POSITION.
--- NOTE | 2022-06-17 05:25 | NUR ---
Pt was asked to get daily weight this morning, pt refused, pt stated "It was a rough night, last night I don't want too." I asked him twice and still refused. The nurse was notified.
--- NOTE | 2022-06-17 05:35 | NUR ---
PT REFUSED DAILY WEIGHT. PT STATES I HAD A ROUGHT NIGHT.
--- NOTE | 2022-06-17 08:20 | NUR ---
PATIENT AWAKE AND ORIENTATED. DENIES PAIN AT THIS TIME. VITAL SIGNS STABLE. SAFTEY MEASURES ARE IN PLACE.
--- NOTE | 2022-06-17 12:41 | NUR ---
PATIENT IN AWAKE AND IN BED. COMPLAINS OF A HEADACHE. PRN MEDICATION PROVIDED. NO ADDITIONAL NEEDS AT THIS TIME. VITAL SIGNS ARE STABLE. SAFTEY MEASURES ARE IN PLACE.
--- NOTE | 2022-06-17 16:48 | NUR ---
PATIENT IN BED. DENIES PAIN. VITAL SIGNS STABLE. SAFETY MEASURES IN PLACE NO ADDITIONAL NEEDS AT THIS TIME.
--- NOTE | 2022-06-17 20:50 | NUR ---
PT RESTING IN BED WATCHING TV. ASSESSMENT COMPLETED. DENIES PAIN OR DISCOMFORT. NO S/S OF DISTRESS NOTED. CALL LIGHT IN REACH AND BED IN LOWEST POSITION.
[2022-06-18] VITALS (9 sets, daily range): BP systolic 131–161; BP diastolic 73–83
--- NOTE | 2022-06-18 00:45 | NUR ---
PT IN BED WAATCHING TV. DENIESPAIN OR DISCOMFORT. CALL LIGHT IN REACH AND BED IN LOWEST POSITION.
--- NOTE | 2022-06-18 04:35 | NUR ---
PT IN BED AWAKE BREATHING IN EVEN AND UNLABORED. NO S/S OF DISTRESS NOTED. DENIES PAIN OR DISCOMFORT. CALL LIGHT IN REACH AND BED IN LOWEST POSITION.
[2022-06-18 05:33] LABS: BASO% 0.4 % (0-3); EOS% 3.6 % (0-8); HEMATOCRIT 26.5 % (39.0-50.0); HEMOGLOBIN 8.8 g/dl (14.0-18.0); IMMATURE GRANULOCYTES 4.1 % (0.0-5.0); LYMPH% 23.6 % (15-41); MEAN CELL VOLUME 87.2 fL CALC (80.0-100.0); MEAN CORPUSCULAR HGB 28.9 pG CALC (26.0-32.0); MEAN CORPUSCULAR HGB CONC 33.2 g/dL CAL (32.0-36.0); MONO% 7.2 % (2-13); NEUT# 6.19 thou/uL (1.82-7.42); NEUT% 61.1 % (42-76); RED BLOOD COUNT 3.04 mill/uL (4.70-6.10); RED CELL DISTRI WIDTH 14.3 % (11.5-15.5)
[2022-06-18 05:57] LABS: CREATININE 11.6 mg/dL (0.7-1.3)
--- NOTE | 2022-06-18 07:30 | NUR ---
RECIEVED REPORT FROM HYDRATOR NURSE. PT NOTED IN BED LAYING ON RT SIDE. PT IS A/OX3, DENIES ANY PAIN. PT BLOOD SUGAR AT 0600 WAS 102. NO HUMALOG GIVEN PER SLIDING SCALE, PT INFORMED. PT HAS BKA ON L LEG NOTED. NO OPEN WOUNDS PRESENT. RT IJ TRIPLE LUMEN NOTED. TELEMONITOR ON PT. CALL LIGHT WITHIN REACH AND SAFETY PRECAUTIONS IN PLACE.
--- NOTE | 2022-06-18 11:55 | NUR ---
PT LAYING IN BED HIGH FOWLERS, EATING LUNCH AND WATCHING TV. PT ENCOURAGED TO EAT ADEQUATE AMOUNT TO KEEP BLOOD GLUCOSE WITHIN NORMAL. PT DENIES ANY PAIN. 1100 HUMALOG PER EMAR WAS NOT GIVEN DUE TO SLIDING SCALE. CALL LIGHT WITHIN REACH AND SAFETY PRECAUTIONS IN PLACE.
--- NOTE | 2022-06-18 17:05 | NUR ---
PT LAYING IN BED ON LEFT SIDE. NO S/S OF DISTRESS. PT DENIES ANY PAIN. CALL LIGHT WITHIN REACH AND SAFETY PRECAUTIONS IN PLACE.
--- NOTE | 2022-06-18 21:30 | NUR ---
PATIENT RESTING IN BED WATCHING TV. AWAKE ALERT AND ORIENTEDX3. PATIENT FRUSTRATED WITH PROLONGED HOSPITALIZATION. WAITING TO GET ECHO DONE TO FURTHER EVAL NEEDS. PATIENT ON ISOLATION FOR MRSA. TELE MONITOR IN PLACE WITH LAST READING SR-73. PATIENT WITH RIGHT NECK H/D CATH INTACT AND HEALTHY WITH GOOD BLOOD RETURN FROM IV PORT. GLUCOSE MONITOR WAS 131-PROVIDED WITH HS SNACK AND MEDICATED WITH LEVEMIR ORDERED. NO HUMALOG AT THIS TIME PER SLIDING SCALE PROTOCOL. SAFETY PRECAUTIONS REINFORCED. CALL LIGHTIN REACH. WILL CONT TO MONITOR.
--- NOTE | 2022-06-19 00:19 | NUR ---
PATIENT RESTING IN BED-VOIDED 400CC OF YELLOW URINE IN URINAL. RFEMAINS ON TELE. H/D CATH REMAINS IN PLACE TO RIGHT NECK. CALL LIGHT IN REACH.WILL CONT TO MONITOR.
--- NOTE | 2022-06-19 04:15 | NUR ---
PATIENT RESTING IN BED-EASY TO AROUSE. LAB WORK DRAWN WITHOUT ANY DIFFICULTY FROM RIGHT TLC-GOOD BLOOD RETURN. FLUSHED PER PROTOCOL. TELE MONITOR IN PLACE. NO COMPLAINTS AT THIS TIME. CALL LIGHT IN REACH. WILL CONT TO MONITOR.
[2022-06-19 05:15] VITALS: BP 134/63
[2022-06-19 05:22] LABS: BASO% 0.3 % (0-3); EOS% 3.6 % (0-8); HEMATOCRIT 25.8 % (39.0-50.0); HEMOGLOBIN 8.4 g/dl (14.0-18.0); IMMATURE GRANULOCYTES 2.1 % (0.0-5.0); LYMPH% 21.8 % (15-41); MEAN CELL VOLUME 88.4 fL CALC (80.0-100.0); MEAN CORPUSCULAR HGB 28.8 pG CALC (26.0-32.0); MEAN CORPUSCULAR HGB CONC 32.6 g/dL CAL (32.0-36.0); MONO% 6.7 % (2-13); NEUT# 7.19 thou/uL (1.82-7.42); NEUT% 65.5 % (42-76); RED BLOOD COUNT 2.92 mill/uL (4.70-6.10); RED CELL DISTRI WIDTH 14.6 % (11.5-15.5)
[2022-06-19 05:42] LABS: ALBUMIN 3.7 g/dL (3.2-5.0); BILIRUBIN, TOTAL 0.2 mg/dL (0.0-1.4); TOTAL PROTEIN 8.2 g/dL (6.3-8.2)
[2022-06-19 05:59] LABS: CREATININE 12.5 mg/dL (0.7-1.3); POTASSIUM 5.5 mmol/l (3.5-5.1)
--- NOTE | 2022-06-19 05:59 | NUR ---
Patient refused weight this morning, stated he would do it later, explained to patient weight needed to be done before breakfast. Nurse notifed and passed on to oncoming LODE MINER BLASTING.
--- NOTE | 2022-06-19 06:06 | NUR ---
RECIEVED CALL FROM ED IN LAB WITH CRITICAL LAB VALUE CREAT 12.5. PATIENT IS ESRD ON H/D AND SCHEDULED FOR TREATMENT TODAY. MD WAS NOT CALLED AND IS AWARE OF THE TREND. WILL CONT TO MONITOR.
[2022-06-19 08:15] VITALS: BP 148/81
[2022-06-19 10:49] VITALS: BP 155/75
--- NOTE | 2022-06-19 15:19 | NUR ---
DIALYSIS PRE: PT RECEIVED ON WHEELCHAIR WITH NETBACKUP ENGINEER, PT STABLE, ALERT, NO C/O'S, LUNGS CLEAR, NO EDEMA NOTED, DIALYSIS ORDERS RECEIVED BY DR. BERMUDEZ. PT EDUCATED ABOUT PROCEDURE, PT DENIES ANY PAIN, PT WITH RIJ, DRESSING AND TEGOS CHANGED, TX STARTED UNDER ASEPTIC TECHNIQUES, [employer]ARGET SET TO 1 LT NEELIMA, REPORT RECEIVED BY HIS PRIMARY RN, PT IS NOT ON ISO ANYMORE. BF 300 ML/HR DUE [facility]. VSS. MACHINE #- [id number] CARTRIDGE LOT- [id number] LOT- [id number] PH- 7.2 CON ACT- 13.9 COND EXP- 13.9 WATER TEMP- 80.2 F
--- NOTE | 2022-06-19 18:15 | NUR ---
DIALYSIS POST: BLOOD RETURNED UNDER ASEPTIC TECHNIQUES, 1.5 LS REMOVED W/O PROBLEMS, PT STABLE, ALERT, NO C/O'S, DENIES ANY PAIN, PT BACK TO HIS ROOM ON WHEELCHAIR. REPORT GIVEN TO HIS PRIMARY RN.
[2022-06-19 18:17] VITALS: BP 144/86
[2022-06-19 19:12] VITALS: BP 132/68
--- NOTE | 2022-06-19 20:00 | NUR ---
PATIENT RESTING IN BED WITH VISITORS AT BEDSIDE. AWAKE ALERT AND ORIENTEDX3. PATIENT WITH NO COMPLAINTS AT THIS TIME. RIGHT NECK TLC-H/D CATH INTACT. TELE MONITOR IN PLACE. HAD ECHO DONE TODAY-ANXIOUS TO GET HOME. LUNGS ARE CLEAR. ABD IS SOFT. HAD H/D TODAY WELL. MMORE TALKATIVE TONIGHT. CALL LIGHT IN REACH. WILL CONT TO MONITOR.
[2022-06-20] VITALS (8 sets, daily range): BP systolic 110–142; BP diastolic 56–79
--- NOTE | 2022-06-20 00:27 | NUR ---
RESTING IN BED-POSITIONED ON RIGHT SIDE. EYES ARE CLOSED AND RESPS ARE EVEN AND UNLABORED. TELE MONITOR IN PLACE. CALL LIGHT IN REACH. WILL CONT TO MONITOR.
--- NOTE | 2022-06-20 05:00 | NUR ---
RESTING IN BED-LAB WORK DRAWN FROM RIGHT TLC WITHOUT ANY DIFFICULTY BY NEHA SHEFFIELD. FLUSHED PER PROTOCOL. CALL LIGHT IN REACH. WILL CONT TO MONITOR.
[2022-06-20 06:30] LABS: BASO% 0.4 % (0-3); EOS% 3.1 % (0-8); HEMATOCRIT 27.1 % (39.0-50.0); HEMOGLOBIN 8.7 g/dl (14.0-18.0); IMMATURE GRANULOCYTES 0.8 % (0.0-5.0); LYMPH% 19.4 % (15-41); MEAN CELL VOLUME 88.9 fL CALC (80.0-100.0); MEAN CORPUSCULAR HGB 28.5 pG CALC (26.0-32.0); MEAN CORPUSCULAR HGB CONC 32.1 g/dL CAL (32.0-36.0); MONO% 6.3 % (2-13); NEUT# 7.48 thou/uL (1.82-7.42); RED BLOOD COUNT 3.05 mill/uL (4.70-6.10); RED CELL DISTRI WIDTH 14.5 % (11.5-15.5)
[2022-06-20 06:47] LABS: ALBUMIN 3.8 g/dL (3.2-5.0); BILIRUBIN, TOTAL 0.2 mg/dL (0.0-1.4); TOTAL PROTEIN 8.5 g/dL (6.3-8.2)
--- NOTE | 2022-06-20 07:00 | NUR ---
REPORT FROM WILLIAMS SHEFFIELD. ASSUMED PT CARE.
[2022-06-20 07:13] LABS: CREATININE 9.3 mg/dL (0.7-1.3)
--- NOTE | 2022-06-20 13:30 | NUR ---
REPORT RECEIVED FROM Maira LOMELI RN, PT TO ROOM 286 FOR HEMODIALYSIS TREATMENT.
--- NOTE | 2022-06-20 13:34 | NUR ---
HEMODIALYSIS TREATMENT INITIATED AT 1334. SEE HEMODIALYSIS TREATMENT PROCESS INTERVENTION AND TABLO TREATMENT FLOWSHEET FOR TREATMENT SPECIFIC DETAILS.
--- NOTE | 2022-06-20 13:34 | NUR ---
HEMODIALYSIS TREATMENT INITIATED AT 1334. SEE HEMODIALYSIS TREATMENT PROCESS INTERVENTION AND TABLO TREATMENT FLOWSHEET FOR TREATMENT SPECIFIC DETAILS.
--- NOTE | 2022-06-20 15:00 | NUR ---
Nursing reported pt at dialysis this pm.
--- NOTE | 2022-06-20 15:35 | NUR ---
NOTIFIED PHARMACY OF VANCO TROUGH RESULTS.
--- NOTE | 2022-06-20 15:54 | NUR ---
POINT OF CARE GLUCOSE 121mg/dl.
--- NOTE | 2022-06-20 17:01 | NUR ---
HEMODIALYSIS TREATMENT COMPLETED AT 1701. SEE HEMODIALYSIS TREATMENT PROCESS INTERVENTION AND TABLO TREATMENT FLOWSHEET FOR TREATMENT SPECIFIC DETAILS.
--- NOTE | 2022-06-20 17:05 | NUR ---
PT ENDORSED TO Maira LOMELI RN, PT RETURNED TO ROOM 279.
--- NOTE | 2022-06-20 19:30 | NUR ---
PATIENT RESTING IN BED WATCHING TV. ALERT AND ORIENTED. ABLE TO MAKE NEEDS KNOWN. ASSESSMENT COMPLETE. DENIES ANY PAIN. NO DISTRESS NOTED. BED REMAINS IN LOW POSITION. CALL MILLER AND BELONGINGS IN REACH.
--- NOTE | 2022-06-20 23:40 | NUR ---
PATIENT RESTING IN BED. NO COMPLAINTS VOICED. NO DISTRESS NOTED. REMAINS ALERT AND ABLE TO MAKE NEEDS KNOWN. BED REMAINS IN LOW POSITION. CALL MILLER IN REACH.
[2022-06-21] VITALS (8 sets, daily range): BP systolic 95–152; BP diastolic 48–89
--- NOTE | 2022-06-21 04:15 | NUR ---
PATIENT RESTING IN BED. NO COMPLAINTS VOICED AT THIS TIME. ABLE TO MAKE NEEDS KNOWN. DENIES ANY PAIN. NO DISTRESS OBSERVED. BED REMAINS IN LOW POSITION. CALL MILLER IN REACH.
--- NOTE | 2022-06-21 05:11 | NUR ---
pt refused daily weight, nurse notified
--- NOTE | 2022-06-21 05:13 | NUR ---
PATIENT REFUSED DAILY WEIGHT.
[2022-06-21 06:02] LABS: BASO% 0.4 % (0-3); EOS% 3.2 % (0-8); HEMATOCRIT 27.5 % (39.0-50.0); HEMOGLOBIN 8.8 g/dl (14.0-18.0); IMMATURE GRANULOCYTES 0.7 % (0.0-5.0); MEAN CELL VOLUME 89.6 fL CALC (80.0-100.0); MEAN CORPUSCULAR HGB 28.7 pG CALC (26.0-32.0); MONO% 6.6 % (2-13); NEUT# 8.44 thou/uL (1.82-7.42); NEUT% 69.1 % (42-76); RED BLOOD COUNT 3.07 mill/uL (4.70-6.10); RED CELL DISTRI WIDTH 14.7 % (11.5-15.5)
[2022-06-21 06:25] LABS: ALBUMIN 3.9 g/dL (3.2-5.0); BILIRUBIN, TOTAL 0.2 mg/dL (0.0-1.4); TOTAL PROTEIN 8.8 g/dL (6.3-8.2)
[2022-06-21 07:00] LABS: POTASSIUM 5.2 mmol/l (3.5-5.1)
--- NOTE | 2022-06-21 10:33 | NUR ---
PATIENT RESTING STATED NO PAIN. ALL QUESTIONS ANSWERED. WILL CONTINUE TO MONITOR.
--- NOTE | 2022-06-21 13:06 | NUR ---
S: GABRIELA BELTRAN is a 56 M who presents with MRSA bacteremia. O: VS: BP 129/72, P 76, RR 18,T 97.5 W 83.6kg, HT 73 in, ESRD on hemodialysis Pre-hemodialysis vancomycin trough 06/20/22 = 22 A: Vancomycin trough is supratherapeutic. Decrease in dose is warranted. P: Patient is on vancomycin 1 g IV 3x/weekly following hemodialysis. Vancomycin ordered for pharmacy to dose. Decrease Vancomycin to 750 mg IV post-hemodialysis. Vancomycin trough is drawn before HD on 06/22/22. Vancomycin goal trough is between 15-20 mcg/ml. Pharmacy will follow and or advise on antibiotics use as needed.
--- NOTE | 2022-06-21 14:22 | NUR ---
Pt resting in bed watching TV, reported being up moving in room. Stated he was doing ok, going home tomorrow and did not need therapy. No treatment given.
--- NOTE | 2022-06-21 15:32 | NUR ---
PATIENT FEELING DOWN WANTING TO GO HOME. REPORTS NO PAIN. WILL CONTINUE TO MONITOR.
--- NOTE | 2022-06-21 20:00 | NUR ---
RECEIVED REPORT FROM DAY SHIFT RN. PT IS RESTING IN BED IN SUPINE POSITION, AWAKE. PT IS A&OX3, ABLE TO COMMUNICATE NEEDS WITH STAFF, PT ASKED FOR A SNACK, PROVIDED. ASSESSMENT COMPLETED. IV IS PATENT AND FLUSHES WELL. PT IS ON ROOM AIR, BREATHING IS EVEN AND UNLABORED. PT DENIES ANY PAIN OR DISCOMFORT AT THIS TIME. CALL LIGHT AND BEDSIDE TABLE WITHIN REACH. SAFETY PRECAUTIONS IN PLACE.
--- NOTE | 2022-06-22 | NUR ---
PT IS RESTING IN BED IN LOW SEMI-HU'S POSITION WITH EYES CLOSED. NO SIGNS OF PAIN OR DISTRESS NOTED NOR VERBALIZED AT THIS TIME. BREATHING IS EVEN AND UNLABORED. CALL LIGHT AND BEDSIDE TABLE WITHIN REACH.
[2022-06-22 03:49] VITALS: BP 130/74
--- NOTE | 2022-06-22 04:16 | NUR ---
PT RESTING IN BED IN SUPINE POSITION, EYES CLOSED. BREATHING IS EVEN AND UNLABORED. PT IS A&X4, ABLE TO COMMUNICATE NEEDS, DENIES ANY PAIN OR DISCOMFORT AT THIS TIME. PT REFUSED TO GET WEIGHTED, ASKED SEVERAL TIMES BY RD PROJECT MANAGER AND MYSELF. IV IS PATENT AND FLUSHES WELL. CALL LIGHT AND BEDSIDE TABLE WITHIN REACH. SAFETY PRECAUTIONS IN PLACE.
--- NOTE | 2022-06-22 05:37 | NUR ---
patient refused weight nurse notified
[2022-06-22 05:59] LABS: BASO% 0.3 % (0-3); EOS% 4.3 % (0-8); HEMATOCRIT 27.4 % (39.0-50.0); HEMOGLOBIN 8.8 g/dl (14.0-18.0); IMMATURE GRANULOCYTES 0.4 % (0.0-5.0); LYMPH% 25.1 % (15-41); MEAN CORPUSCULAR HGB 28.6 pG CALC (26.0-32.0); MEAN CORPUSCULAR HGB CONC 32.1 g/dL CAL (32.0-36.0); MONO% 6.6 % (2-13); NEUT# 6.36 thou/uL (1.82-7.42); NEUT% 63.3 % (42-76); RED BLOOD COUNT 3.08 mill/uL (4.70-6.10); RED CELL DISTRI WIDTH 14.9 % (11.5-15.5)
--- NOTE | 2022-06-22 06:05 | NUR ---
PT AGREED TO STEP ON THE SCALE TO GET HIS WEIGHT.
[2022-06-22 06:11] LABS: ALBUMIN 3.7 g/dL (3.2-5.0); BILIRUBIN, TOTAL 0.2 mg/dL (0.0-1.4); POTASSIUM 5.1 mmol/l (3.5-5.1); TOTAL PROTEIN 8.1 g/dL (6.3-8.2)
[2022-06-22 06:31] LABS: CREATININE 9.1 mg/dL (0.7-1.3)
[2022-06-22 07:04] VITALS: BP 120/61
[2022-06-22 10:42] VITALS: BP 150/98
--- NOTE | 2022-06-22 11:00 | NUR ---
PT ARRIVES TO ROOM 286 VIA WHEELCHAIR, ACCOMPANIED BY Raphael BOLANOS RN. REPORT RECEIVED FROM Raphael BOLANOS RN. CARE OF PT ASSUMED AT THIS TIME.
--- NOTE | 2022-06-22 11:14 | NUR ---
HEMODIALYSIS TREATMENT INITIATED AT 1114. SEE HEMODIALYSIS TREATMENT PROCESS INTERVENTION AND TABLO TREATMENT FLOWSHEET FOR TREATMENT SPECIFIC DETAILS.
--- NOTE | 2022-06-22 11:20 | NUR ---
PATIENT WENT TO DIALYSIS. PATIENT REFUSED BLOOD SUGAR CHECK. PATIENT REPORT NO PAIN OR DISCOMFORT.
[2022-06-22 15:30] VITALS: BP 157/86
--- NOTE | 2022-06-22 15:30 | NUR ---
HEMODIALYSIS TREATMENT COMPLETED AT 1530. SEE HEMODIALYSIS TREATMENT PROCESS INTERVENTION AND TABLO TREATMENT FLOWSHEET FOR TREATMENT SPECIFIC DETAILS.
--- NOTE | 2022-06-22 15:40 | NUR ---
PT RETURNED TO ROOM 279 VIA WHEELCHAIR. REPORT ENDORSED TO Raphael BOLANOS RN. CARE OF PT SURRENDERED AT THIS TIME.
--- NOTE | 2022-06-22 15:59 | NUR ---
Attempted to see pt this pm. He was in dialysis.
--- NOTE | 2022-06-22 17:30 | NUR ---
VANCO TROUGH 19, NO ADDITIONAL DOSE VANCOMYCIN NEEDED PER RX ORDERS. R-IJ DIALYSIS CATHETER D/C'd PER ORDERS. TIP INTACT.
== END 2022-06-22 18:30 | disposition home or self-care (01) | DRG 314 ==
LOC: ED 12:06 → ED-I 14:05 → ED 14:28 → MS2 14:29
PROVIDERS: Emergency Medicine; Internal Medicine; Internal Medicine Nephrology; Nurse Practitioner Family; ADMIT Internal Medicine; ATTEND Internal Medicine
PROC: 5A1D70Z Performance of Urinary Filtration, Intermittent, Less than 6 Hours Per Day (ICD-10-PCS; principal; 2022-06-10)
PROC: 5A1D70Z Performance of Urinary Filtration, Intermittent, Less than 6 Hours Per Day (ICD-10-PCS; 2022-06-13)
PROC: 05PYX3Z Removal of Infusion Device from Upper Vein, External Approach (ICD-10-PCS; 2022-06-13)
PROC: 05H533Z Insertion of Infusion Device into Right Subclavian Vein, Percutaneous Approach (ICD-10-PCS; 2022-06-13)
PROC: B516ZZA Fluoroscopy of Right Subclavian Vein, Guidance (ICD-10-PCS; 2022-06-13)
PROC: 5A1D70Z Performance of Urinary Filtration, Intermittent, Less than 6 Hours Per Day (ICD-10-PCS; 2022-06-15)
PROC: 5A1D70Z Performance of Urinary Filtration, Intermittent, Less than 6 Hours Per Day (ICD-10-PCS; 2022-06-19)
PROC: 5A1D70Z Performance of Urinary Filtration, Intermittent, Less than 6 Hours Per Day (ICD-10-PCS; 2022-06-20)
PROC: 5A1D70Z Performance of Urinary Filtration, Intermittent, Less than 6 Hours Per Day (ICD-10-PCS; 2022-06-22)
DX: T80.211A Bloodstream infection due to central venous catheter, initial encounter (principal); A41.02 Sepsis due to Methicillin resistant Staphylococcus aureus; N18.6 End stage renal disease; N25.81 Secondary hyperparathyroidism of renal origin; C95.90 Leukemia, unspecified not having achieved remission; E11.22 Type 2 diabetes mellitus with diabetic chronic kidney disease; D63.1 Anemia in chronic kidney disease; R49.22 Hyponasality; E11.40 Type 2 diabetes mellitus with diabetic neuropathy, unspecified; Y83.8 Other surgical procedures as the cause of abnormal reaction of the patient, or of later complication, without mention of misadventure at the time of the procedure; Z99.2 Dependence on renal dialysis; Z89.512 Acquired absence of left leg below knee; Z79.4 Long term (current) use of insulin; Z91.14 Patient's other noncompliance with medication regimen; Z86.16 Personal history of COVID-19; Z20.822 Contact with and (suspected) exposure to COVID-19
CPT/HCPCS: J1644; J1756; J3370; P9047; Q3014; Q5106 EC

== ENCOUNTER 2022-07-13 11:37 | Emergency (ER) | payer MEDICARE, MEDICAID ==
[~2022-07-13] VITALS: Ht 185.4 cm; Wt 77.1 kg
[2022-07-13 11:51] VITALS: BP 118/88
[2022-07-13 13:05] LABS: BASO% 0.6 % (0-3); HEMATOCRIT 31.5 % (39.0-50.0); HEMOGLOBIN 10.1 g/dl (14.0-18.0); IMMATURE GRANULOCYTES 0.2 % (0.0-5.0); LYMPH% 8.9 % (15-41); MEAN CORPUSCULAR HGB 27.9 pG CALC (26.0-32.0); MEAN CORPUSCULAR HGB CONC 32.1 g/dL CAL (32.0-36.0); MONO% 5.9 % (2-13); NEUT# 8.12 thou/uL (1.82-7.42); NEUT% 83.4 % (42-76); RED BLOOD COUNT 3.62 mill/uL (4.70-6.10); RED CELL DISTRI WIDTH 14.4 % (11.5-15.5)
[2022-07-13 13:33] LABS: ALBUMIN 4.2 g/dL (3.2-5.0); POTASSIUM 4.9 mmol/l (3.5-5.1); TOTAL PROTEIN 8.6 g/dL (6.3-8.2)
[2022-07-13 13:37] LABS: BILIRUBIN, TOTAL 0.4 mg/dL (0.2-1.3)
[2022-07-13 13:38] LABS: CREATININE 8.8 mg/dL (0.7-1.3)
[2022-07-13 13:47] VITALS: BP 145/85
[2022-07-13] MEDS ORDERED: GLYCERIN ADULT2 GM PR (13:51)
[2022-07-13] MEDS ORDERED: MIRALAX17 GM/SCOO PO (13:51)
[2022-07-13 14:01] VITALS: BP 145/77
[2022-07-13 14:40] VITALS: BP 145/77
== END 2022-07-13 14:40 | disposition home or self-care (01) ==
LOC: ED 11:37
PROVIDERS: Nurse Practitioner
DX: K59.00 Constipation, unspecified (principal); I12.0 Hypertensive chronic kidney disease with stage 5 chronic kidney disease or end stage renal disease; E11.22 Type 2 diabetes mellitus with diabetic chronic kidney disease; N18.6 End stage renal disease; E11.40 Type 2 diabetes mellitus with diabetic neuropathy, unspecified; Z99.2 Dependence on renal dialysis; Z79.4 Long term (current) use of insulin; Z89.512 Acquired absence of left leg below knee

== ENCOUNTER 2023-06-25 16:35 | Emergency (ER) | payer MEDICARE, MEDICAID ==
[~2023-06-25] VITALS: Ht 185.4 cm; Wt 85.7 kg
[2023-06-25] VITALS (13 sets, daily range): BP systolic 126–152; BP diastolic 62–92
[~2023-06-25 16:35] MED LIST changes: +GLYCERIN ADULT2 GM PR; +MIRALAX17 GM/SCOO PO
[2023-06-25 17:26] LABS: BASO% 0.4 % (0-3); EOS% 3.2 % (0-8); HEMATOCRIT 34.2 % (39.0-50.0); HEMOGLOBIN 10.9 g/dl (14.0-18.0); IMMATURE GRANULOCYTES 0.1 % (0.0-5.0); LYMPH% 12.5 % (15-41); MEAN CELL VOLUME 83.2 fL CALC (80.0-100.0); MEAN CORPUSCULAR HGB 26.5 pG CALC (26.0-32.0); MEAN CORPUSCULAR HGB CONC 31.9 g/dL CAL (32.0-36.0); MONO% 6.1 % (2-13); NEUT# 6.61 thou/uL (1.82-7.42); NEUT% 77.7 % (42-76); RED BLOOD COUNT 4.11 mill/uL (4.70-6.10)
[2023-06-25 17:45] LABS: ALBUMIN 3.8 g/dL (3.2-5.0); C-REACTIVE PROTEIN 0.9 mg/dL (0-0.9); TOTAL PROTEIN 7.9 g/dL (6.3-8.2)
[2023-06-25 17:51] LABS: BILIRUBIN, TOTAL 0.9 mg/dL (0.2-1.3); CREATININE 4.5 mg/dL (0.7-1.3); POTASSIUM 3.8 mmol/l (3.5-5.1)
[2023-06-25] MEDS ORDERED: LORTAB 5/3255 MG PO (18:57)
== END 2023-06-25 20:02 | disposition home or self-care (01) ==
LOC: ED 16:35
PROVIDERS: Nurse Practitioner
DX: T87.89 Other complications of amputation stump (principal); E11.65 Type 2 diabetes mellitus with hyperglycemia; E11.42 Type 2 diabetes mellitus with diabetic polyneuropathy; E11.22 Type 2 diabetes mellitus with diabetic chronic kidney disease; N18.6 End stage renal disease; Z99.2 Dependence on renal dialysis; C95.90 Leukemia, unspecified not having achieved remission; Z79.4 Long term (current) use of insulin; Y83.5 Amputation of limb(s) as the cause of abnormal reaction of the patient, or of later complication, without mention of misadventure at the time of the procedure; Z89.512 Acquired absence of left leg below knee

== ENCOUNTER 2023-06-28 12:34 | Emergency (ER) | payer MEDICARE, MEDICAID ==
[2023-06-28] VITALS (12 sets, daily range): BP systolic 106–177; BP diastolic 59–137
[~2023-06-28] VITALS: Ht 185.4 cm; Wt 82.0 kg
[~2023-06-28 12:34] MED LIST changes: +LORTAB 5/3255 MG PO
[2023-06-28 17:06] LABS: BASO% 0.3 % (0-3); EOS% 2.7 % (0-8); HEMATOCRIT 35.6 % (39.0-50.0); IMMATURE GRANULOCYTES 0.2 % (0.0-5.0); MEAN CORPUSCULAR HGB 26.3 pG CALC (26.0-32.0); MEAN CORPUSCULAR HGB CONC 30.9 g/dL CAL (32.0-36.0); MONO% 7.8 % (2-13); NEUT# 7.53 thou/uL (1.82-7.42); RED BLOOD COUNT 4.19 mill/uL (4.70-6.10)
[2023-06-28 17:23] LABS: ALBUMIN 3.7 g/dL (3.2-5.0); BILIRUBIN, TOTAL 0.9 mg/dL (0.2-1.3); C-REACTIVE PROTEIN 4.8 mg/dL (0-0.9); POTASSIUM 4.1 mmol/l (3.5-5.1); TOTAL PROTEIN 7.9 g/dL (6.3-8.2)
[2023-06-28 17:29] LABS: CREATININE 6.5 mg/dL (0.7-1.3)
[2023-06-29 00:32] VITALS: BP 106/59
== END 2023-06-29 00:40 ==
LOC: ED 12:34
PROVIDERS: Nurse Practitioner
DX: L03.211 Cellulitis of face (principal); E11.65 Type 2 diabetes mellitus with hyperglycemia; E87.5 Hyperkalemia; E11.22 Type 2 diabetes mellitus with diabetic chronic kidney disease; I12.0 Hypertensive chronic kidney disease with stage 5 chronic kidney disease or end stage renal disease; N18.6 End stage renal disease; Z99.2 Dependence on renal dialysis; E11.40 Type 2 diabetes mellitus with diabetic neuropathy, unspecified; C95.90 Leukemia, unspecified not having achieved remission; Z86.16 Personal history of COVID-19